=== PATIENT | male | born 1960 ===

== ENCOUNTER 2018-02-22 10:06 | Inpatient (IN) | payer MEDICARE, MEDICAID ==
[2018-02-22 10:16] VITALS: BMI 43.2
[2018-02-22] MEDS ORDERED: Albuterol-Ipratrop 3 mg / 0.5 (3 ml) UD INH STA ×2 (10:23→11:56)
[2018-02-22] MEDS ORDERED: Albuterol-Ipratrop 3 mg / 0.5 (3 ml) UD ONE ×2 (10:29→12:31)
[2018-02-22 11:16] LABS: BASO % 0.5 % (0.0-2.0); EOS % 0.3 % (0.0-4.0); HEMOGLOBIN 13.1 g/dL (12.0-18.0); MEAN CORPUSCULAR HEMOGLOBIN 30.6 pg (27.0-31.0); MEAN CORPUSCULAR HGB CONC 33.6 g/dL (33.0-37.0); MONO # 0.3 K/uL (0.0-0.8); MONO % 3.8 % (0.0-10.0); NEUT % 81.4 % (50.0-75.0); NRBC % 0.2 % (0.0-0.0); RBC 4.27 Mil/uL (4.40-5.90); RED CELL DISTRIBUTION WIDTH 15.4 % (11.5-14.5); WHITE BLOOD COUNT 7.4 K/uL (4.8-10.8)
[2018-02-22 11:33] LABS: ALB/GLOB RATIO 0.8 (1.0-2.1); ALBUMIN 4.2 g/dL (3.5-5.0); ALT/SGPT 27 U/L (21-72); AST/SGOT 62 U/L (17-59); B-TYPE NATRIURETIC PEPTIDE 159 pg/ml (0-900); BLOOD UREA NITROGEN 18 mg/dl (9-20); CALCIUM 8.8 mg/dL (8.4-10.2); GFR AFRICAN-AMERICAN > 60; GFR NON-AFRICAN AMERICAN > 60
[2018-02-22] MEDS ORDERED: Azithromycin 500 MG in Sodium Chloride 0.9% 250 ML IVPB STA (11:51)
[2018-02-22] MEDS ORDERED: Magnesium Sulfate 2 gm/50 ml 2 GM/50 ML BAG IVPB ONE (11:56)
--- NOTE | 2018-02-22 12:08 | ED PDOC ---
HPI: SOB/CHF/COPD Time Seen by Provider: 02/22/18 10:16 Chief Complaint (Nursing): Shortness Of Breath Chief Complaint (Provider): Shortness of breath History Per: Patient History/Exam Limitations: no limitations Onset/Duration Of Symptoms: Days (x3) Current Symptoms Are (Timing): Still Present Associated Symptoms: Productive Cough (clear phlegm ) Additional Complaint(s): Isac Mendez is a 57 year old male, with a past medical history of COPD and active smoker, HIV, HTN and depression, who was brought to the emergency department via EMS complaining of shortness of breath ongoing for x3 days associated with generalized weakness, cough and wheezing. Patient reports a productive cough with clear phlegm and dyspnea on exertion. Patient is currently using medications at home without relief. He denies any fever, chills , orthopnea or LOC. No further medical complaints. PMD: Dr. Dennis Past Medical History Reviewed: Historical Data, Nursing Documentation, Vital Signs Vital Signs: Last Vital Signs Temp 98.1 F 02/26/18 16:05 Pulse 91 H 02/26/18 16:05 Resp 18 02/26/18 16:05 BP 169/95 H 02/26/18 16:05 Pulse Ox 92 L 02/26/18 16:05 - Medical History PMH: Asthma, COPD, Depression, HIV, HTN - Surgical History Surgical History: Appendectomy - Family History Family History: States: Unknown Family Hx - Social History Current smoker - smoking cessation education provided: Yes (Heavy smoker >10 cigarretes daily) Alcohol: Social Drugs: Denies - Home Medications Home Medications: Ambulatory Orders Medication Instructions Recorded Budesonide/Formoterol Fumarate 2 puff IH Q12 02/22/18 [Symbicort 160-4.5 Mcg Inhaler] Dolutegravir Sodium [Tivicay] 50 mg PO HS 02/22/18 Emtricitabine/Tenofovir Diso 1 tab PO HS 02/22/18 [Truvada 200 MG-300 MG] Enalapril Maleate [Vasotec] 5 mg PO HS 02/22/18 Montelukast [Singulair] 10 mg PO HS 02/22/18 QUEtiapine [Seroquel] 100 mg PO HS 02/22/18 Sertraline [Zoloft] 100 mg PO Q12 02/22/18 Tiotropium [Spiriva] 18 mcg IH DAILY 02/22/18 clonazePAM [Klonopin] 0.5 mg PO Q12 02/22/18 Acetylcysteine 20% 2 ml INH RBID vial 02/26/18 Albuterol 0.083% [Albuterol 0.083% 2.5 mg INH RQ4 neb 02/26/18 Inhal Jennifer (2.5 mg/3 ml) UD] Enoxaparin [Lovenox] 40 mg SC DAILY syr 02/26/18 Methadone 5 mg PO DAILY tab 02/26/18 Methadone 30 mg PO DAILY tab 02/26/18 Nicotine 7 mg/24 hr [Nicoderm CQ] 1 patch TD DAILY patch 02/26/18 methylPREDNISolone [Solu-Medrol] 40 mg IVP Q8 ml 02/26/18 - Allergies Allergies/Adverse Reactions: Allergies Allergy/AdvReac Type Severity Reaction Status Date / Time No Known Allergies Allergy Verified 02/26/18 14:41 Review of Systems ROS Statement: Except As Marked, All Systems Reviewed And Found Negative Constitutional: Negative for: Fever, Chills Cardiovascular: Negative for: Chest Pain, Orthopnea Respiratory: Positive for: Cough (w/ clear phlegm), Shortness of Breath Gastrointestinal: Negative for: Vomiting, Abdominal Pain, Diarrhea Neurological: Positive for: Headache Physical Exam - Reviewed Nursing Documentation Reviewed: Yes Vital Signs Reviewed: Yes - Physical Exam Head Exam: Positive for: ATRAUMATIC, NORMAL INSPECTION, NORMOCEPHALIC Skin: Positive for: Normal Color, Warm, Dry, Rash (Scattered old appearing psoriatic rash ) Eye Exam: Positive for: Normal appearance, EOMI, PERRL ENT: Positive for: Normal ENT Inspection Neck: Positive for: Painless ROM Cardiovascular/Chest: Positive for: Regular Rate, Rhythm. Negative for: Murmur Respiratory: Positive for: Wheezing (bilateral ), Respiratory Distress ( moderate with cough and speaking partial sentences) Gastrointestinal/Abdominal: Positive for: Normal Exam (obese), Soft. Negative for: Tenderness Back: Positive for: Normal Inspection Extremity: Positive for: Normal ROM (full ROM to b/l lower extremities), Swelling (Trace edema to bilateral lower extremities with scattered ecchymosis ) Neurologic/Psych: Positive for: Alert, Oriented - Laboratory Results Result Diagrams: 02/23/18 06:15 02/23/18 06:15 - ECG O2 Sat by Pulse Oximetry: 96 (RA) Pulse Ox Interpretation: Normal Medical Decision Making Medical Decision Making: Time: 10:16 Initial Impression: COPD exacerbation r/o PNA or opportunistic infection. Initial Plan: --EKG --B-Type Natriuretic peptide --CMP --Troponin I --CBC w/ differential --Chest portable [RAD] --Duoneb 3 ml Inh --Zithromax 500 mg Sodium Chloride 0.9% 250 ml IVPB --Magnesium Sulfate 2 gm in 50 ml IVPB --SOLU-medrol 125 mg IVP --Blood culture --Reevaluation -CXR reviewed and revealed increased markings bilaterally. Read by me. -EKG: Normal sinus @ [address] changes and prolonged QTc 514. -Blood records reviewed, revealing no clinical significant abnormalities. Last CD-4 count was 563 in August. -Patient placed on Vapotherm for respiratory comfort. Given bronchodilators, he required Magnesium Sulfate and SOLU-medrol. We will initiate Azithromycin and obtain blood culture. 11:45 -Patient admitted to [facility] under PMD, Dr. Dennis. 12:30 -Discussed case with Dr. Page, [facility] resident. ----- Scribe Attestation: Documented by Bello Farmer, acting as a scribe for Candido Aleman MD. Provider Scribe Attestation: All medical record entries made by the Scribe were at my direction and personally dictated by me. I have reviewed the chart and agree that the record accurately reflects my personal performance of the history, physical exam, medical decision making, and the department course for this patient. I have also personally directed, reviewed, and agree with the discharge instructions and disposition. Disposition - Clinical Impression Clinical Impression: COPD exacerbation, HIV (human immunodeficiency virus infection), Respiratory failure - Patient ED Disposition Is Patient to be Admitted: Yes - Disposition Disposition Time: 11:45 Condition: STABLE - Pt Status Changed To: Hospital Disposition Of: Inpatient - Admit Certification Admit to Inpatient:: After my assessment, the patient will require hospitalization for at least two midnights. This is because of the severity of symptoms shown, intensity of services needed, and/or the medical risk in this patient being treated as an outpatient. - POA Present On Arrival: None
[2018-02-22] MEDS ORDERED: Azithromycin 500 MG IV IVPB ONE (12:31)
--- NOTE | 2018-02-22 12:51 | RAD ---
Date of service: 02/22/2018 HISTORY: Shortness of breath. COMPARISON: 10/12/2014. FINDINGS: LUNGS: No active pulmonary disease. PLEURA: No significant pleural effusion identified, no pneumothorax apparent. CARDIOVASCULAR: Normal. OSSEOUS STRUCTURES: No significant abnormalities. VISUALIZED UPPER ABDOMEN: Normal. OTHER FINDINGS: None. IMPRESSION: No active disease. No significant interval change compared to the prior examination(s).
--- NOTE | 2018-02-22 13:14 | CP.PCM.HP ---
History of Present Illness - History of Present Illness History of Present Illness: This is 57 y/o male with PMH of COPD, asymptomatic HIV (On ART), Hep C (treated) , substance abuse, hypertension, depression and Morbid obesity admitted to [facility] for evaluation and treatment of 3 days history of worsening dyspnea, and productive cough. As per patient, he gets SOB at rest since last 3 days, reports cough with occasional clear or white sputum (one episode of bloody sputum yesterday). Dyspnea associated with runny nose, occasional dizziness and palpitations, denies any fever, chills, recent weight changes, travel, or sick contact. Patient reports daily nonbloody/nonbilious vomiting. Patient is taking methadone and following up with Methadone clinic in [place]. PMD: Dr. Dennis PMH: COPD, asymptomatic HIV (On ART), Hep C (treated), substance abuse, hypertension and Morbid obesity PSH: Appendectomy Allg: NKDA Meds: Albuterol, Klonopin 0.5mg daily, Tivicay 50mg daily, Truvada PO daily, Enalapril 5mg daily, Advair, Montelukast 10mg, Seroquel 100mg, Zoloft 100mg daily, Spiriva, and Methadone 34mg daily (Confirmed with the clinic # [phone]) FH: Mother, decreased, hx with COPD. Father with multiple strokes, decreased SH: Patient lives with a girlfriend, Reports good family support: Brothers and sisters live in same town. Denies any recent use of alcohol or illicit drug use. smokes 2 cig/day currently ROS: As per HPI ER course: VS: Tm 99, HR 96, BP 141/93, RR 16, Spo2 92% PE: Moderate resp distress, wheezing, AAOx3 --EKG: NSR, incomplete RBBB, prolonged QT --CXR: No active disease, no significant interval change compared to the prior exam --B-Type Natriuretic peptide: 159 --CMP: wnl Na, K, cl, hco3, BUN and Cr, Significant for AST: 62, Alk phos: 134 --Troponin I: Negative x 1 --CBC w/ differential: No leukocytosis --Duoneb 3 ml Inh --Zithromax 500 mg Sodium Chloride 0.9% 250 ml IVPB --Magnesium Sulfate 2 gm in 50 ml IVPB --SOLU-medrol 125 mg IVP --Reglen 10mg IV --Blood culture Present on Admission - Present on Admission Any Indicators Present on Admission: No History of DVT/PE: No History of Uncontrolled Diabetes: No Urinary Catheter: No Decubitus Ulcer Present: No Past Patient History - Past Social History Alcohol: Social Drugs: Denies - CARDIAC Hx Hypertension: Yes - PULMONARY Hx Asthma: Yes Hx Chronic Obstructive Pulmonary Disease (COPD): Yes - ENDOCRINE/METABOLIC Hx Diabetes Mellitus Type 2: Yes (hx, not current) - HEMATOLOGICAL/ONCOLOGICAL Hx Human Immunodeficiency Virus (HIV): Yes - PSYCHIATRIC Hx Depression: Yes - SURGICAL HISTORY Hx Appendectomy: Yes - ANESTHESIA Hx Anesthesia: Yes Hx Anesthesia Reactions: No Meds Allergies/Adverse Reactions: Allergies Allergy/AdvReac Type Severity Reaction Status Date / Time No Known Allergies Allergy Verified 10/12/14 17:13 Physical Exam - Constitutional Appears: In Acute Distress, Other (Mild respiratory distress ) - Head Exam Head Exam: NORMAL INSPECTION - Eye Exam Eye Exam: EOMI, Normal appearance, PERRL. absent: Scleral icterus - ENT Exam ENT Exam: Mucous Membranes Moist Additional comments: no oral thrush - Neck Exam Neck exam: Positive for: Lymphadenopathy (anterior cervical). Negative for: Meningismus, Tenderness, Thyromegaly - Respiratory Exam Respiratory Exam: Decreased Breath Sounds, Rales, Wheezes. absent: Accessory Muscle Use Additional comments: On Oxygen NC - Cardiovascular Exam Cardiovascular Exam: REGULAR RHYTHM, +S1, +S2 - GI/Abdominal Exam GI & Abdominal Exam: Soft. absent: Rebound, Tenderness Additional comments: Abdominal obesity, Appendectomy surgical scar visible. Couldn't appreciate any organomegaly due to Obesity - Extremities Exam Extremities exam: Positive for: pedal edema (B/l), pedal pulses present. Negative for: tenderness - Back Exam Back exam: absent: CVA tenderness (L), CVA tenderness (R), muscle spasm, vertebral tenderness - Neurological Exam Neurological exam: Alert, CN II-XII Intact, Oriented x3, Reflexes Normal - Psychiatric Exam Psychiatric exam: Normal Affect - Skin Skin Exam: Dry, Intact, Normal Color, Warm Results - Vital Signs Recent Vital Signs: Last Vital Signs Temp 99 F 02/22/18 10:15 Pulse 88 02/22/18 12:43 Resp 22 08/03/18 12:43 BP 141/93 H 02/22/18 10:15 Pulse Ox 94 L 02/22/18 12:43 - Labs Result Diagrams: 02/22/18 10:49 02/22/18 10:49 Labs: Laboratory Results - last 24 hr 02/22/18 02/22/18 10:49 10:49 WBC 7.4 RBC 4.27 L Hgb 13.1 Hct 38.9 MCV 91.0 MCH 30.6 MCHC 33.6 RDW 15.4 H Plt Count 128 L D MPV 8.0 Neut % (Auto) 81.4 H Lymph % (Auto) 14.0 L [place] % (Auto) 3.8 Eos % (Auto) 0.3 Baso % (Auto) 0.5 Neut # (Auto) 6.0 Lymph # (Auto) 1.0 [place] # (Auto) 0.3 Eos # (Auto) 0.0 Baso # (Auto) 0.0 Sodium 139 Potassium 4.2 Chloride 99 Carbon Dioxide 29 Anion Gap 15 BUN 18 Creatinine 0.8 Est GFR ( Amer) > 60 Est GFR (Non-Af Amer) > 60 Random Glucose 116 H Calcium 8.8 Total Bilirubin 1.0 AST 62 H D ALT 27 Alkaline Phosphatase 134 H D Troponin I < 0.0120 NT-Pro-B Natriuret Pep 159 Total Protein 9.3 H Albumin 4.2 Globulin 5.1 H Albumin/Globulin Ratio 0.8 L Assessment & Plan - Assessment and Plan (Free Text) Assessment: A/P: 57 y/o male with PMH of COPD, asymptomatic HIV (On ART), Hep C (treated), substance abuse, hypertension, depression and Morbid obesity admitted to [facility] for evaluation and treatment of COPD exacerbation. COPD exacerbation - Acute on chronic - CXR: No active disease, no significant interval change compared to the prior exam - S/p ER: Duoneb 3 ml Inh, Zithromax 500 mg Sodium Chloride 0.9% 250 ml IVPB, Magnesium Sulfate 2 gm in 50 ml IVPB, SOLU-medrol 125 mg IVP - C/w Home meds: Albuterol HFA 2 puff Q6H PRN, Advair, Spiriva 18mcg daily, Montelukast 10mg daily - Monitor respiratory status: C/w NC as needed Human immunodeficiency virus (HIV) - Asymptomatic - Last CD4 count 563 (08/28/17) - C/w Tivicay 50mg daily, Truvada PO daily, compliant with medications ( Pharmacy was called and confirmed) - Dr. Dennis made aware of the admission History of Hepatitis C - Patient was treated in past, last treatment was 1 year ago Hypertension - Chronic, Controlled - C/w home medication: vasotec 5mg daily History of substance abuse - History of percocet and heroin abuse - C/w Methadone 34mg daily ([facility] methadone clinic was called and confirmed, # [phone]) Mood Disorders - Following up with psychiatrist at [facility] - C/w Home medications, Confirmed with pharmacy - Zoloft 100mg Q12H, Seroquel 100mg daily, klonopin 0.5mg Q12H DVT Prophylaxis - Lovenox 40mg SC Full Code Emergency Contact# [phone] (Sister, Molly Moralez)
[2018-02-22] MEDS ORDERED: Albuterol HFA 90 mcg/actuation (8 g) IH PRN (13:39)
[2018-02-22] MEDS ORDERED: Magnesium Sulfate 2 gm/50 ml 2 GM/50 ML BAG ONE (14:26)
[2018-02-22] MEDS: Tiotropium 18 mcg Cap For Inhalation IH SCH (16:38)
[2018-02-22] MEDS: Enoxaparin 40 mg Syringe SC SCH (16:41)
[2018-02-22] MEDS: Emtricitabine-Tenofovir 200 mg-300 mg Tab PO SCH (21:09)
[2018-02-22] MEDS: Fluticasone-Salmeterol 250-50mcg Diskus IH SCH (21:11)
[2018-02-23 07:18] LABS: BASO % 0.2 % (0.0-2.0); EOS % 0.5 % (0.0-4.0); HEMOGLOBIN 12.6 g/dL (12.0-18.0); LYMPH # 2.4 K/uL (1.0-4.3); MEAN CORPUSCULAR HEMOGLOBIN 30.8 pg (27.0-31.0); MEAN CORPUSCULAR HGB CONC 33.9 g/dL (33.0-37.0); MEAN PLATELET VOLUME 7.6 fl (7.2-11.7); MONO # 0.5 K/uL (0.0-0.8); MONO % 5.4 % (0.0-10.0); NEUT # 5.4 K/uL (1.8-7.0); NEUT % 64.9 % (50.0-75.0); NRBC % 0.1 % (0.0-0.0); RBC 4.09 Mil/uL (4.40-5.90); RED CELL DISTRIBUTION WIDTH 15.4 % (11.5-14.5); WHITE BLOOD COUNT 8.4 K/uL (4.8-10.8)
[2018-02-23 07:30] LABS: ALB/GLOB RATIO 0.8 (1.0-2.1); ALBUMIN 3.9 g/dL (3.5-5.0); ALT/SGPT 26 U/L (21-72); AST/SGOT 50 U/L (17-59); BLOOD UREA NITROGEN 18 mg/dl (9-20); CALCIUM 8.4 mg/dL (8.4-10.2); GFR AFRICAN-AMERICAN > 60; GFR NON-AFRICAN AMERICAN > 60
--- NOTE | 2018-02-23 07:54 | CARD ---
APPROVED REPORT Date of service: 02/22/2018 <Conclusion> Normal sinus rhythm Incomplete right bundle branch block Prolonged QT Abnormal ECG
[2018-02-23] MEDS: Fluticasone-Salmeterol 250-50mcg Diskus IH SCH ×2 (08:21→21:19)
[2018-02-23] MEDS: Tiotropium 18 mcg Cap For Inhalation IH SCH (08:22)
[2018-02-23] MEDS: Enoxaparin 40 mg Syringe SC SCH (08:23)
[2018-02-23] MEDS ORDERED: METHADONE PO SCH ×3 (09:00)
[2018-02-23] MEDS: MethylPREDNISolone 40 mg Vial IVP SCH ×2 (09:24→21:20)
--- NOTE | 2018-02-23 09:50 | CP.PCM.PN ---
Subjective - Date & Time of Evaluation Date of Evaluation: 02/23/18 Time of Evaluation: 08:00 - Subjective Subjective: Patient was seen and evaluated this morning at bedside, NAD. Patient is eating his breakfast, saturating at 96% on RA. Reports significant improved respiratory distressed compared to yesterday. Encouraged ambulation, Use NC as needed. Objective - Vital Signs/Intake and Output Vital Signs (last 24 hours): Temp Pulse Resp BP Pulse Ox 98.4 F 75 18 143/85 96 02/23/18 07:56 02/23/18 07:56 02/23/18 07:56 02/23/18 07:56 02/23/18 07:56 - Medications Medications: Current Medications Albuterol (Ventolin Hfa 90 Mcg/Actuation (8 G)) 2 puff IH Q6 PRN PRN Reason: Shortness of Breath Clonazepam (Klonopin) 0.5 mg PO Q12 [facility] Last Admin: 02/23/18 08:29 Dose: 0.5 mg Dolutegravir Sodium (Tivicay) 50 mg PO HS [facility] PRN Reason: Protocol Emtricitabine/Tenofovir (Truvada 200 Mg-300 Mg) 1 tab PO HS [facility] PRN Reason: Protocol Last Admin: 02/22/18 21:09 Dose: 1 tab Enalapril Maleate (Vasotec) 5 mg PO HS [facility] Last Admin: 02/22/18 21:11 Dose: 5 mg Enoxaparin Sodium (Lovenox) 40 mg SC DAILY [facility] PRN Reason: Protocol Last Admin: 02/23/18 08:23 Dose: 40 mg Methadone HCl (Methadone) 30 mg PO DAILY [facility] Last Admin: 02/23/18 09:28 Dose: 30 mg Methadone HCl (Methadone) 5 mg PO DAILY [facility] Last Admin: 02/23/18 09:27 Dose: 5 mg Methylprednisolone (Solu-Medrol) 40 mg IVP Q12 [facility] Last Admin: 02/23/18 09:24 Dose: 40 mg Montelukast Sodium (Singulair) 10 mg PO HS [facility] Last Admin: 02/22/18 21:09 Dose: 10 mg Nicotine (Nicoderm Cq) 1 patch TD DAILY [facility] Last Admin: 02/23/18 08:23 Dose: 1 patch Quetiapine Fumarate (Seroquel) 100 mg PO [facility] Last Admin: 02/22/18 21:10 Dose: 100 mg Fluticasone/Salmeterol (Advair Diskus 250/50) 1 puff IH Q12 [facility] Last Admin: 02/23/18 08:21 Dose: 1 puff Sertraline HCl (Zoloft) 100 mg PO Q12 [facility] Last Admin: 02/23/18 08:22 Dose: 100 mg Tiotropium [place] (Spiriva) 18 mcg IH DAILY [facility] Last Admin: 02/23/18 08:22 Dose: 18 mcg - Labs Labs: 02/23/18 06:15 02/23/18 06:15 - Constitutional Appears: No Acute Distress - Head Exam Head Exam: NORMAL INSPECTION - Eye Exam Eye Exam: EOMI, Normal appearance, PERRL Pupil Exam: NORMAL ACCOMODATION - ENT Exam ENT Exam: Mucous Membranes Moist - Neck Exam Neck Exam: Full ROM, Normal Inspection - Respiratory Exam Respiratory Exam: Decreased Breath Sounds, Prolonged Expiratory Phase, Wheezes, NORMAL BREATHING PATTERN. absent: Accessory Muscle Use, Respiratory Distress - Cardiovascular Exam Cardiovascular Exam: REGULAR RHYTHM, +S1, +S2 - GI/Abdominal Exam GI & Abdominal Exam: Soft. absent: Tenderness, Organomegaly, Pulsatile Mass, Rebound Additional comments: Abdominal obesity - Extremities Exam Extremities Exam: Full ROM, Normal Capillary Refill, Normal Inspection. absent : Pedal Edema - Back Exam Back Exam: NORMAL INSPECTION. absent: CVA tenderness (L), CVA tenderness (R) - Neurological Exam Neurological Exam: Alert, Awake, CN II-XII Intact, Normal Gait, Oriented x3 Neuro motor strength exam: Left Upper Extremity: 4, Right Upper Extremity: 4, Left Lower Extremity: 4, Right Lower Extremity: 4 - Psychiatric Exam Psychiatric exam: Normal Affect, Normal Mood - Skin Additional comments: rashes, possibly due to chronic conditions (Spider angiomas) Assessment and Plan - Assessment and Plan (Free Text) Assessment: A/P: 57 y/o male with PMH of COPD, asymptomatic HIV (On ART), Hep C (treated), substance abuse, hypertension, depression and Morbid obesity admitted to [facility] for evaluation and treatment of COPD exacerbation. COPD exacerbation - Acute on chronic - C/w Home meds: Albuterol HFA 2 puff Q6H PRN, Advair, Spiriva 18mcg daily, Montelukast 10mg daily - Monitor respiratory status: C/w NC as needed, encourage ambulation - C/w MethylPred 40mg IVP Q12H Human immunodeficiency virus (HIV) - Asymptomatic - Last CD4 count 563 (08/28/17) - C/w Tivicay 50mg daily, Truvada PO daily, compliant with medications ( Pharmacy was called and confirmed) - Dr. Dennis made aware of the admission History of Hepatitis C - Patient was treated in past, last treatment was 1 year ago Hypertension - Chronic, Controlled - C/w home medication: vasotec 5mg daily History of substance abuse - History of percocet and heroin abuse - C/w Methadone 35mg daily ([facility] methadone clinic was called and confirmed, # [phone]) Mood Disorders - Following up with psychiatrist at [facility] - C/w Home medications, Confirmed with pharmacy - Zoloft 100mg Q12H, Seroquel 100mg daily, klonopin 0.5mg Q12H DVT Prophylaxis - Lovenox 40mg SC Full Code Emergency Contact# [phone] (Sister, Molly Moralez)
[2018-02-23] MEDS ORDERED: Acetylcysteine 20% Inhal Soln (4ml) PO SCH (17:00)
[2018-02-23] MEDS ORDERED: Acetylcysteine 20% Inhal Soln (4ml) INH SCH (20:00)
[2018-02-23] MEDS: Acetylcysteine 20% Inhal Soln (4ml) INH SCH (20:11)
[2018-02-23] MEDS: Emtricitabine-Tenofovir 200 mg-300 mg Tab PO SCH (21:24)
[2018-02-24] MEDS: Acetylcysteine 20% Inhal Soln (4ml) INH SCH ×2 (08:05→19:29)
--- NOTE | 2018-02-24 08:32 | CP.PCM.PN ---
Subjective - Date & Time of Evaluation Date of Evaluation: 02/24/18 Time of Evaluation: 08:30 - Subjective Subjective: Patient seen and examined at bedside, reports SOB and wet cough continue with minimal exertion especially when walking to the bathroom. He has not been able to produce a sputum sample yet. Denies chest pain, fevers, chills or nasal congestion. Objective - Vital Signs/Intake and Output Vital Signs (last 24 hours): Temp Pulse Resp BP Pulse Ox 97.6 F 74 18 159/90 H 94 L 02/24/18 08:10 02/24/18 08:10 02/24/18 08:10 02/24/18 08:10 02/24/18 08:10 - Medications Medications: Current Medications Acetylcysteine (Acetylcysteine 20%) 2 ml INH RBID [facility] Last Admin: 02/23/18 20:11 Dose: Not Given Albuterol (Ventolin Hfa 90 Mcg/Actuation (8 G)) 2 puff IH Q6 PRN PRN Reason: Shortness of Breath Clonazepam (Klonopin) 0.5 mg PO Q12 [facility] Last Admin: 02/23/18 21:19 Dose: 0.5 mg Dolutegravir Sodium (Tivicay) 50 mg PO HS [facility] PRN Reason: Protocol Last Admin: 02/23/18 21:21 Dose: 50 mg Emtricitabine/Tenofovir (Truvada 200 Mg-300 Mg) 1 tab PO HS [facility] PRN Reason: Protocol Last Admin: 02/23/18 21:24 Dose: 1 tab Enalapril Maleate (Vasotec) 5 mg PO HS [facility] Last Admin: 02/23/18 21:22 Dose: 5 mg Enoxaparin Sodium (Lovenox) 40 mg SC DAILY [facility] PRN Reason: Protocol Last Admin: 02/23/18 08:23 Dose: 40 mg Methadone HCl (Methadone) 30 mg PO DAILY [facility] Last Admin: 02/23/18 09:28 Dose: 30 mg Methadone HCl (Methadone) 5 mg PO DAILY [facility] Last Admin: 02/23/18 09:27 Dose: 5 mg Methylprednisolone (Solu-Medrol) 40 mg IVP Q12 [facility] Last Admin: 02/23/18 21:20 Dose: 40 mg Montelukast Sodium (Singulair) 10 mg PO HS [facility] Last Admin: 02/23/18 21:20 Dose: 10 mg Nicotine (Nicoderm Cq) 1 patch TD DAILY [facility] Last Admin: 02/23/18 08:23 Dose: 1 patch Quetiapine Fumarate (Seroquel) 100 mg PO HS [facility] Last Admin: 02/23/18 21:19 Dose: 100 mg Fluticasone/Salmeterol (Advair Diskus 250/50) 1 puff IH Q12 [facility] Last Admin: 02/23/18 21:19 Dose: 1 puff Sertraline HCl (Zoloft) 100 mg PO Q12 [facility] Last Admin: 02/23/18 21:23 Dose: 100 mg Tiotropium [place] (Spiriva) 18 mcg IH DAILY [facility] Last Admin: 02/23/18 08:22 Dose: 18 mcg - Labs Labs: 02/23/18 06:15 02/23/18 06:15 - Constitutional Appears: No Acute Distress - Head Exam Head Exam: ATRAUMATIC, NORMOCEPHALIC - Eye Exam Eye Exam: EOMI - ENT Exam ENT Exam: Mucous Membranes Moist - Neck Exam Neck Exam: Full ROM - Respiratory Exam Respiratory Exam: Wheezes (significant diffuse wheezes ). absent: Accessory Muscle Use, Rales, Rhonchi Additional comments: on 2L supplemental O2 via nasal cannula - Cardiovascular Exam Cardiovascular Exam: +S1, +S2. absent: Murmur - GI/Abdominal Exam GI & Abdominal Exam: Soft (significant pannus), Normal Bowel Sounds. absent: Tenderness - Extremities Exam Extremities Exam: Full ROM - Neurological Exam Neurological Exam: Alert, Awake, CN II-XII Intact, Oriented x3 - Skin Skin Exam: Dry, Warm (spider angiomas diffuse over bilateral upper extremities, abdominal area and lower extremities) Assessment and Plan - Assessment and Plan (Free Text) Assessment: 57 yr old M admitted for COPD exacerbation with PMHx of COPD, asymptomatic HIV ( on ART), Hx Hep C (treated), substance abuse, hypertension, depression and morbid obesity. COPD exacerbation -Acute on chronic -continue albuterol 0.083% INH Q4, Methylprednisolone 40mg IVP Q8H, Mucomyst 2ml INH RBID, -continue home medications: Advair 1 puff IH Q12, Spiriva 18mcg IH daily, Montelukast 10mg PO QHS -2L supplemental O2 via nasal cannula to keep O2 sat above 92% -f/u 6min walk test -Pulmonology consult appreciated: Dr. Carey Human immunodeficiency virus (HIV) -Chronic, Asymptomatic -01/04/18: CD4 count 672, viral load < 20, -continue home medications: Tivicay 50mg daily, Truvada PO daily, compliant with medications (Pharmacy was called and confirmed) -Dr. Dennis made aware of the admission History of Hepatitis C -Patient was treated in past, last treatment was 1 year ago -no further workup required Hypertension -Chronic, uncontrolled -patient has elevated BP on occasion, will consider increasing vasotec -continue home medication: vasotec 5mg PO daily -monitor BP History of substance abuse -History of percocet and heroin abuse -continue Methadone 35mg daily ([facility] methadone clinic was called and confirmed, dose is 34mg PO QD, they approved giving 35mg as we only have doses in multiples of 5mg # [phone]) Mood Disorders -patient follows regularly with psychiatrist at [facility]mental health clinic across hospital -continue home medications (confirmed with pharmacy): Zoloft 100mg PO Q12H, Seroquel PO 100mg QD, klonopin 0.5mg PO Q12H -denies SI/HI at this time DVT Prophylaxis -Lovenox 40mg SC Full Code Emergency Contact# [phone] (Sister, Molly Moralez)
[2018-02-24] MEDS: Fluticasone-Salmeterol 250-50mcg Diskus IH SCH ×2 (08:58→21:30)
[2018-02-24] MEDS: MethylPREDNISolone 40 mg Vial IVP SCH ×2 (08:59→16:15)
[2018-02-24] MEDS: Enoxaparin 40 mg Syringe SC SCH (08:59)
[2018-02-24] MEDS: Tiotropium 18 mcg Cap For Inhalation IH SCH (09:00)
[2018-02-24] MEDS ORDERED: Albuterol-Ipratrop 3 mg / 0.5 (3 ml) UD INH PRN (09:15)
[2018-02-24] MEDS ORDERED: Albuterol 0.083% Inhal Sol (2.5 mg/3 mL) UD INH PRN (10:29)
[2018-02-24] MEDS ORDERED: Albuterol-Ipratrop 3 mg / 0.5 (3 ml) UD INH SCH (11:00)
[2018-02-24] MEDS: Albuterol 0.083% Inhal Sol (2.5 mg/3 mL) UD INH SCH ×3 (11:02→19:30)
[2018-02-24] MEDS: Emtricitabine-Tenofovir 200 mg-300 mg Tab PO SCH (21:34)
[2018-02-25] MEDS: Albuterol 0.083% Inhal Sol (2.5 mg/3 mL) UD INH SCH ×6 (00:10→19:40)
[2018-02-25] MEDS: MethylPREDNISolone 40 mg Vial IVP SCH ×3 (01:02→16:58)
[2018-02-25] MEDS: Acetylcysteine 20% Inhal Soln (4ml) INH SCH ×2 (07:48→19:40)
[2018-02-25] MEDS: Enoxaparin 40 mg Syringe SC SCH (08:25)
[2018-02-25] MEDS: Fluticasone-Salmeterol 250-50mcg Diskus IH SCH ×2 (08:26→22:00)
[2018-02-25] MEDS: Tiotropium 18 mcg Cap For Inhalation IH SCH (08:29)
--- NOTE | 2018-02-25 08:46 | CP.PCM.PN ---
Subjective - Date & Time of Evaluation Date of Evaluation: 02/25/18 Time of Evaluation: 07:45 - Subjective Subjective: Patient seen and examined this morning at bedside. NAD, patient is coughing, on 1.5 O2 NC (Used it whole night), reports SOB when he gets up to the bathroom. Patient is tolerating PO, coughing up yellow sputum, states medications helping with bringing up sputum. Denies any chest pain, fever, vomiting, diarrhea, dizziness, or weakness. will get EKG today (Previous one with QT prolongation) Objective - Vital Signs/Intake and Output Vital Signs (last 24 hours): Temp Pulse Resp BP Pulse Ox 97.8 F 67 20 148/80 95 02/25/18 05:00 02/25/18 05:00 02/25/18 05:00 02/25/18 05:00 02/25/18 05:00 - Medications Medications: Current Medications Acetylcysteine (Acetylcysteine 20%) 2 ml INH RBID [facility] Last Admin: 02/25/18 07:48 Dose: 2 ml Albuterol Sulfate (Albuterol 0.083% Inhal Jennifer (2.5 Mg/3 Ml) Ud) 2.5 mg INH RQ4 [facility] Last Admin: 02/25/18 07:48 Dose: 2.5 mg Clonazepam (Klonopin) 0.5 mg PO Q12 [facility] Last Admin: 02/25/18 08:26 Dose: 0.5 mg Dolutegravir Sodium (Tivicay) 50 mg PO HS [facility] PRN Reason: Protocol Last Admin: 02/24/18 21:33 Dose: 50 mg Emtricitabine/Tenofovir (Truvada 200 Mg-300 Mg) 1 tab PO HS [facility] PRN Reason: Protocol Last Admin: 02/24/18 21:34 Dose: 1 tab Enalapril Maleate (Vasotec) 5 mg PO HS [facility] Last Admin: 02/24/18 21:34 Dose: 5 mg Enoxaparin Sodium (Lovenox) 40 mg SC DAILY [facility] PRN Reason: Protocol Last Admin: 02/25/18 08:25 Dose: 40 mg Famotidine (Pepcid) 20 mg PO DAILY [facility] Last Admin: 02/25/18 08:27 Dose: 20 mg Methadone HCl (Methadone) 30 mg PO DAILY [facility] Last Admin: 02/25/18 08:26 Dose: 30 mg Methadone HCl (Methadone) 5 mg PO DAILY [facility] Last Admin: 02/25/18 08:29 Dose: 5 mg Methylprednisolone (Solu-Medrol) 40 mg IVP Q8 [facility] Last Admin: 02/25/18 08:25 Dose: 40 mg Montelukast Sodium (Singulair) 10 mg PO HS [facility] Last Admin: 02/24/18 21:31 Dose: 10 mg Nicotine (Nicoderm Cq) 1 patch TD DAILY [facility] Last Admin: 02/25/18 08:28 Dose: 1 patch Quetiapine Fumarate (Seroquel) 100 mg PO HS [facility] Last Admin: 02/24/18 21:31 Dose: 100 mg Fluticasone/Salmeterol (Advair Diskus 250/50) 1 puff IH Q12 [facility] Last Admin: 02/25/18 08:26 Dose: 1 puff Sertraline HCl (Zoloft) 100 mg PO Q12 [facility] Last Admin: 02/25/18 08:27 Dose: 100 mg Tiotropium [place] (Spiriva) 18 mcg IH DAILY [facility] Last Admin: 02/25/18 08:29 Dose: 18 mcg - Labs Labs: 02/23/18 06:15 02/23/18 06:15 - Constitutional Appears: No Acute Distress - Head Exam Head Exam: ATRAUMATIC, NORMAL INSPECTION, NORMOCEPHALIC - Eye Exam Eye Exam: EOMI, Normal appearance, PERRL Pupil Exam: NORMAL ACCOMODATION - ENT Exam ENT Exam: Mucous Membranes Moist - Neck Exam Neck Exam: Normal Inspection - Respiratory Exam Respiratory Exam: Decreased Breath Sounds, Wheezes (Scattered ), NORMAL BREATHING PATTERN. absent: Accessory Muscle Use - Cardiovascular Exam Cardiovascular Exam: REGULAR RHYTHM, +S1, +S2 - GI/Abdominal Exam GI & Abdominal Exam: Soft, Normal Bowel Sounds. absent: Tenderness Additional comments: Obese abdomen - Extremities Exam Extremities Exam: Normal Inspection. absent: Joint Swelling, Pedal Edema - Back Exam Back Exam: NORMAL INSPECTION. absent: CVA tenderness (L), CVA tenderness (R) - Neurological Exam Neurological Exam: Alert, Awake, CN II-XII Intact, Oriented x3 - Psychiatric Exam Psychiatric exam: Normal Affect - Skin Additional comments: Chronic rashes with spider angiomas Assessment and Plan - Assessment and Plan (Free Text) Assessment: A/P: 57 yr old M admitted for COPD exacerbation with PMHx of COPD, asymptomatic HIV ( on ART), Hx Hep C (treated), substance abuse, hypertension, depression and morbid obesity. COPD exacerbation -Acute on chronic -continue albuterol 0.083% INH Q4, Methylprednisolone 40mg IVP Q8H, Mucomyst 2ml INH RBID, -continue home medications: Advair 1 puff IH Q12, Spiriva 18mcg IH daily, Montelukast 10mg PO QHS -2L supplemental O2 via nasal cannula to keep O2 sat above 92% -f/u 6min walk test -Pulmonology consult appreciated: Dr. Carey QT prolongation and incomplete RBBB on initial EKG in ER - Follow up EKG Human immunodeficiency virus (HIV) -Chronic, Asymptomatic -01/04/18: CD4 count 672, viral load < 20, -continue home medications: Tivicay 50mg daily, Truvada PO daily, compliant with medications (Pharmacy was called and confirmed) -Dr. Dennis made aware of the admission History of Hepatitis C -Patient was treated in past, last treatment was 1 year ago -no further workup required Hypertension -Chronic, uncontrolled -patient has elevated BP on occasion, will consider increasing vasotec -continue home medication: vasotec 5mg PO daily -monitor BP History of substance abuse -History of percocet and heroin abuse -continue Methadone 35mg daily ([facility] methadone clinic was called and confirmed, dose is 34mg PO QD, they approved giving 35mg as we only have doses in multiples of 5mg # [phone]) Mood Disorders -patient follows regularly with psychiatrist at [facility]-mental health clinic across hospital -continue home medications (confirmed with pharmacy): Zoloft 100mg PO Q12H, Seroquel PO 100mg QD, klonopin 0.5mg PO Q12H -denies SI/HI at this time Preventive Care - Follow up B12, TSH and Folate - Follow up Alpha-1 antiT (Reports family hx of liver and lung conditions) DVT Prophylaxis -Lovenox 40mg SC Full Code Emergency Contact# [phone] (Sister, Molly Mroalez)
--- NOTE | 2018-02-25 13:37 | CP.PCM.CON ---
History of Present Illness - History of Present Illness History of Present Illness: Pulmonary consult called due to respiratory insufficiency, 57 y/o M, Hx of COPD/ Asthma, asymptomatic HIV on ART, Emphysema, IV drug abuse following up with Methadone clinic in [place]. Pt was brought on 02/24/18 via EMS to ER [facility] to be evaluated for gradually increased moderate to severe SOB that began 3 days [employer], associated to hacking cough with productive yellowish sputum and one episode of bloody sputum day [employer], generalized pain of moderate to severe intensity 8:10. Pt using Albuterol, Advair, Spiriva at home with no relief. Worsening symptoms: KHAN, SOB at rest, active heavy smoker, headache, morbid obesity BMI: 43.2 Aggravated factor: Movements/Exercise. Pt denied: Fever, chills, n/v/d, abdominal pain, urinary symptoms, CP, LOC, palpitations, sick contact, recent travel out of [facility]. CXR: No active disease EKG: Normal sinus rhythm. Review of Systems - Constitutional Constitutional: Headache - EENT Eyes: Other (negative) Ears: Other (negative) Nose/Mouth/Throat: Other (negative) - Cardiovascular Cardiovascular: Orthopnea - Respiratory Respiratory: Cough, Dyspnea, Dyspnea on Exertion, Wheezing - Gastrointestinal Gastrointestinal: Other (negative) - Genitourinary Genitourinary: Other (negative) - Musculoskeletal Musculoskeletal: Other (Generalized pain) - Integumentary Integumentary: Rash (chronic) - Neurological Neurological: Headaches - Psychiatric Psychiatric: Anxiety, Depression - Endocrine Endocrine: Other (morbid obesity) - Hematologic/Lymphatic Hematologic: Other (negative) Past Patient History - Past Medical History & Family History Past Medical History?: Yes Pertinent Family History: Mother COPD. Father: Multiple silva. - Past Social History Smoking Status: Light Smoker < 10 Cigarettes Daily Alcohol: None Drugs: Other (IV drug abuse) Home Situation {Lives}: Alone - CARDIAC Hx Cardiac Disorders: Yes Hx Hypertension: Yes - PULMONARY Hx Respiratory Disorders: Yes Hx Asthma: Yes Hx Chronic Obstructive Pulmonary Disease (COPD): Yes - HEENT Hx HEENT Problems: No - RENAL Hx Chronic Kidney Disease: No - ENDOCRINE/METABOLIC Hx Endocrine Disorders: Yes Hx Diabetes Mellitus Type 2: Yes (hx, not current) - HEMATOLOGICAL/ONCOLOGICAL Hx Blood Disorders: Yes Hx Human Immunodeficiency Virus (HIV): Yes - INTEGUMENTARY Hx Dermatological Problems: Yes Other/Comment: rashes - MUSCULOSKELETAL/RHEUMATOLOGICAL Hx Musculoskeletal Disorders: Yes (generalized body pain.) Hx Falls: No - GASTROINTESTINAL Hx Gastrointestinal Disorders: No - GENITOURINARY/GYNECOLOGICAL Hx Genitourinary Disorders: No - PSYCHIATRIC Hx Psychophysiologic Disorder: Yes Hx Anxiety: Yes Hx Depression: Yes Hx Substance Use: Yes - SURGICAL HISTORY Hx Surgeries: Yes Hx Appendectomy: Yes - ANESTHESIA Hx Anesthesia: Yes Hx Anesthesia Reactions: No Meds Allergies/Adverse Reactions: Allergies Allergy/AdvReac Type Severity Reaction Status Date / Time No Known Allergies Allergy Verified 10/12/14 17:13 - Medications Medications: Current Medications Acetylcysteine (Acetylcysteine 20%) 2 ml INH RBID [facility] Last Admin: 02/25/18 07:48 Dose: 2 ml Albuterol Sulfate (Albuterol 0.083% Inhal Jennifer (2.5 Mg/3 Ml) Ud) 2.5 mg INH RQ4 [facility] Last Admin: 02/25/18 11:21 Dose: 2.5 mg Clonazepam (Klonopin) 0.5 mg PO Q12 [facility] Last Admin: 02/25/18 08:26 Dose: 0.5 mg Dolutegravir Sodium (Tivicay) 50 mg PO HS [facility] PRN Reason: Protocol Last Admin: 02/24/18 21:33 Dose: 50 mg Emtricitabine/Tenofovir (Truvada 200 Mg-300 Mg) 1 tab PO HS [facility] PRN Reason: Protocol Last Admin: 02/24/18 21:34 Dose: 1 tab Enalapril Maleate (Vasotec) 5 mg PO HS [facility] Last Admin: 02/24/18 21:34 Dose: 5 mg Enoxaparin Sodium (Lovenox) 40 mg SC DAILY [facility] PRN Reason: Protocol Last Admin: 02/25/18 08:25 Dose: 40 mg Famotidine (Pepcid) 20 mg PO DAILY [facility] Last Admin: 02/25/18 08:27 Dose: 20 mg Methadone HCl (Methadone) 30 mg PO DAILY [facility] Last Admin: 02/25/18 08:26 Dose: 30 mg Methadone HCl (Methadone) 5 mg PO DAILY [facility] Last Admin: 02/25/18 08:29 Dose: 5 mg Methylprednisolone (Solu-Medrol) 40 mg IVP Q8 [facility] Last Admin: 02/25/18 08:25 Dose: 40 mg Montelukast Sodium (Singulair) 10 mg PO HS [facility] Last Admin: 02/24/18 21:31 Dose: 10 mg Nicotine (Nicoderm Cq) 1 patch TD DAILY [facility] Last Admin: 02/25/18 08:28 Dose: 1 patch Quetiapine Fumarate (Seroquel) 100 mg PO HS [facility] Last Admin: 02/24/18 21:31 Dose: 100 mg Fluticasone/Salmeterol (Advair Diskus 250/50) 1 puff IH Q12 [facility] Last Admin: 02/25/18 08:26 Dose: 1 puff Sertraline HCl (Zoloft) 100 mg PO Q12 [facility] Last Admin: 02/25/18 08:27 Dose: 100 mg Tiotropium [place] (Spiriva) 18 mcg IH DAILY [facility] Last Admin: 02/25/18 08:29 Dose: 18 mcg Physical Exam - Constitutional Appears: Chronically Ill - Head Exam Head Exam: NORMAL INSPECTION - Eye Exam Eye Exam: PERRL - ENT Exam ENT Exam: Normal Exam - Neck Exam Neck exam: Positive for: Normal Inspection - Respiratory Exam Respiratory Exam: Decreased Breath Sounds (b/l), Wheezes - Cardiovascular Exam Cardiovascular Exam: REGULAR RHYTHM - GI/Abdominal Exam GI & Abdominal Exam: Normal Bowel Sounds, Soft Additional comments: Large abdomen, obese. - Extremities Exam Extremities exam: Positive for: pedal edema (b/l), pedal pulses present - Back Exam Back exam: NORMAL INSPECTION. absent: CVA tenderness (L), CVA tenderness (R) - Neurological Exam Neurological exam: Alert, Oriented x3 Additional comments: No motor/sensory deficit. - Psychiatric Exam Psychiatric exam: Normal Mood - Skin Skin Exam: Rash, Warm Results - Vital Signs Recent Vital Signs: Last Vital Signs Temp 97.6 F 02/25/18 08:00 Pulse 69 02/25/18 08:00 Resp 20 02/25/18 08:00 BP 147/82 02/25/18 08:00 Pulse Ox 93 L 02/25/18 08:00 reviewed Enoc - Labs Result Diagrams: 02/23/18 06:15 02/23/18 06:15 Labs: reviewed J.PKalliereviewed J.PKallie - EKG Data EKG comments: reviewed LeonoraPKallie - Imaging and Cardiology Chest x-ray Status: Report reviewed by me (J.P.) Assessment & Plan (1) Acute exacerbation of COPD with asthma Status: Acute Priority: High (2) HIV (human immunodeficiency virus infection) Status: Acute Priority: High - Assessment and Plan (Free Text) Plan: Continue NC 2 L/M, Solu-Medrol, Albuterol, Advair, Spiriva and rest of Tx. - Date & Time Date: 02/25/18 Time: 11:15
[2018-02-25 14:17] LABS: ABG ALLEN TEST YES; ARTERIAL BLOOD GAS HCO3 26.5 mmol/L (21-28); ARTERIAL BLOOD GAS HEMOGLOBIN 13.6 g/dL (11.7-17.4); ARTERIAL BLOOD GAS O2 CAPACITY 18.5 mL/dL (16-24); ARTERIAL BLOOD GAS O2 CONTENT 17.7 ML/dL (15-23); ARTERIAL BLOOD GAS O2 SAT 95.8 % (95-98); ARTERIAL BLOOD GAS PCO2 43 mm/Hg (35-45); ARTERIAL BLOOD GAS PH 7.41 (7.35-7.45); ARTERIAL BLOOD GAS PO2 73 mm/Hg (80-100); ARTERIAL BLOOD GAS TCO2 28.6 mmol/L (22-28)
--- NOTE | 2018-02-25 18:20 | CARD ---
APPROVED REPORT Date of service: 02/25/2018 <Conclusion> Normal sinus rhythm Right bundle branch block Abnormal ECG
[2018-02-25] MEDS: Emtricitabine-Tenofovir 200 mg-300 mg Tab PO SCH (22:03)
[2018-02-26] MEDS: Albuterol 0.083% Inhal Sol (2.5 mg/3 mL) UD INH SCH ×6 (00:07→23:18)
[2018-02-26 00:22] VITALS: RESP 18
[2018-02-26] MEDS: MethylPREDNISolone 40 mg Vial IVP SCH ×2 (00:55→08:42)
[2018-02-26] MEDS: Acetylcysteine 20% Inhal Soln (4ml) INH SCH (08:08)
[2018-02-26] MEDS: Fluticasone-Salmeterol 250-50mcg Diskus IH SCH (08:41)
[2018-02-26] MEDS: Enoxaparin 40 mg Syringe SC SCH (08:41)
[2018-02-26] MEDS: Tiotropium 18 mcg Cap For Inhalation IH SCH (08:42)
--- NOTE | 2018-02-26 11:39 | CP.PCM.PN ---
Subjective - Date & Time of Evaluation Date of Evaluation: 02/26/18 Time of Evaluation: 07:30 - Subjective Subjective: Patient seen and examined this morning at bedside, NAD. Continues using NC overnight and coughing overnight, states SOB with exertion. 6 mins walk test was stopped yesterday due to de-saturation. Tolerating PO intake, denies any dizziness, chest pain, abdominal pain, f/c/n/v/d. Objective - Vital Signs/Intake and Output Vital Signs (last 24 hours): Temp Pulse Resp BP Pulse Ox 97.7 F 78 18 124/77 94 L 02/26/18 08:16 02/26/18 08:16 02/26/18 08:16 02/26/18 08:16 02/26/18 08:16 - Medications Medications: Current Medications Acetylcysteine (Acetylcysteine 20%) 2 ml INH RBID [facility] Last Admin: 02/26/18 08:08 Dose: 2 ml Albuterol Sulfate (Albuterol 0.083% Inhal Jennifer (2.5 Mg/3 Ml) Ud) 2.5 mg INH RQ4 [facility] Last Admin: 02/26/18 08:07 Dose: 2.5 mg Clonazepam (Klonopin) 0.5 mg PO Q12 [facility] Last Admin: 02/26/18 08:40 Dose: 0.5 mg Dolutegravir Sodium (Tivicay) 50 mg PO HS [facility] PRN Reason: Protocol Last Admin: 02/25/18 22:02 Dose: 50 mg Emtricitabine/Tenofovir (Truvada 200 Mg-300 Mg) 1 tab PO HS [facility] PRN Reason: Protocol Last Admin: 02/25/18 22:03 Dose: 1 tab Enalapril Maleate (Vasotec) 5 mg PO HS [facility] Last Admin: 02/25/18 22:12 Dose: Not Given Enoxaparin Sodium (Lovenox) 40 mg SC DAILY [facility] PRN Reason: Protocol Last Admin: 02/26/18 08:41 Dose: 40 mg Famotidine (Pepcid) 20 mg PO DAILY [facility] Last Admin: 02/26/18 08:45 Dose: 20 mg Methadone HCl (Methadone) 30 mg PO DAILY [facility] Last Admin: 02/26/18 08:39 Dose: 30 mg Methadone HCl (Methadone) 5 mg PO DAILY [facility] Last Admin: 02/26/18 08:40 Dose: 5 mg Methylprednisolone (Solu-Medrol) 40 mg IVP Q8 [facility] Last Admin: 02/26/18 08:42 Dose: 40 mg Montelukast Sodium (Singulair) 10 mg PO [facility] Last Admin: 02/25/18 22:01 Dose: 10 mg Nicotine (Nicoderm Cq) 1 patch TD DAILY [facility] Last Admin: 02/26/18 08:43 Dose: 1 patch Quetiapine Fumarate (Seroquel) 100 mg PO [facility] Last Admin: 02/25/18 22:01 Dose: 100 mg Fluticasone/Salmeterol (Advair Diskus 250/50) 1 puff IH Q12 [facility] Last Admin: 02/26/18 08:41 Dose: 1 puff Sertraline HCl (Zoloft) 100 mg PO Q12 [facility] Last Admin: 02/26/18 08:42 Dose: 100 mg Tiotropium [place] (Spiriva) 18 mcg IH DAILY [facility] Last Admin: 02/26/18 08:42 Dose: 18 mcg - Labs Labs: 02/23/18 06:15 02/23/18 06:15 - Constitutional Appears: No Acute Distress - Head Exam Head Exam: NORMAL INSPECTION - Eye Exam Eye Exam: EOMI, Normal appearance, PERRL Pupil Exam: NORMAL ACCOMODATION - ENT Exam ENT Exam: Mucous Membranes Moist - Neck Exam Neck Exam: Full ROM, Normal Inspection - Respiratory Exam Respiratory Exam: Decreased Breath Sounds, Prolonged Expiratory Phase, Rales, Wheezes (Scattered ), NORMAL BREATHING PATTERN. absent: Accessory Muscle Use, Chest Wall Tenderness, Respiratory Distress - Cardiovascular Exam Cardiovascular Exam: REGULAR RHYTHM, +S1, +S2 - GI/Abdominal Exam GI & Abdominal Exam: Soft, Normal Bowel Sounds. absent: Tenderness - Extremities Exam Extremities Exam: Normal Inspection - Back Exam Back Exam: absent: CVA tenderness (L), CVA tenderness (R) - Neurological Exam Neurological Exam: Alert, Awake, CN II-XII Intact, Oriented x3 Neuro motor strength exam: Left Upper Extremity: 4, Right Upper Extremity: 4, Left Lower Extremity: 4, Right Lower Extremity: 4 - Psychiatric Exam Psychiatric exam: Normal Affect - Skin Additional comments: Chronic skin rashes Assessment and Plan - Assessment and Plan (Free Text) Assessment: A/P: 57 yr old M admitted for COPD exacerbation with PMHx of COPD, asymptomatic HIV ( on ART), Hx Hep C (treated), substance abuse, hypertension, depression and morbid obesity. COPD exacerbation -Acute on chronic -Pulmonology consult appreciated: Dr. Carey -continue albuterol 0.083% INH Q4, Methylprednisolone 40mg IVP Q8H, Mucomyst 2ml INH RBID, -continue home medications: Advair 1 puff IH Q12, Spiriva 18mcg IH daily, Montelukast 10mg PO QHS -2L supplemental O2 via nasal cannula to keep O2 sat above 92% -Possible TCU placement Human immunodeficiency virus (HIV) -Chronic, Asymptomatic -01/04/18: CD4 count 672, viral load < 20, -continue home medications: Tivicay 50mg daily, Truvada PO daily, compliant with medications (Pharmacy was called and confirmed) -Dr. Dennis made aware of the admission History of Hepatitis C -Patient was treated in past, last treatment was 1 year ago -no further workup required Hypertension -Chronic, uncontrolled -patient has elevated BP on occasion, will consider increasing vasotec -continue home medication: vasotec 5mg PO daily -monitor BP History of substance abuse -History of percocet and heroin abuse -continue Methadone 35mg daily ([facility] methadone clinic was called and confirmed, dose is 34mg PO QD, they approved giving 35mg as we only have doses in multiples of 5mg # [phone]) Mood Disorders -patient follows regularly with psychiatrist at [facility]mental health clinic across hospital -continue home medications (confirmed with pharmacy): Zoloft 100mg PO Q12H, Seroquel PO 100mg QD, klonopin 0.5mg PO Q12H -denies SI/HI at this time Preventive Care - B12, TSH wnl, follow up Folate - Alpha-1 antiT: Negative (Reports family hx of liver and lung conditions) DVT Prophylaxis -Lovenox 40mg SC Full Code Emergency Contact# [phone] (Sister, Molly Moralez)
--- NOTE | 2018-02-26 12:37 | CP.PCM.DIS ---
Provider - Provider Date of Admission: 02/22/18 11:55 Attending physician: Elda López MD Primary care physician: PMD: Dr. Dennis Consults: Pulmonary, Dr. Carey Time Spent in preparation of Discharge (in minutes): 40 Diagnosis - Discharge Diagnosis (1) COPD exacerbation Status: Acute Comment: Consult Dr. Carey, Pulmonary (2) HIV (human immunodeficiency virus infection) Status: Chronic (3) Hypertension Status: Chronic (4) Substance abuse Status: Chronic (5) Mood disorder Status: Chronic Hospital Course - Lab Results Lab Results: Micro Results 02/22/18 11:00 Blood Blood Culture - Preliminary NO GROWTH AFTER 3 DAYS 02/22/18 10:30 Blood Blood Culture - Preliminary NO GROWTH AFTER 3 DAYS Most Recent Lab Values WBC 8.4 K/uL (4.8-10.8) 02/23/18 06:15 RBC 4.09 Mil/uL (4.40-5.90) L 02/23/18 06:15 Hgb 12.6 g/dL (12.0-18.0) 02/23/18 06:15 Hct 37.2 % (35.0-51.0) 02/23/18 06:15 MCV 91.0 fl (80.0-94.0) 02/23/18 06:15 MCH 30.8 pg (27.0-31.0) 02/23/18 06:15 MCHC 33.9 g/dL (33.0-37.0) 02/23/18 06:15 RDW 15.4 % (11.5-14.5) H 02/23/18 06:15 Plt Count 133 K/uL (130-400) 02/23/18 06:15 MPV 7.6 fl (7.2-11.7) 02/23/18 06:15 Neut % (Auto) 64.9 % (50.0-75.0) 02/23/18 06:15 Lymph % (Auto) 29.0 % (20.0-40.0) 02/23/18 06:15 [place] % (Auto) 5.4 % (0.0-10.0) 02/23/18 06:15 Eos % (Auto) 0.5 % (0.0-4.0) 02/23/18 06:15 Baso % (Auto) 0.2 % (0.0-2.0) 02/23/18 06:15 Neut # (Auto) 5.4 K/uL (1.8-7.0) 02/23/18 06:15 Lymph # (Auto) 2.4 K/uL (1.0-4.3) 02/23/18 06:15 [place] # (Auto) 0.5 K/uL (0.0-0.8) 02/23/18 06:15 Eos # (Auto) 0.0 K/uL (0.0-0.7) 02/23/18 06:15 Baso # (Auto) 0.0 K/uL (0.0-0.2) 02/23/18 06:15 pCO2 43 mm/Hg (35-45) 02/25/18 13:40 pO2 73 mm/Hg (80-100) L 02/25/18 13:40 HCO3 26.5 mmol/L (21-28) 02/25/18 13:40 ABG pH 7.41 (7.35-7.45) 02/25/18 13:40 ABG Total CO2 28.6 mmol/L (22-28) H 02/25/18 13:40 ABG O2 Saturation 95.8 % (95-98) 02/25/18 13:40 ABG O2 Content 17.7 ML/dL (15-23) 02/25/18 13:40 ABG Base Excess 2.2 mmol/L (-2.0-3.0) 02/25/18 13:40 ABG Hemoglobin 13.6 g/dL (11.7-17.4) 02/25/18 13:40 ABG Carboxyhemoglobin 2.1 % (0.5-1.5) H 02/25/18 13:40 POC ABG HHb (Measured) 4.0 % (0.0-5.0) 02/25/18 13:40 ABG Methemoglobin 1.7 % (0.0-3.0) 02/25/18 13:40 ABG O2 Capacity 18.5 mL/dL (16-24) 02/25/18 13:40 [place] Test Yes 02/25/18 13:40 A-a O2 Difference 23.0 mm/Hg 02/25/18 13:40 Hgb O2 Saturation 92.2 % (95.0-98.0) L 02/25/18 13:40 FiO2 21.0 % 02/25/18 13:40 Sodium 140 mmol/l (132-148) 02/23/18 06:15 Potassium 4.2 MMOL/L (3.6-5.0) 02/23/18 06:15 Chloride 101 mmol/L (98-107) 02/23/18 06:15 Carbon Dioxide 29 mmol/L (22-30) 02/23/18 06:15 Anion Gap 14 (10-20) 02/23/18 06:15 BUN 18 mg/dl (9-20) 02/23/18 06:15 Creatinine 0.8 mg/dl (0.8-1.5) 02/23/18 06:15 Est GFR ( Amer) > 60 02/23/18 06:15 Est GFR (Non-Af Amer) > 60 02/23/18 06:15 POC Glucose (mg/dL) 133 mg/dL (65-110) H 02/22/18 17:32 Random Glucose 71 mg/dL (75-110) L 02/23/18 06:15 Calcium 8.4 mg/dL (8.4-10.2) 02/23/18 06:15 Total Bilirubin 0.7 mg/dl (0.2-1.3) 02/23/18 06:15 AST 50 U/L (17-59) 02/23/18 06:15 ALT 26 U/L (21-72) 02/23/18 06:15 Alkaline Phosphatase 108 U/L (38-126) 02/23/18 06:15 Troponin I < 0.0120 ng/mL (0.00-0.120) 02/22/18 10:49 NT-Pro-B Natriuret Pep 159 pg/ml (0-900) 02/22/18 10:49 Total Protein 8.8 G/DL (6.3-8.2) H 02/23/18 06:15 Albumin 3.9 g/dL (3.5-5.0) 02/23/18 06:15 Globulin 4.9 gm/dL (2.2-3.9) H 02/23/18 06:15 Albumin/Globulin Ratio 0.8 (1.0-2.1) L 02/23/18 06:15 Uvvmy-2-Iujggposgng 184 mg/dL (83-199) 02/25/18 04:50 Vitamin B12 670 pg/mL (239-931) 02/26/18 04:55 TSH 3rd Generation 1.05 mIU/ML (0.46-4.68) 02/26/18 04:55 - Hospital Course Hospital Course: This is 57 y/o male with PMH of COPD, asymptomatic HIV (On ART), Hep C (treated) , substance abuse, hypertension, depression and Morbid obesity admitted to [facility] for evaluation and treatment of COPD exacerbation. CXR negative for any acute changes, EKG: NSR with RBBB. Patient was started on steroids and c/w home medications. Dr. Carey, pulmonary was consulted on the case. In hospital, patient failed 6 mins walk test off the oxygen NC and requires oxygen at rest. Patient is taking methadone and following up with Methadone clinic [place]. Patient will be discharge to TCU for further evaluation and treatment. Will consult Dr. Carey, pulmonary for TCU management. - C/w home medications: Albuterol, Klonopin 0.5mg daily, Tivicay 50mg daily, Truvada PO daily, Enalapril 5mg daily, Advair, Montelukast 10mg, Seroquel 100mg , Zoloft 100mg daily, Spiriva, and Methadone 34mg daily (Confirmed with the clinic # [phone]) - New medication: C/w MethylPred 40mg Q6H daily Discharge Exam - Head Exam Head Exam: NORMAL INSPECTION - Eye Exam Eye Exam: EOMI, Normal appearance, PERRL Pupil Exam: NORMAL ACCOMODATION - ENT Exam ENT Exam: Mucous Membranes Moist - Neck Exam Neck exam: Full Rom - Respiratory Exam Respiratory Exam: Decreased Breath Sounds, Prolonged Expiratory Phase, Rales, Wheezes, NORMAL BREATHING PATTERN. absent: Accessory Muscle Use, Chest Wall Tenderness - Cardiovascular Exam Cardiovascular Exam: REGULAR RHYTHM, +S1, +S2 - GI/Abdominal Exam GI & Abdominal Exam: Normal Bowel Sounds, Soft. absent: Tenderness Additional comments: Obese abdomen - Back Exam Back exam: absent: CVA tenderness (L), CVA tenderness (R) - Neurological Exam Neurological exam: Alert, CN II-XII Intact, Oriented x3, Reflexes Normal - Psychiatric Exam Psychiatric exam: Normal Affect - Skin Additional comments: Chronic diffuse rash with spider angiomas Discharge Plan - Follow Up Plan Condition: STABLE Disposition: REHAB FACILITY/REHAB UNIT Instructions: Quitting Smoking, Exacerbation of COPD (DC) Additional Instructions: - Transferred to TCU - C/w home medications and current management - PT/OT daily Referrals: Chad Carey MD [Staff Provider] -
--- NOTE | 2018-02-26 13:31 | CP.PCM.PN ---
Subjective - Date & Time of Evaluation Date of Evaluation: 02/26/18 Time of Evaluation: 12:20 - Subjective Subjective: F/U COPD/Asthma Ex. Pt Pt breathing well, no SOB at rest, KHAN improved with O2. Objective - Vital Signs/Intake and Output Vital Signs (last 24 hours): Temp Pulse Resp BP Pulse Ox 97.7 F 84 18 154/75 H 93 L 02/26/18 12:18 02/26/18 12:18 02/26/18 12:18 02/26/18 12:18 02/26/18 12:18 - Medications Medications: Current Medications Acetylcysteine (Acetylcysteine 20%) 2 ml INH RBID [facility] Last Admin: 02/26/18 08:08 Dose: 2 ml Albuterol Sulfate (Albuterol 0.083% Inhal Jennifer (2.5 Mg/3 Ml) Ud) 2.5 mg INH RQ4 [facility] Last Admin: 02/26/18 11:30 Dose: 2.5 mg Clonazepam (Klonopin) 0.5 mg PO Q12 [facility] Last Admin: 02/26/18 08:40 Dose: 0.5 mg Dolutegravir Sodium (Tivicay) 50 mg PO HS [facility] PRN Reason: Protocol Last Admin: 02/25/18 22:02 Dose: 50 mg Emtricitabine/Tenofovir (Truvada 200 Mg-300 Mg) 1 tab PO HS [facility] PRN Reason: Protocol Last Admin: 02/25/18 22:03 Dose: 1 tab Enalapril Maleate (Vasotec) 5 mg PO HS [facility] Last Admin: 02/25/18 22:12 Dose: Not Given Enoxaparin Sodium (Lovenox) 40 mg SC DAILY [facility] PRN Reason: Protocol Last Admin: 02/26/18 08:41 Dose: 40 mg Famotidine (Pepcid) 20 mg PO DAILY [facility] Last Admin: 02/26/18 08:45 Dose: 20 mg Methadone HCl (Methadone) 30 mg PO DAILY [facility] Last Admin: 02/26/18 08:39 Dose: 30 mg Methadone HCl (Methadone) 5 mg PO DAILY [facility] Last Admin: 02/26/18 08:40 Dose: 5 mg Methylprednisolone (Solu-Medrol) 40 mg IVP Q8 [facility] Last Admin: 02/26/18 08:42 Dose: 40 mg Montelukast Sodium (Singulair) 10 mg PO HS [facility] Last Admin: 02/25/18 22:01 Dose: 10 mg Nicotine (Nicoderm Cq) 1 patch TD DAILY [facility] Last Admin: 02/26/18 08:43 Dose: 1 patch Quetiapine Fumarate (Seroquel) 100 mg PO HS [facility] Last Admin: 02/25/18 22:01 Dose: 100 mg Fluticasone/Salmeterol (Advair Diskus 250/50) 1 puff IH Q12 [facility] Last Admin: 02/26/18 08:41 Dose: 1 puff Sertraline HCl (Zoloft) 100 mg PO Q12 [facility] Last Admin: 02/26/18 08:42 Dose: 100 mg Tiotropium [place] (Spiriva) 18 mcg IH DAILY [facility] Last Admin: 02/26/18 08:42 Dose: 18 mcg - Labs Labs: 02/23/18 06:15 02/23/18 06:15 - Constitutional Appears: No Acute Distress - Head Exam Head Exam: NORMAL INSPECTION - Eye Exam Eye Exam: PERRL - ENT Exam ENT Exam: Normal Oropharynx - Neck Exam Neck Exam: Normal Inspection - Respiratory Exam Respiratory Exam: Decreased Breath Sounds (mild b/l) - Cardiovascular Exam Cardiovascular Exam: REGULAR RHYTHM - GI/Abdominal Exam GI & Abdominal Exam: Soft, Normal Bowel Sounds Additional comments: Obese - Extremities Exam Extremities Exam: Pedal Edema (b/l) - Back Exam Back Exam: NORMAL INSPECTION - Neurological Exam Neurological Exam: Alert, Oriented x3. absent: Motor Sensory Deficit - Psychiatric Exam Psychiatric exam: Normal Mood - Skin Skin Exam: Rash, Warm Assessment and Plan (1) Acute exacerbation of COPD with asthma Status: Acute (2) HIV (human immunodeficiency virus infection) Status: Acute - Assessment and Plan (Free Text) Plan: Pt improved, Pulmonary cleared to be transferred to TCU, see MAR.
[2018-02-26 13:33] LABS: FOLATE 11.6 ng/mL
[2018-02-26 16:07] VITALS: BP 169/95; PULSE 91; TEMP 98.1
[2018-03-01 10:27] VITALS: O2SAT 96
--- NOTE | 2018-03-06 13:59 | PQF ---
PROVIDER RESPONSE TEXT: Severity of asthma undetermined. REVIEWER QUERY TEXT: Asthma Specificity and Type Asthma is documented in the Medical Record. Please specify the type and severity of asthma and indic ate if this is associated with exacerbation or status asthmaticus. Such as: -- Mild intermittent -- Mild persistent -- Moderate persistent -- Severe persistent 02/25 Pulmonary consult: Assessment :(1) Acute exacerbation of COPD with asthma Status: Acute Priority: High Plan: Continue NC 2 L/M, Solu-Medrol, Albuterol, Advair, Spiriva and rest of Tx. The patient's Clinical Indicators include: xx Query created by: Jessica Mccallum on 02/26/2018 8:00 AM Electronically signed by: Chad Carey MD 03/06/2018 1:55 PM
== END 2018-02-26 16:34 | DRG 191 ==
LOC: H.ER 10:06 → H.ERHOLD 11:55 → H.TEL 18:48
PROVIDERS: ADMIT Family Medicine; ATTEND Family Medicine
PROC: 3E0F73Z Introduction of Anti-inflammatory into Respiratory Tract, Via Natural or Artificial Opening (ICD-10-PCS; principal; 2018-02-22)
PROC: 3E0F7GC Introduction of Other Therapeutic Substance into Respiratory Tract, Via Natural or Artificial Opening (ICD-10-PCS; 2018-02-22)
DX: J44.1 Chronic obstructive pulmonary disease with (acute) exacerbation (principal); Z68.41 Body mass index [BMI] 40.0-44.9, adult; E66.01 Morbid (severe) obesity due to excess calories; F11.24 Opioid dependence with opioid-induced mood disorder; Z21 Asymptomatic human immunodeficiency virus [HIV] infection status; I10 Essential (primary) hypertension; F32.9 Major depressive disorder, single episode, unspecified; F41.9 Anxiety disorder, unspecified; F17.210 Nicotine dependence, cigarettes, uncomplicated; Z86.19 Personal history of other infectious and parasitic diseases; Z79.51 Long term (current) use of inhaled steroids

== ENCOUNTER 2018-02-26 13:48 | Inpatient (IN) | payer OTHER, MEDICAID ==
[2018-02-26] MEDS: Acetylcysteine 20% Inhal Soln (4ml) INH SCH (19:29)
[2018-02-26] MEDS: Albuterol 0.083% Inhal Sol (2.5 mg/3 mL) UD INH SCH ×2 (19:29→23:15)
[2018-02-26 19:54] VITALS: RESP 20
[2018-02-26] MEDS: MethylPREDNISolone 40 mg Vial IVP SCH (21:31)
[2018-02-26] MEDS: Emtricitabine-Tenofovir 200 mg-300 mg Tab PO SCH (21:32)
[2018-02-26] MEDS: Patient's Own Med (Budesonide/Formoterol Fumarate [Symbicort 160-4.5 Mcg Inhaler] 2 PUFF) IH SCH (22:00)
[2018-02-27] MEDS: Albuterol 0.083% Inhal Sol (2.5 mg/3 mL) UD INH SCH ×5 (05:16→19:41)
[2018-02-27 06:38] LABS: BASO % 0.2 % (0.0-2.0); HEMOGLOBIN 12.7 g/dL (12.0-18.0); LYMPH # 1.3 K/uL (1.0-4.3); LYMPH % 17.6 % (20.0-40.0); MEAN CELL VOLUME 92.9 fl (80.0-94.0); MEAN CORPUSCULAR HGB CONC 33.4 g/dL (33.0-37.0); MEAN PLATELET VOLUME 7.7 fl (7.2-11.7); MONO # 0.5 K/uL (0.0-0.8); MONO % 6.1 % (0.0-10.0); NEUT # 5.8 K/uL (1.8-7.0); NEUT % 76.1 % (50.0-75.0); NRBC % 0.1 % (0.0-0.0); RBC 4.1 Mil/uL (4.40-5.90); RED CELL DISTRIBUTION WIDTH 15.7 % (11.5-14.5); WHITE BLOOD COUNT 7.6 K/uL (4.8-10.8)
[2018-02-27 07:19] LABS: BLOOD UREA NITROGEN 26 mg/dl (9-20); CALCIUM 8.9 mg/dL (8.4-10.2); GFR AFRICAN-AMERICAN > 60; GFR NON-AFRICAN AMERICAN > 60
[2018-02-27] MEDS: Acetylcysteine 20% Inhal Soln (4ml) INH SCH ×2 (07:19→19:42)
--- NOTE | 2018-02-27 07:38 | CP.PCM.HP ---
History of Present Illness - History of Present Illness History of Present Illness: This is 57 y/o male with PMH of COPD, asymptomatic HIV (On ART), Hep C (treated) , substance abuse, hypertension, depression and Morbid obesity admitted to TCU s /p hospital discharge. Patient was treated for COPD exacerbation in the hospital , discharged to TCU for further evaluation and treatment after not doing well w/ o Oxygen on 6 mins walk test. Patient is still c/o dyspnea (w/o oxygen) and cough associated with runny nose, occasional dizziness and palpitations, denies any fever, chills, recent weight changes, travel, or sick contact. Patient reports occasional nonbloody/nonbilious vomiting. Patient is taking methadone and following up with Methadone clinic in [place]. Dr. Carey was consulted during hospital stay and will follow up in TCU. PMD: Dr. Dennis PMH: COPD, asymptomatic HIV (On ART), Hep C (treated), substance abuse, hypertension and Morbid obesity PSH: Appendectomy Allg: NKDA Meds: Albuterol, Klonopin 0.5mg daily, Tivicay 50mg daily, Truvada PO daily, Enalapril 5mg daily, Advair, Montelukast 10mg, Seroquel 100mg, Zoloft 100mg daily, Spiriva, and Methadone 34mg daily (Confirmed with the clinic # ) FH: Mother, decreased, hx with COPD. Father with multiple strokes, decreased SH: Patient lives with a girlfriend, Reports good family support: Brothers and sisters live in same town. Denies any recent use of alcohol or illicit drug use. smokes 2 cig/day currently ROS: As per HPI Present on Admission - Present on Admission Any Indicators Present on Admission: No Past Patient History - Past Medical History & Family History Past Medical History?: Yes - Past Social History Smoking Status: as per pt - CARDIAC Hx Cardiac Disorders: Yes Hx Hypertension: Yes - PULMONARY Hx Respiratory Disorders: Yes Hx Asthma: Yes Hx Chronic Obstructive Pulmonary Disease (COPD): Yes - HEENT Hx HEENT Problems: No - RENAL Hx Chronic Kidney Disease: No - ENDOCRINE/METABOLIC Hx Endocrine Disorders: Yes Hx Diabetes Mellitus Type 2: Yes (hx, not current) - HEMATOLOGICAL/ONCOLOGICAL Hx AIDS: Yes - INTEGUMENTARY Hx Dermatological Problems: Yes Other/Comment: rashes - MUSCULOSKELETAL/RHEUMATOLOGICAL Hx Musculoskeletal Disorders: Yes (generalized body pain.) Hx Falls: Yes - GASTROINTESTINAL Hx Gastrointestinal Disorders: No - GENITOURINARY/GYNECOLOGICAL Hx Genitourinary Disorders: No - PSYCHIATRIC Hx Psychophysiologic Disorder: Yes Hx Anxiety: Yes Hx Depression: Yes Hx Substance Use: Yes - SURGICAL HISTORY Hx Surgeries: Yes Hx Appendectomy: Yes - ANESTHESIA Hx Anesthesia: Yes Hx Anesthesia Reactions: No Meds Allergies/Adverse Reactions: Allergies Allergy/AdvReac Type Severity Reaction Status Date / Time No Known Allergies Allergy Verified 02/26/18 14:41 Physical Exam - Constitutional Appears: No Acute Distress - Head Exam Head Exam: NORMAL INSPECTION - Eye Exam Eye Exam: EOMI, Normal appearance, PERRL Pupil Exam: NORMAL ACCOMODATION - ENT Exam ENT Exam: Mucous Membranes Moist - Neck Exam Neck exam: Positive for: Normal Inspection - Respiratory Exam Respiratory Exam: Decreased Breath Sounds, Rhonchi. absent: Accessory Muscle Use, Chest Wall Tenderness, Wheezes - Cardiovascular Exam Cardiovascular Exam: REGULAR RHYTHM, +S1, +S2 - GI/Abdominal Exam GI & Abdominal Exam: Normal Bowel Sounds Additional comments: Obese abdomen - Extremities Exam Extremities exam: Positive for: normal capillary refill, normal inspection, pedal pulses present - Back Exam Back exam: NORMAL INSPECTION. absent: CVA tenderness (L), CVA tenderness (R) - Neurological Exam Neurological exam: Alert, CN II-XII Intact, Oriented x3 - Psychiatric Exam Psychiatric exam: Normal Affect - Skin Additional comments: Chronic diffuse body rashes, spider angiomas appreciated Results - Vital Signs Recent Vital Signs: Last Vital Signs Temp 97.5 F L 02/26/18 19:53 Pulse 90 02/26/18 19:53 Resp 20 02/26/18 19:53 BP 144/71 02/26/18 19:53 Pulse Ox 94 L 02/26/18 19:53 - Labs Result Diagrams: 02/27/18 05:45 02/27/18 05:45 Labs: Laboratory Results - last 24 hr 02/27/18 02/27/18 05:45 05:45 WBC 7.6 RBC 4.10 L Hgb 12.7 Hct 38.1 MCV 92.9 MCH 31.0 MCHC 33.4 RDW 15.7 H Plt Count 118 L MPV 7.7 Neut % (Auto) 76.1 H Lymph % (Auto) 17.6 L [place] % (Auto) 6.1 Eos % (Auto) 0.0 Baso % (Auto) 0.2 Neut # (Auto) 5.8 Lymph # (Auto) 1.3 [place] # (Auto) 0.5 Eos # (Auto) 0.0 Baso # (Auto) 0.0 Sodium 139 Potassium 4.2 Chloride 105 Carbon Dioxide 27 Anion Gap 11 BUN 26 H Creatinine 0.9 Est GFR ( Amer) > 60 Est GFR (Non-Af Amer) > 60 Random Glucose 142 H Calcium 8.9 Assessment & Plan - Assessment and Plan (Free Text) Assessment: A/P: 57 yr old M admitted to TCU fpr further evaluation and treatment after hospitalization for COPD exacerbation with PMHx of COPD, asymptomatic HIV (on ART), Hx Hep C (treated), substance abuse, hypertension, depression and morbid obesity. COPD, s/p acute exacerbation -chronic -Pulmonology consult, Dr. Carey, will follow up further recommendations -continue albuterol 0.083% INH Q4, Methylprednisolone 40mg IVP Q12H, Mucomyst 2ml INH RBID, -continue home medications: Advair 1 puff IH Q12, Spiriva 18mcg IH daily, Montelukast 10mg PO QHS -2L supplemental O2 via nasal cannula to keep O2 sat above 92% -c/w TCU management Human immunodeficiency virus (HIV) -Chronic, Asymptomatic -01/04/18: CD4 count 672, viral load < 20, -continue home medications: Tivicay 50mg daily, Truvada PO daily, compliant with medications (Pharmacy was called and confirmed) -Dr. Dennis is aware History of Hepatitis C -Patient was treated in past, last treatment was 1 year ago -no further workup required Hypertension -Chronic, uncontrolled -patient has elevated BP on occasion, will consider increasing vasotec -continue home medication: vasotec 5mg PO daily -monitor BP History of substance abuse -History of percocet and heroin abuse -continue Methadone 35mg daily ([facility] methadone clinic was called and confirmed, dose is 34mg PO QD, they approved giving 35mg as we only have doses in multiples of 5mg # [phone]) Mood Disorders -patient follows regularly with psychiatrist at [facility]-mental health clinic across hospital -continue home medications (confirmed with pharmacy): Zoloft 100mg PO Q12H, Seroquel PO 100mg QD, klonopin 0.5mg PO Q12H -denies SI/HI at this time Preventive Care - B12, TSH wnl, follow up Folate - Alpha-1 antiT: Negative (Reports family hx of liver and lung conditions) DVT Prophylaxis -Lovenox 40mg SC Full Code Emergency Contact# [phone] (Sister, Molly Moralez)
[2018-02-27] MEDS: Patient's Own Med (Budesonide/Formoterol Fumarate [Symbicort 160-4.5 Mcg Inhaler] 2 PUFF) IH SCH ×2 (08:59→21:40)
[2018-02-27] MEDS: Enoxaparin 40 mg Syringe SC SCH (09:00)
[2018-02-27] MEDS: MethylPREDNISolone 40 mg Vial IVP SCH ×2 (09:01→21:43)
[2018-02-27] MEDS: Tiotropium 18 mcg Cap For Inhalation IH SCH (09:02)
--- NOTE | 2018-02-27 12:16 | CP.PCM.CON ---
History of Present Illness - History of Present Illness History of Present Illness: Pulmonary consult in TCU for a 57 y/o M, with previous admission to Telemetry floor on 02/22/18 due to COPD Exacerbation associated to productive cough. Pt with morbid obesity BMI 43.9, unsteady gait, to continue Tx and PT. Patient continue with SOB , KHAN without O2 Hx of COPD- smoker, Morbid Obesity, asymptomatic HIV( on ART), Hep C treated, Hx of Percocet and Heroin abuse on Methadone, HTN On 02/25/18, Pt was evaluated by Physical Therapist and after 6 mins walk test , Sat drop to 88% at RA on exertion and Pt start with coughing and having weak gait. Test was not completed as per Therapist , Pt was at risk of fall and Pt was returned to bed. Worsening symptoms: Morbid obesity BMI 43.9, unsteady gait, current smoker along to others chronic medical conditions Emphysema, HIV, Drug abuse. Aggravated factor: Movements/exercise. Pt denied: Fever, chills, CP, palpitations, v/n/d, abdominal pain, urinary symptoms, sick contact, recent travel out of [facility]. Review of Systems - Constitutional Constitutional: Other (morbid obesity) - EENT Eyes: Other (negative) Ears: Other (negative) Nose/Mouth/Throat: Other (negative) - Cardiovascular Cardiovascular: Orthopnea - Respiratory Respiratory: Cough, Dyspnea, Dyspnea on Exertion - Gastrointestinal Gastrointestinal: Other (negative) - Genitourinary Genitourinary: Other (negative) - Musculoskeletal Musculoskeletal: Other (generalized pain) - Integumentary Integumentary: Rash (chronic multiples sites) - Neurological Neurological: Weakness - Psychiatric Psychiatric: Anxiety, Depression - Endocrine Endocrine: Other (morbid obesity) - Hematologic/Lymphatic Hematologic: Other (negative) Past Patient History - Past Medical History & Family History Past Medical History?: Yes Pertinent Family History: Mother: COPD Father: Multiple strokes. - Past Social History Smoking Status: Light Smoker < 10 Cigarettes Daily Drugs: Other (Hx IV drug abuse) Home Situation {Lives}: Other (girlfriend) - CARDIAC Hx Cardiac Disorders: Yes Hx Hypertension: Yes - PULMONARY Hx Respiratory Disorders: Yes Hx Asthma: Yes Hx Chronic Obstructive Pulmonary Disease (COPD): Yes - HEENT Hx HEENT Problems: No - RENAL Hx Chronic Kidney Disease: No - ENDOCRINE/METABOLIC Hx Endocrine Disorders: Yes Hx Diabetes Mellitus Type 2: Yes (hx, not current) - HEMATOLOGICAL/ONCOLOGICAL Hx AIDS: Yes - INTEGUMENTARY Hx Dermatological Problems: Yes Other/Comment: rashes - MUSCULOSKELETAL/RHEUMATOLOGICAL Hx Musculoskeletal Disorders: Yes (generalized body pain.) Hx Falls: Yes - GASTROINTESTINAL Hx Gastrointestinal Disorders: No - GENITOURINARY/GYNECOLOGICAL Hx Genitourinary Disorders: No - PSYCHIATRIC Hx Psychophysiologic Disorder: Yes Hx Anxiety: Yes Hx Depression: Yes Hx Substance Use: Yes - SURGICAL HISTORY Hx Surgeries: Yes Hx Appendectomy: Yes - ANESTHESIA Hx Anesthesia: Yes Hx Anesthesia Reactions: No Meds Allergies/Adverse Reactions: Allergies Allergy/AdvReac Type Severity Reaction Status Date / Time No Known Allergies Allergy Verified 02/26/18 14:41 - Medications Medications: Current Medications Acetylcysteine (Acetylcysteine 20%) 2 ml INH RBID [facility] Last Admin: 02/27/18 07:19 Dose: 2 ml Albuterol Sulfate (Albuterol 0.083% Inhal Jennifer (2.5 Mg/3 Ml) Ud) 2.5 mg INH RQ4 [facility] Last Admin: 02/27/18 11:48 Dose: 2.5 mg Clonazepam (Klonopin) 0.5 mg PO Q12 [facility] Last Admin: 02/27/18 09:00 Dose: 0.5 mg Dolutegravir Sodium (Tivicay) 50 mg PO HS [facility] PRN Reason: Protocol Last Admin: 02/26/18 21:31 Dose: 50 mg Emtricitabine/Tenofovir (Truvada 200 Mg-300 Mg) 1 tab PO HS [facility] PRN Reason: Protocol Last Admin: 02/26/18 21:32 Dose: 1 tab Enalapril Maleate (Vasotec) 5 mg PO HS [facility] Last Admin: 02/26/18 21:59 Dose: 5 mg Enoxaparin Sodium (Lovenox) 40 mg SC DAILY [facility] PRN Reason: Protocol Last Admin: 02/27/18 09:00 Dose: 40 mg Home Med (Budesonide/Formoterol Fumarate [Symbicort 160-4.5 Mcg Inhaler]) 2 puff IH Q12 [facility] Last Admin: 02/27/18 08:59 Dose: Not Given Methadone HCl (Methadone) 5 mg PO DAILY [facility] Last Admin: 02/27/18 09:01 Dose: 5 mg Methadone HCl (Methadone) 30 mg PO DAILY [facility] Last Admin: 02/27/18 09:05 Dose: 30 mg Methylprednisolone (Solu-Medrol) 40 mg IVP Q12 [facility] Last Admin: 02/27/18 09:01 Dose: 40 mg Montelukast Sodium (Singulair) 10 mg PO [facility] Last Admin: 02/26/18 21:32 Dose: 10 mg Nicotine (Nicoderm Cq) 1 patch TD DAILY [facility] Last Admin: 02/27/18 09:07 Dose: 1 patch Quetiapine Fumarate (Seroquel) 100 mg PO HS [facility] Last Admin: 02/26/18 21:31 Dose: 100 mg Sertraline HCl (Zoloft) 100 mg PO Q12 [facility] Last Admin: 02/27/18 09:01 Dose: 100 mg Tiotropium [place] (Spiriva) 18 mcg IH DAILY [facility] Last Admin: 02/27/18 09:02 Dose: 18 mcg Physical Exam - Constitutional Appears: Chronically Ill - Head Exam Head Exam: NORMAL INSPECTION - Eye Exam Eye Exam: PERRL - ENT Exam ENT Exam: Normal Exam - Neck Exam Neck exam: Positive for: Normal Inspection - Respiratory Exam Respiratory Exam: Decreased Breath Sounds (at bases), Rhonchi (scattered at bases) - Cardiovascular Exam Cardiovascular Exam: REGULAR RHYTHM - GI/Abdominal Exam GI & Abdominal Exam: Normal Bowel Sounds, Soft Additional comments: Obese - Extremities Exam Extremities exam: Positive for: pedal edema (b/l), pedal pulses present - Back Exam Back exam: NORMAL INSPECTION - Neurological Exam Neurological exam: Alert, Oriented x3 Additional comments: No motor/sensory deficit - Psychiatric Exam Psychiatric exam: Normal Mood - Skin Skin Exam: Rash, Warm Results - Vital Signs Recent Vital Signs: Last Vital Signs Temp 97.7 F 02/27/18 08:24 Pulse 63 02/27/18 08:24 Resp 20 02/27/18 08:24 BP 135/99 H 02/27/18 08:24 Pulse Ox 96 02/27/18 08:24 reviewed Enoc - Labs Result Diagrams: 02/27/18 05:45 02/27/18 05:45 Labs: Laboratory Results - last 24 hr 02/27/18 02/27/18 05:45 05:45 WBC 7.6 RBC 4.10 L Hgb 12.7 Hct 38.1 MCV 92.9 MCH 31.0 MCHC 33.4 RDW 15.7 H Plt Count 118 L MPV 7.7 Neut % (Auto) 76.1 H Lymph % (Auto) 17.6 L [place] % (Auto) 6.1 Eos % (Auto) 0.0 Baso % (Auto) 0.2 Neut # (Auto) 5.8 Lymph # (Auto) 1.3 [place] # (Auto) 0.5 Eos # (Auto) 0.0 Baso # (Auto) 0.0 Sodium 139 Potassium 4.2 Chloride 105 Carbon Dioxide 27 Anion Gap 11 BUN 26 H Creatinine 0.9 Est GFR ( Amer) > 60 Est GFR (Non-Af Amer) > 60 Random Glucose 142 H Calcium 8.9 reviewed J.P. Assessment & Plan (1) COPD exacerbation Status: Acute (2) HIV (human immunodeficiency virus infection) Status: Acute Priority: High - Assessment and Plan (Free Text) Assessment: Pulse ox reads 96% on O2 in AM today. Continue O2 NC 2 L/M, Solu-Medrol, Albuterol, Spiriva, Singulair, add Advair, 6 min walk test RA today, Venous Dopler L/E, CT Chest, PNG out Patient - Date & Time Date: 02/27/18 Time: 12:10
[2018-02-27] MEDS: Fluticasone-Salmeterol 500-50mcg Diskus IH SCH (21:39)
[2018-02-27] MEDS: Emtricitabine-Tenofovir 200 mg-300 mg Tab PO SCH (21:43)
[2018-02-28] MEDS: Albuterol 0.083% Inhal Sol (2.5 mg/3 mL) UD INH SCH ×7 (00:09→23:27)
[2018-02-28] MEDS: Acetylcysteine 20% Inhal Soln (4ml) INH SCH ×2 (07:16→19:24)
[2018-02-28] MEDS: Fluticasone-Salmeterol 500-50mcg Diskus IH SCH ×2 (08:55→22:24)
[2018-02-28] MEDS: Enoxaparin 40 mg Syringe SC SCH (08:57)
[2018-02-28] MEDS: Patient's Own Med (Budesonide/Formoterol Fumarate [Symbicort 160-4.5 Mcg Inhaler] 2 PUFF) IH SCH ×2 (08:57→22:28)
[2018-02-28] MEDS: Tiotropium 18 mcg Cap For Inhalation IH SCH (08:59)
[2018-02-28] MEDS: MethylPREDNISolone 40 mg Vial IVP SCH ×2 (08:59→22:25)
--- NOTE | 2018-02-28 15:46 | CP.PCM.PN ---
Subjective - Date & Time of Evaluation Date of Evaluation: 02/28/18 Time of Evaluation: 12:50 - Subjective Subjective: F/U COPD/Asthma no SOB at rest, KHAN , using O2 NC Objective - Vital Signs/Intake and Output Vital Signs (last 24 hours): Temp Pulse Resp BP Pulse Ox 97.2 F L 65 20 134/85 94 L 02/28/18 08:13 02/28/18 08:13 02/28/18 08:13 02/28/18 08:13 02/28/18 09:15 - Medications Medications: Current Medications Acetylcysteine (Acetylcysteine 20%) 2 ml INH RBID [facility] Last Admin: 02/28/18 07:16 Dose: 2 ml Albuterol Sulfate (Albuterol 0.083% Inhal Jennifer (2.5 Mg/3 Ml) Ud) 2.5 mg INH RQ4 [facility] Last Admin: 02/28/18 15:22 Dose: 2.5 mg Clonazepam (Klonopin) 0.5 mg PO Q12 [facility] Last Admin: 02/28/18 08:57 Dose: 0.5 mg Dolutegravir Sodium (Tivicay) 50 mg PO HS [facility] PRN Reason: Protocol Last Admin: 02/27/18 21:43 Dose: 50 mg Emtricitabine/Tenofovir (Truvada 200 Mg-300 Mg) 1 tab PO HS [facility] PRN Reason: Protocol Last Admin: 02/27/18 21:43 Dose: 1 tab Enalapril Maleate (Vasotec) 5 mg PO HS [facility] Last Admin: 02/28/18 00:17 Dose: 5 mg Enoxaparin Sodium (Lovenox) 40 mg SC DAILY [facility] PRN Reason: Protocol Last Admin: 02/28/18 08:57 Dose: 40 mg Home Med (Budesonide/Formoterol Fumarate [Symbicort 160-4.5 Mcg Inhaler]) 2 puff IH Q12 [facility] Last Admin: 02/28/18 08:57 Dose: Not Given Ibuprofen (Motrin Tab) 600 mg PO Q6 PRN PRN Reason: Pain, moderate (4-7) Methadone HCl (Methadone) 5 mg PO DAILY [facility] Last Admin: 02/28/18 08:58 Dose: 5 mg Methadone HCl (Methadone) 30 mg PO DAILY [facility] Last Admin: 02/28/18 08:58 Dose: 30 mg Methylprednisolone (Solu-Medrol) 40 mg IVP Q12 [facility] Last Admin: 02/28/18 08:59 Dose: 40 mg Montelukast Sodium (Singulair) 10 mg PO HS [facility] Last Admin: 02/27/18 21:49 Dose: 10 mg Nicotine (Nicoderm Cq) 1 patch TD DAILY [facility] Last Admin: 02/28/18 08:58 Dose: 1 patch Quetiapine Fumarate (Seroquel) 100 mg PO HS [facility] Last Admin: 02/27/18 21:41 Dose: 100 mg Fluticasone/Salmeterol (Advair Diskus 500/50) 1 puff IH Q12 [facility] Last Admin: 02/28/18 08:55 Dose: 1 puff Sertraline HCl (Zoloft) 100 mg PO Q12 [facility] Last Admin: 02/28/18 08:59 Dose: 100 mg Tiotropium [place] (Spiriva) 18 mcg IH DAILY [facility] Last Admin: 02/28/18 08:59 Dose: 18 mcg - Labs Labs: 02/27/18 05:45 02/27/18 05:45 - Constitutional Appears: Chronically Ill - Head Exam Head Exam: NORMAL INSPECTION - Eye Exam Eye Exam: PERRL - ENT Exam ENT Exam: Normal Exam - Neck Exam Neck Exam: Normal Inspection - Respiratory Exam Respiratory Exam: Decreased Breath Sounds (at bases), Rhonchi (scattered) - Cardiovascular Exam Cardiovascular Exam: REGULAR RHYTHM - GI/Abdominal Exam GI & Abdominal Exam: Soft, Normal Bowel Sounds Additional comments: Obese - Extremities Exam Extremities Exam: Pedal Edema (b/l) - Back Exam Back Exam: NORMAL INSPECTION - Neurological Exam Neurological Exam: Alert, Oriented x3. absent: Motor Sensory Deficit - Psychiatric Exam Psychiatric exam: Normal Mood - Skin Skin Exam: Rash, Warm Assessment and Plan (1) COPD exacerbation Status: Acute (2) HIV (human immunodeficiency virus infection) Status: Acute - Assessment and Plan (Free Text) Plan: continue O2 NC, DuoNeb, Mucomyst, SoluMedrol, Advair and rest of Tx
[2018-02-28] MEDS: Emtricitabine-Tenofovir 200 mg-300 mg Tab PO SCH (22:30)
[2018-03-01] MEDS: Albuterol 0.083% Inhal Sol (2.5 mg/3 mL) UD INH SCH ×6 (03:54→23:01)
[2018-03-01] MEDS: Acetylcysteine 20% Inhal Soln (4ml) INH SCH ×2 (07:18→19:31)
[2018-03-01] MEDS: Patient's Own Med (Budesonide/Formoterol Fumarate [Symbicort 160-4.5 Mcg Inhaler] 2 PUFF) IH SCH (09:36)
[2018-03-01] MEDS: Enoxaparin 40 mg Syringe SC SCH (09:42)
[2018-03-01] MEDS: MethylPREDNISolone 40 mg Vial IVP SCH (09:43)
[2018-03-01] MEDS: Tiotropium 18 mcg Cap For Inhalation IH SCH (09:44)
[2018-03-01] MEDS: Fluticasone-Salmeterol 500-50mcg Diskus IH SCH ×2 (09:44→22:37)
--- NOTE | 2018-03-01 13:03 | CP.PCM.PN ---
Subjective - Date & Time of Evaluation Date of Evaluation: 03/01/18 Time of Evaluation: 10:15 - Subjective Subjective: F/U COPD Exacerbation. Breathing better, occasional cough Objective - Vital Signs/Intake and Output Vital Signs (last 24 hours): Temp Pulse Resp BP Pulse Ox 97.2 F L 66 20 128/70 95 03/01/18 08:47 03/01/18 08:47 03/01/18 08:47 03/01/18 08:47 03/01/18 08:47 - Medications Medications: Current Medications Acetylcysteine (Acetylcysteine 20%) 2 ml INH RBID [facility] Last Admin: 03/01/18 07:18 Dose: Not Given Albuterol Sulfate (Albuterol 0.083% Inhal Jennifer (2.5 Mg/3 Ml) Ud) 2.5 mg INH RQ4 [facility] Last Admin: 03/01/18 11:08 Dose: Not Given Clonazepam (Klonopin) 0.5 mg PO Q12 [facility] Last Admin: 03/01/18 09:42 Dose: 0.5 mg Dolutegravir Sodium (Tivicay) 50 mg PO HS [facility] PRN Reason: Protocol Last Admin: 02/28/18 22:25 Dose: 50 mg Emtricitabine/Tenofovir (Truvada 200 Mg-300 Mg) 1 tab PO HS [facility] PRN Reason: Protocol Last Admin: 02/28/18 22:30 Dose: 1 tab Enalapril Maleate (Vasotec) 5 mg PO HS [facility] Last Admin: 02/28/18 22:25 Dose: 5 mg Enoxaparin Sodium (Lovenox) 40 mg SC DAILY [facility] PRN Reason: Protocol Last Admin: 03/01/18 09:42 Dose: 40 mg Famotidine (Pepcid) 20 mg PO DAILY [facility] Last Admin: 03/01/18 11:01 Dose: 20 mg Ibuprofen (Motrin Tab) 600 mg PO Q6 PRN PRN Reason: Pain, moderate (4-7) Methadone HCl (Methadone) 5 mg PO DAILY [facility] Last Admin: 03/01/18 09:42 Dose: 5 mg Methadone HCl (Methadone) 30 mg PO DAILY [facility] Last Admin: 03/01/18 09:42 Dose: 30 mg Methylprednisolone (Solu-Medrol) 40 mg IVP DAILY [facility] Montelukast Sodium (Singulair) 10 mg PO HS [facility] Last Admin: 02/28/18 22:30 Dose: 10 mg Nicotine (Nicoderm Cq) 1 patch TD DAILY [facility] Last Admin: 03/01/18 09:43 Dose: 1 patch Quetiapine Fumarate (Seroquel) 100 mg PO HS [facility] Last Admin: 02/28/18 22:28 Dose: 100 mg Fluticasone/Salmeterol (Advair Diskus 500/50) 1 puff IH Q12 [facility] Last Admin: 03/01/18 09:44 Dose: 1 puff Sertraline HCl (Zoloft) 100 mg PO Q12 [facility] Last Admin: 03/01/18 09:43 Dose: 100 mg Tiotropium [place] (Spiriva) 18 mcg IH DAILY [facility] Last Admin: 03/01/18 09:44 Dose: 18 mcg - Labs Labs: 02/27/18 05:45 02/27/18 05:45 - Constitutional Appears: Chronically Ill - Head Exam Head Exam: NORMAL INSPECTION - Eye Exam Eye Exam: PERRL - ENT Exam ENT Exam: Normal Exam - Neck Exam Neck Exam: Normal Inspection - Respiratory Exam Respiratory Exam: Decreased Breath Sounds (at bases), Wheezes (few scattered) - Cardiovascular Exam Cardiovascular Exam: REGULAR RHYTHM - GI/Abdominal Exam GI & Abdominal Exam: Soft, Normal Bowel Sounds Additional comments: Obese - Extremities Exam Extremities Exam: Pedal Edema (b/l) - Back Exam Back Exam: NORMAL INSPECTION - Neurological Exam Neurological Exam: Alert, Oriented x3. absent: Motor Sensory Deficit - Psychiatric Exam Psychiatric exam: Normal Mood - Skin Skin Exam: Rash, Warm Assessment and Plan (1) COPD exacerbation Status: Acute (2) HIV (human immunodeficiency virus infection) Status: Acute - Assessment and Plan (Free Text) Plan: as per PT when patient is moving slowly no SOB using O2 NC, when He try to move fast develop SOB, great difficulty with SOB to go up stairs , continue O2 NC , DuoNeb, Mucomyst , Nicoderm CQ, 6min POx walk desaturation, Patient qualifies for Home O2, and portable O2, also Patient requested a letter directed to Housing Department to move to first floor appt or a building with elevator
--- NOTE | 2018-03-01 13:52 | CP.PCM.PN ---
Subjective - Date & Time of Evaluation Date of Evaluation: 03/01/18 Time of Evaluation: 07:45 - Subjective Subjective: Patient seen and examined this morning at bedside. NAD, patient is having his breakfast, denies any SOB, chest pain, palpitations, fever, diarrhea or urinary symptoms. -Patient reports using Oxygen NC 2L on and off overnight, reports dyspnea on exertion Objective - Vital Signs/Intake and Output Vital Signs (last 24 hours): Temp Pulse Resp BP Pulse Ox 97.2 F L 66 20 128/70 95 03/01/18 08:47 03/01/18 08:47 03/01/18 08:47 03/01/18 08:47 03/01/18 08:47 - Medications Medications: Current Medications Acetylcysteine (Acetylcysteine 20%) 2 ml INH RBID [facility] Last Admin: 03/01/18 07:18 Dose: Not Given Albuterol Sulfate (Albuterol 0.083% Inhal Jennifer (2.5 Mg/3 Ml) Ud) 2.5 mg INH RQ4 [facility] Last Admin: 03/01/18 11:08 Dose: Not Given Clonazepam (Klonopin) 0.5 mg PO Q12 [facility] Last Admin: 03/01/18 09:42 Dose: 0.5 mg Dolutegravir Sodium (Tivicay) 50 mg PO HS [facility] PRN Reason: Protocol Last Admin: 02/28/18 22:25 Dose: 50 mg Emtricitabine/Tenofovir (Truvada 200 Mg-300 Mg) 1 tab PO HS [facility] PRN Reason: Protocol Last Admin: 02/28/18 22:30 Dose: 1 tab Enalapril Maleate (Vasotec) 5 mg PO HS [facility] Last Admin: 02/28/18 22:25 Dose: 5 mg Enoxaparin Sodium (Lovenox) 40 mg SC DAILY [facility] PRN Reason: Protocol Last Admin: 03/01/18 09:42 Dose: 40 mg Famotidine (Pepcid) 20 mg PO DAILY [facility] Last Admin: 03/01/18 11:01 Dose: 20 mg Ibuprofen (Motrin Tab) 600 mg PO Q6 PRN PRN Reason: Pain, moderate (4-7) Methadone HCl (Methadone) 5 mg PO DAILY [facility] Last Admin: 03/01/18 09:42 Dose: 5 mg Methadone HCl (Methadone) 30 mg PO DAILY [facility] Last Admin: 03/01/18 09:42 Dose: 30 mg Methylprednisolone (Solu-Medrol) 40 mg IVP DAILY [facility] Montelukast Sodium (Singulair) 10 mg PO HS [facility] Last Admin: 02/28/18 22:30 Dose: 10 mg Nicotine (Nicoderm Cq) 1 patch TD DAILY [facility] Last Admin: 03/01/18 09:43 Dose: 1 patch Quetiapine Fumarate (Seroquel) 100 mg PO HS [facility] Last Admin: 02/28/18 22:28 Dose: 100 mg Fluticasone/Salmeterol (Advair Diskus 500/50) 1 puff IH Q12 [facility] Last Admin: 03/01/18 09:44 Dose: 1 puff Sertraline HCl (Zoloft) 100 mg PO Q12 [facility] Last Admin: 03/01/18 09:43 Dose: 100 mg Tiotropium [place] (Spiriva) 18 mcg IH DAILY [facility] Last Admin: 03/01/18 09:44 Dose: 18 mcg - Labs Labs: 02/27/18 05:45 02/27/18 05:45 - Constitutional Appears: No Acute Distress - Head Exam Head Exam: NORMAL INSPECTION - Eye Exam Eye Exam: EOMI, Normal appearance, PERRL - ENT Exam ENT Exam: Mucous Membranes Moist - Neck Exam Neck Exam: Normal Inspection - Respiratory Exam Respiratory Exam: Decreased Breath Sounds, Rales (Scattered ), NORMAL BREATHING PATTERN - Cardiovascular Exam Cardiovascular Exam: REGULAR RHYTHM, +S1, +S2 - GI/Abdominal Exam GI & Abdominal Exam: Soft, Tenderness (mild RUQ (Chronic, referred to GI in past )), Normal Bowel Sounds - Extremities Exam Extremities Exam: Full ROM, Normal Capillary Refill, Normal Inspection. absent : Joint Swelling, Pedal Edema, Tenderness - Back Exam Back Exam: NORMAL INSPECTION. absent: CVA tenderness (L), CVA tenderness (R) - Neurological Exam Neurological Exam: Alert, Awake, CN II-XII Intact, Oriented x3 - Psychiatric Exam Psychiatric exam: Normal Affect - Skin Additional comments: Chronic skin changes with Spiderangiomas Assessment and Plan - Assessment and Plan (Free Text) Assessment: A/P: 57 yr old M admitted to TCU fpr further evaluation and treatment after hospitalization for COPD exacerbation with PMHx of COPD, asymptomatic HIV (on ART), Hx Hep C (treated), substance abuse, hypertension, depression and morbid obesity. COPD, s/p acute exacerbation -chronic -Pulmonology consult, Dr. Carey, will follow up further recommendations -continue albuterol 0.083% INH Q4, Mucomyst 2ml INH RBID, -continue home medications: Advair 1 puff IH Q12, Spiriva 18mcg IH daily, Montelukast 10mg PO QHS -2L supplemental O2 via nasal cannula to keep O2 sat above 92% -Changed Methylprednisolone 40mg IVP Q12H to Q24H -c/w TCU management Human immunodeficiency virus (HIV) -Chronic, Asymptomatic -01/04/18: CD4 count 672, viral load < 20, -continue home medications: Tivicay 50mg daily, Truvada PO daily, compliant with medications (Pharmacy was called and confirmed) History of Hepatitis C -Patient was treated in past, last treatment was 1 year ago -no further workup required Hypertension -Chronic, uncontrolled -patient has elevated BP on occasion, will consider increasing vasotec -continue home medication: vasotec 5mg PO daily -monitor BP History of substance abuse -History of percocet and heroin abuse -continue Methadone 35mg daily ([facility] methadone clinic was called and confirmed, dose is 34mg PO QD, they approved giving 35mg as we only have doses in multiples of 5mg # [phone]) Mood Disorders -patient follows regularly with psychiatrist at [facility]-mental health clinic across hospital -continue home medications (confirmed with pharmacy): Zoloft 100mg PO Q12H, Seroquel PO 100mg QD, klonopin 0.5mg PO Q12H -denies SI/HI at this time Preventive Care - B12, TSH and Folate wnl - Alpha-1 antiT: Negative (Reports family hx of liver and lung conditions) DVT Prophylaxis -Lovenox 40mg SC Full Code Emergency Contact# [phone] (Sister, Molly Moralez)
[2018-03-01] MEDS: Emtricitabine-Tenofovir 200 mg-300 mg Tab PO SCH (22:40)
[2018-03-02] MEDS: Albuterol 0.083% Inhal Sol (2.5 mg/3 mL) UD INH SCH ×5 (05:02→19:15)
[2018-03-02 07:44] LABS: BASO % 0.4 % (0.0-2.0); EOS # 0.1 K/uL (0.0-0.7); EOS % 1.4 % (0.0-4.0); HEMOGLOBIN 12.8 g/dL (12.0-18.0); LYMPH # 1.7 K/uL (1.0-4.3); LYMPH % 34.1 % (20.0-40.0); MEAN CELL VOLUME 91.7 fl (80.0-94.0); MEAN CORPUSCULAR HEMOGLOBIN 30.6 pg (27.0-31.0); MEAN CORPUSCULAR HGB CONC 33.4 g/dL (33.0-37.0); MEAN PLATELET VOLUME 7.7 fl (7.2-11.7); MONO # 0.3 K/uL (0.0-0.8); NEUT % 58.1 % (50.0-75.0); NRBC % 0.3 % (0.0-0.0); RBC 4.17 Mil/uL (4.40-5.90); RED CELL DISTRIBUTION WIDTH 16.1 % (11.5-14.5); WHITE BLOOD COUNT 5.1 K/uL (4.8-10.8)
[2018-03-02] MEDS: Acetylcysteine 20% Inhal Soln (4ml) INH SCH ×2 (07:49→19:15)
[2018-03-02 08:01] LABS: ALB/GLOB RATIO 0.9 (1.0-2.1); ALBUMIN 3.4 g/dL (3.5-5.0); ALT/SGPT 48 U/L (21-72); AST/SGOT 36 U/L (17-59); BLOOD UREA NITROGEN 19 mg/dl (9-20); CALCIUM 8.6 mg/dL (8.4-10.2); GFR AFRICAN-AMERICAN > 60; GFR NON-AFRICAN AMERICAN > 60
[2018-03-02] MEDS: Enoxaparin 40 mg Syringe SC SCH (08:18)
[2018-03-02] MEDS: MethylPREDNISolone 40 mg Vial IVP SCH (08:20)
[2018-03-02] MEDS: Fluticasone-Salmeterol 500-50mcg Diskus IH SCH ×2 (08:20→21:11)
[2018-03-02] MEDS: Tiotropium 18 mcg Cap For Inhalation IH SCH (08:20)
[2018-03-02] MEDS ORDERED: Dextrose 50% SYRINGE Inj (50 ml) IV PRN (11:57)
[2018-03-02] MEDS ORDERED: Glucagon Recombinant 1 mg Inj IM PRN (11:57)
[2018-03-02] MEDS: Insulin Regular 100 units/ml SC SCH (16:30)
--- NOTE | 2018-03-02 19:35 | CP.PCM.PN ---
Subjective - Date & Time of Evaluation Date of Evaluation: 03/02/18 Time of Evaluation: 10:20 - Subjective Subjective: F/U COPD Exacerbation. Awake, no SOB on O2 at rest, less KHAN, walking slowly, last night had an episode of paroxysmal cough that has subsided. Objective - Vital Signs/Intake and Output Vital Signs (last 24 hours): Temp Pulse Resp BP Pulse Ox 97.7 F 73 20 127/65 96 03/02/18 15:59 03/02/18 15:59 03/02/18 15:59 03/02/18 15:59 03/02/18 15:59 - Medications Medications: Current Medications Acetylcysteine (Acetylcysteine 20%) 2 ml INH RBID [facility] Last Admin: 03/02/18 19:15 Dose: Not Given Albuterol Sulfate (Albuterol 0.083% Inhal Jennifer (2.5 Mg/3 Ml) Ud) 2.5 mg INH RQ4 [facility] Last Admin: 03/02/18 19:15 Dose: 2.5 mg Clonazepam (Klonopin) 0.5 mg PO Q12 [facility] Last Admin: 03/02/18 08:17 Dose: 0.5 mg Dextrose (Dextrose 50% Inj) 0 ml IV STAT PRN; Protocol PRN Reason: Hypoglycemia Protocol Dextrose (Glutose 15) 0 gm PO ONCE PRN; Protocol PRN Reason: Hypoglycemia Protocol Dolutegravir Sodium (Tivicay) 50 mg PO HS [facility] PRN Reason: Protocol Last Admin: 03/01/18 22:39 Dose: 50 mg Emtricitabine/Tenofovir (Truvada 200 Mg-300 Mg) 1 tab PO HS [facility] PRN Reason: Protocol Last Admin: 03/01/18 22:40 Dose: 1 tab Enalapril Maleate (Vasotec) 5 mg PO HS [facility] Last Admin: 03/01/18 22:41 Dose: 5 mg Enoxaparin Sodium (Lovenox) 40 mg SC DAILY [facility] PRN Reason: Protocol Last Admin: 03/02/18 08:18 Dose: 40 mg Famotidine (Pepcid) 20 mg PO DAILY [facility] Last Admin: 03/02/18 08:19 Dose: 20 mg Glucagon (Glucagen Diagnostic Kit) 0 mg IM STAT PRN; Protocol PRN Reason: Hypoglycemia Protocol Ibuprofen (Motrin Tab) 600 mg PO Q6 PRN PRN Reason: Pain, moderate (4-7) Insulin Human Regular (Humulin R) 0 units SC ACHS [facility] PRN Reason: Protocol Last Admin: 03/02/18 16:30 Dose: 1 units Methadone HCl (Methadone) 5 mg PO DAILY [facility] Last Admin: 03/02/18 08:18 Dose: 5 mg Methadone HCl (Methadone) 30 mg PO DAILY [facility] Last Admin: 03/02/18 08:17 Dose: 30 mg Methylprednisolone (Solu-Medrol) 40 mg IVP DAILY [facility] Last Admin: 03/02/18 08:20 Dose: 40 mg Montelukast Sodium (Singulair) 10 mg PO [facility] Last Admin: 03/01/18 22:39 Dose: 10 mg Nicotine (Nicoderm Cq) 1 patch TD DAILY [facility] Last Admin: 03/02/18 09:00 Dose: 1 patch Quetiapine Fumarate (Seroquel) 100 mg PO [facility] Last Admin: 03/01/18 22:38 Dose: 100 mg Fluticasone/Salmeterol (Advair Diskus 500/50) 1 puff IH Q12 [facility] Last Admin: 03/02/18 08:20 Dose: 1 puff Sertraline HCl (Zoloft) 100 mg PO Q12 [facility] Last Admin: 03/02/18 08:19 Dose: 100 mg Tiotropium [place] (Spiriva) 18 mcg IH DAILY [facility] Last Admin: 03/02/18 08:20 Dose: 18 mcg - Labs Labs: 03/02/18 06:45 03/02/18 06:45 - Constitutional Appears: No Acute Distress - Head Exam Head Exam: NORMAL INSPECTION - Eye Exam Eye Exam: PERRL - ENT Exam ENT Exam: Normal Exam - Neck Exam Neck Exam: Normal Inspection - Respiratory Exam Respiratory Exam: Decreased Breath Sounds (at bases), Rhonchi (few scattered) - Cardiovascular Exam Cardiovascular Exam: REGULAR RHYTHM - GI/Abdominal Exam GI & Abdominal Exam: Soft, Normal Bowel Sounds Additional comments: Obese - Extremities Exam Extremities Exam: Pedal Edema (b/l) - Back Exam Back Exam: NORMAL INSPECTION - Neurological Exam Neurological Exam: Alert, Oriented x3. absent: Motor Sensory Deficit - Psychiatric Exam Psychiatric exam: Normal Mood - Skin Skin Exam: Rash, Warm Assessment and Plan (1) COPD exacerbation Status: Acute (2) HIV (human immunodeficiency virus infection) Status: Acute - Assessment and Plan (Free Text) Plan: Continue Albuterol, Singulair, Solu-Medrol, Advair, NC 2 L/m.
[2018-03-02] MEDS: Emtricitabine-Tenofovir 200 mg-300 mg Tab PO SCH (21:12)
[2018-03-03] MEDS: Albuterol 0.083% Inhal Sol (2.5 mg/3 mL) UD INH SCH ×7 (00:51→23:09)
[2018-03-03] MEDS: Acetylcysteine 20% Inhal Soln (4ml) INH SCH ×2 (07:37→19:11)
[2018-03-03] MEDS: Insulin Regular 100 units/ml SC SCH ×6 (07:43→22:00)
[2018-03-03] MEDS: Fluticasone-Salmeterol 500-50mcg Diskus IH SCH ×2 (09:40→22:54)
[2018-03-03] MEDS: Enoxaparin 40 mg Syringe SC SCH (09:42)
[2018-03-03] MEDS: MethylPREDNISolone 40 mg Vial IVP SCH (09:45)
[2018-03-03] MEDS: Tiotropium 18 mcg Cap For Inhalation IH SCH (09:46)
--- NOTE | 2018-03-03 13:26 | CP.PCM.PN ---
Subjective - Date & Time of Evaluation Date of Evaluation: 03/03/18 Time of Evaluation: 12:25 - Subjective Subjective: F/U COPD Exacerbation. cough on and off, no SOB at rest with O2 N.C, mild KHAN with O2NC Objective - Vital Signs/Intake and Output Vital Signs (last 24 hours): Temp Pulse Resp BP Pulse Ox 97.9 F 81 20 105/55 L 93 L 03/03/18 08:48 03/03/18 08:48 03/03/18 08:48 03/03/18 08:48 03/03/18 08:48 - Medications Medications: Current Medications Acetylcysteine (Acetylcysteine 20%) 2 ml INH RBID [facility] Last Admin: 03/03/18 07:37 Dose: Not Given Albuterol Sulfate (Albuterol 0.083% Inhal Jennifer (2.5 Mg/3 Ml) Ud) 2.5 mg INH RQ4 [facility] Last Admin: 03/03/18 11:02 Dose: 2.5 mg Clonazepam (Klonopin) 0.5 mg PO Q12 [facility] Last Admin: 03/03/18 09:42 Dose: 0.5 mg Dextrose (Dextrose 50% Inj) 0 ml IV STAT PRN; Protocol PRN Reason: Hypoglycemia Protocol Dextrose (Glutose 15) 0 gm PO ONCE PRN; Protocol PRN Reason: Hypoglycemia Protocol Dolutegravir Sodium (Tivicay) 50 mg PO HS [facility] PRN Reason: Protocol Last Admin: 03/02/18 21:13 Dose: 50 mg Emtricitabine/Tenofovir (Truvada 200 Mg-300 Mg) 1 tab PO HS [facility] PRN Reason: Protocol Last Admin: 03/02/18 21:12 Dose: 1 tab Enalapril Maleate (Vasotec) 5 mg PO HS [facility] Last Admin: 03/02/18 21:13 Dose: 5 mg Enoxaparin Sodium (Lovenox) 40 mg SC DAILY [facility] PRN Reason: Protocol Last Admin: 03/03/18 09:42 Dose: 40 mg Famotidine (Pepcid) 20 mg PO DAILY [facility] Last Admin: 03/03/18 09:46 Dose: 20 mg Glucagon (Glucagen Diagnostic Kit) 0 mg IM STAT PRN; Protocol PRN Reason: Hypoglycemia Protocol Ibuprofen (Motrin Tab) 600 mg PO Q6 PRN PRN Reason: Pain, moderate (4-7) Insulin Human Regular (Humulin R) 0 units SC ACHS [facility] PRN Reason: Protocol Last Admin: 03/03/18 12:02 Dose: 1 units Methadone HCl (Methadone) 5 mg PO DAILY [facility] Last Admin: 03/03/18 09:44 Dose: 5 mg Methadone HCl (Methadone) 30 mg PO DAILY [facility] Last Admin: 03/03/18 09:43 Dose: 30 mg Methylprednisolone (Solu-Medrol) 40 mg IVP DAILY [facility] Last Admin: 03/03/18 09:45 Dose: 40 mg Montelukast Sodium (Singulair) 10 mg PO [facility] Last Admin: 03/02/18 21:12 Dose: 10 mg Nicotine (Nicoderm Cq) 1 patch TD DAILY [facility] Last Admin: 03/03/18 09:44 Dose: 1 patch Quetiapine Fumarate (Seroquel) 100 mg PO [facility] Last Admin: 03/02/18 21:14 Dose: 100 mg Fluticasone/Salmeterol (Advair Diskus 500/50) 1 puff IH Q12 [facility] Last Admin: 03/03/18 09:40 Dose: 1 puff Sertraline HCl (Zoloft) 100 mg PO Q12 [facility] Last Admin: 03/03/18 09:47 Dose: 100 mg Tiotropium [place] (Spiriva) 18 mcg IH DAILY [facility] Last Admin: 03/03/18 09:46 Dose: 18 mcg - Labs Labs: 03/02/18 06:45 03/02/18 06:45 - Constitutional Appears: Chronically Ill - Head Exam Head Exam: NORMAL INSPECTION - Eye Exam Eye Exam: PERRL - ENT Exam ENT Exam: Normal Exam - Neck Exam Neck Exam: Normal Inspection - Respiratory Exam Respiratory Exam: Decreased Breath Sounds (at bases), Wheezes (scattered) - Cardiovascular Exam Cardiovascular Exam: REGULAR RHYTHM - GI/Abdominal Exam GI & Abdominal Exam: Soft, Normal Bowel Sounds Additional comments: Obese - Extremities Exam Extremities Exam: Pedal Edema - Back Exam Back Exam: NORMAL INSPECTION - Neurological Exam Neurological Exam: Alert, Oriented x3. absent: Motor Sensory Deficit - Psychiatric Exam Psychiatric exam: Normal Mood - Skin Skin Exam: Rash, Warm Assessment and Plan (1) COPD exacerbation Status: Acute (2) HIV (human immunodeficiency virus infection) Status: Acute - Assessment and Plan (Free Text) Plan: continue DuoNeb, Mucomyst, O2NC, taper steroids, and rest of treatment
[2018-03-03] MEDS ORDERED: Potassium Chloride 20 mEq 100 ML IVPB ONE (18:51)
[2018-03-03] MEDS ORDERED: Potassium Chloride 20 mEq/15 ml LIQ UD PO ONE ×2 (18:57→19:49)
[2018-03-03] MEDS: Emtricitabine-Tenofovir 200 mg-300 mg Tab PO SCH (22:57)
[2018-03-04] MEDS: Albuterol 0.083% Inhal Sol (2.5 mg/3 mL) UD INH SCH ×6 (03:11→23:16)
[2018-03-04] MEDS: Insulin Regular 100 units/ml SC SCH ×4 (06:44→21:12)
[2018-03-04] MEDS: Acetylcysteine 20% Inhal Soln (4ml) INH SCH (07:34)
[2018-03-04 07:37] LABS: BLOOD UREA NITROGEN 16 mg/dl (9-20); CALCIUM 8.4 mg/dL (8.4-10.2); GFR AFRICAN-AMERICAN > 60; GFR NON-AFRICAN AMERICAN > 60
[2018-03-04] MEDS: Enoxaparin 40 mg Syringe SC SCH (08:16)
[2018-03-04] MEDS: Tiotropium 18 mcg Cap For Inhalation IH SCH (08:17)
[2018-03-04] MEDS: Fluticasone-Salmeterol 500-50mcg Diskus IH SCH ×2 (08:18→21:11)
--- NOTE | 2018-03-04 09:26 | CP.PCM.PN ---
Subjective - Date & Time of Evaluation Date of Evaluation: 03/04/18 Time of Evaluation: 08:00 - Subjective Subjective: Patient seen and examined this morning, NAD. Patient is tolerating PO diet, ambulating, denies any chest pain, dizziness. Reports using O2 NC overnight on and off, still gets SOB with ambulation. Objective - Vital Signs/Intake and Output Vital Signs (last 24 hours): Temp Pulse Resp BP Pulse Ox 98.0 F 72 20 118/67 97 03/04/18 08:19 03/04/18 08:19 03/04/18 08:19 03/04/18 08:19 03/04/18 08:19 - Medications Medications: Current Medications Acetylcysteine (Acetylcysteine 20%) 2 ml INH RBID [facility] Last Admin: 03/04/18 07:34 Dose: Not Given Albuterol Sulfate (Albuterol 0.083% Inhal Jennifer (2.5 Mg/3 Ml) Ud) 2.5 mg INH RQ4 [facility] Last Admin: 03/04/18 07:33 Dose: 2.5 mg Clonazepam (Klonopin) 0.5 mg PO Q12 [facility] Last Admin: 03/04/18 08:24 Dose: 0.5 mg Dextrose (Dextrose 50% Inj) 0 ml IV STAT PRN; Protocol PRN Reason: Hypoglycemia Protocol Dextrose (Glutose 15) 0 gm PO ONCE PRN; Protocol PRN Reason: Hypoglycemia Protocol Dolutegravir Sodium (Tivicay) 50 mg PO HS [facility] PRN Reason: Protocol Last Admin: 03/03/18 22:57 Dose: 50 mg Emtricitabine/Tenofovir (Truvada 200 Mg-300 Mg) 1 tab PO HS [facility] PRN Reason: Protocol Last Admin: 03/03/18 22:57 Dose: 1 tab Enalapril Maleate (Vasotec) 5 mg PO HS [facility] Last Admin: 03/03/18 22:58 Dose: 5 mg Enoxaparin Sodium (Lovenox) 40 mg SC DAILY [facility] PRN Reason: Protocol Last Admin: 03/04/18 08:16 Dose: 40 mg Famotidine (Pepcid) 20 mg PO DAILY [facility] Last Admin: 03/04/18 08:16 Dose: 20 mg Glucagon (Glucagen Diagnostic Kit) 0 mg IM STAT PRN; Protocol PRN Reason: Hypoglycemia Protocol Ibuprofen (Motrin Tab) 600 mg PO Q6 PRN PRN Reason: Pain, moderate (4-7) Insulin Human Regular (Humulin R) 0 units SC ACHS [facility] PRN Reason: Protocol Last Admin: 03/04/18 06:44 Dose: 1 units Methadone HCl (Methadone) 5 mg PO DAILY [facility] Last Admin: 03/04/18 08:15 Dose: 5 mg Methadone HCl (Methadone) 30 mg PO DAILY [facility] Last Admin: 03/04/18 08:16 Dose: 30 mg Montelukast Sodium (Singulair) 10 mg PO HS [facility] Last Admin: 03/03/18 22:57 Dose: 10 mg Nicotine (Nicoderm Cq) 1 patch TD DAILY [facility] Last Admin: 03/04/18 08:15 Dose: 1 patch Prednisone (Prednisone Tab) 30 mg PO DAILY [facility] Last Admin: 03/04/18 08:14 Dose: 30 mg Quetiapine Fumarate (Seroquel) 100 mg PO [facility] Last Admin: 03/03/18 22:57 Dose: 100 mg Fluticasone/Salmeterol (Advair Diskus 500/50) 1 puff IH Q12 [facility] Last Admin: 03/04/18 08:18 Dose: 1 puff Sertraline HCl (Zoloft) 100 mg PO Q12 [facility] Last Admin: 03/04/18 08:18 Dose: 100 mg Tiotropium [place] (Spiriva) 18 mcg IH DAILY [facility] Last Admin: 03/04/18 08:17 Dose: 18 mcg - Labs Labs: 03/02/18 06:45 03/04/18 06:40 - Constitutional Appears: No Acute Distress - Head Exam Head Exam: NORMAL INSPECTION - Eye Exam Eye Exam: Normal appearance - ENT Exam ENT Exam: Mucous Membranes Moist - Neck Exam Neck Exam: Normal Inspection - Respiratory Exam Respiratory Exam: Decreased Breath Sounds, NORMAL BREATHING PATTERN. absent: Wheezes, Respiratory Distress - Cardiovascular Exam Cardiovascular Exam: REGULAR RHYTHM, +S1, +S2 - GI/Abdominal Exam GI & Abdominal Exam: Soft, Normal Bowel Sounds Additional comments: obese abdomen - Extremities Exam Extremities Exam: Full ROM, Normal Capillary Refill, Normal Inspection - Back Exam Back Exam: NORMAL INSPECTION. absent: CVA tenderness (L), CVA tenderness (R) - Neurological Exam Neurological Exam: Alert, Awake, CN II-XII Intact, Oriented x3 - Psychiatric Exam Psychiatric exam: Normal Affect - Skin Skin Exam: Dry, Intact, Normal Color, Warm Assessment and Plan - Assessment and Plan (Free Text) Assessment: A/P: 57 yr old M admitted to TCU fpr further evaluation and treatment after hospitalization for COPD exacerbation with PMHx of COPD, asymptomatic HIV (on ART), Hx Hep C (treated), substance abuse, hypertension, depression and morbid obesity. COPD, s/p acute exacerbation -chronic -Pulmonology consult, Dr. Carey, will follow up further recommendations -continue albuterol 0.083% INH Q4, Mucomyst 2ml INH RBID, -continue home medications: Advair 1 puff IH Q12, Spiriva 18mcg IH daily, Montelukast 10mg PO QHS -2L supplemental O2 via nasal cannula to keep O2 sat above 92% -Changed prednisone 30mg PO daily -c/w TCU management -Follow up 6 mins Walk Test Human immunodeficiency virus (HIV) -Chronic, Asymptomatic -01/04/18: CD4 count 672, viral load < 20, -continue home medications: Tivicay 50mg daily, Truvada PO daily, compliant with medications (Pharmacy was called and confirmed) History of Hepatitis C -Patient was treated in past, last treatment was 1 year ago -No further workup required Hypokalemia - Replete as needed Hypertension -Chronic, uncontrolled -patient has elevated BP on occasion, will consider increasing vasotec -continue home medication: vasotec 5mg PO daily -monitor BP History of substance abuse -History of percocet and heroin abuse -continue Methadone 35mg daily ([facility] methadone clinic was called and confirmed, dose is 34mg PO QD, they approved giving 35mg as we only have doses in multiples of 5mg # [phone]) Mood Disorders -patient follows regularly with psychiatrist at [facility]-mental health clinic across hospital -continue home medications (confirmed with pharmacy): Zoloft 100mg PO Q12H, Seroquel PO 100mg QD, klonopin 0.5mg PO Q12H -denies SI/HI at this time Preventive Care - B12, TSH and Folate wnl - Alpha-1 antiT: Negative (Reports family hx of liver and lung conditions) DVT Prophylaxis -Lovenox 40mg SC Full Code Emergency Contact# [phone] (Sister, Molly Moralez)
--- NOTE | 2018-03-04 15:38 | CP.PCM.PN ---
Subjective - Date & Time of Evaluation Date of Evaluation: 03/04/18 Time of Evaluation: 10:25 - Subjective Subjective: F/U COPD Exacerbation. No SOB at rest, mild KHAN with O2NC, occasional cough Objective - Vital Signs/Intake and Output Vital Signs (last 24 hours): Temp Pulse Resp BP Pulse Ox 98.0 F 72 20 118/67 97 03/04/18 08:19 03/04/18 08:19 03/04/18 08:19 03/04/18 08:19 03/04/18 08:19 - Medications Medications: Current Medications Acetylcysteine (Acetylcysteine 20%) 2 ml INH RBID [facility] Last Admin: 03/04/18 07:34 Dose: Not Given Albuterol Sulfate (Albuterol 0.083% Inhal Jennifer (2.5 Mg/3 Ml) Ud) 2.5 mg INH RQ4 [facility] Last Admin: 03/04/18 15:23 Dose: 2.5 mg Clonazepam (Klonopin) 0.5 mg PO Q12 [facility] Last Admin: 03/04/18 08:24 Dose: 0.5 mg Dextrose (Dextrose 50% Inj) 0 ml IV STAT PRN; Protocol PRN Reason: Hypoglycemia Protocol Dextrose (Glutose 15) 0 gm PO ONCE PRN; Protocol PRN Reason: Hypoglycemia Protocol Dolutegravir Sodium (Tivicay) 50 mg PO HS [facility] PRN Reason: Protocol Last Admin: 03/03/18 22:57 Dose: 50 mg Emtricitabine/Tenofovir (Truvada 200 Mg-300 Mg) 1 tab PO HS [facility] PRN Reason: Protocol Last Admin: 03/03/18 22:57 Dose: 1 tab Enalapril Maleate (Vasotec) 5 mg PO HS [facility] Last Admin: 03/03/18 22:58 Dose: 5 mg Enoxaparin Sodium (Lovenox) 40 mg SC DAILY [facility] PRN Reason: Protocol Last Admin: 03/04/18 08:16 Dose: 40 mg Famotidine (Pepcid) 20 mg PO DAILY [facility] Last Admin: 03/04/18 08:16 Dose: 20 mg Glucagon (Glucagen Diagnostic Kit) 0 mg IM STAT PRN; Protocol PRN Reason: Hypoglycemia Protocol Ibuprofen (Motrin Tab) 600 mg PO Q6 PRN PRN Reason: Pain, moderate (4-7) Insulin Human Regular (Humulin R) 0 units SC ACHS [facility] PRN Reason: Protocol Last Admin: 03/04/18 12:29 Dose: Not Given Methadone HCl (Methadone) 5 mg PO DAILY [facility] Last Admin: 03/04/18 08:15 Dose: 5 mg Methadone HCl (Methadone) 30 mg PO DAILY [facility] Last Admin: 03/04/18 08:16 Dose: 30 mg Montelukast Sodium (Singulair) 10 mg PO HS [facility] Last Admin: 03/03/18 22:57 Dose: 10 mg Nicotine (Nicoderm Cq) 1 patch TD DAILY [facility] Last Admin: 03/04/18 08:15 Dose: 1 patch Prednisone (Prednisone Tab) 30 mg PO DAILY [facility] Last Admin: 03/04/18 08:14 Dose: 30 mg Quetiapine Fumarate (Seroquel) 100 mg PO HS [facility] Last Admin: 03/03/18 22:57 Dose: 100 mg Fluticasone/Salmeterol (Advair Diskus 500/50) 1 puff IH Q12 [facility] Last Admin: 03/04/18 08:18 Dose: 1 puff Sertraline HCl (Zoloft) 100 mg PO Q12 [facility] Last Admin: 03/04/18 08:18 Dose: 100 mg Tiotropium [place] (Spiriva) 18 mcg IH DAILY [facility] Last Admin: 03/04/18 08:17 Dose: 18 mcg - Labs Labs: 03/02/18 06:45 03/04/18 06:40 - Constitutional Appears: Chronically Ill - Head Exam Head Exam: NORMAL INSPECTION - Eye Exam Eye Exam: PERRL - ENT Exam ENT Exam: Normal Exam - Neck Exam Neck Exam: Normal Inspection - Respiratory Exam Respiratory Exam: Decreased Breath Sounds (at bases), Wheezes (scattered) - Cardiovascular Exam Cardiovascular Exam: REGULAR RHYTHM - GI/Abdominal Exam GI & Abdominal Exam: Soft, Normal Bowel Sounds Additional comments: Obese - Extremities Exam Extremities Exam: Pedal Edema (b/l) Additional comments: Fungus on L great toe nail. - Back Exam Back Exam: NORMAL INSPECTION - Neurological Exam Neurological Exam: Alert, Oriented x3. absent: Motor Sensory Deficit - Psychiatric Exam Psychiatric exam: Normal Mood - Skin Skin Exam: Rash, Warm Assessment and Plan (1) COPD exacerbation Status: Acute (2) HIV (human immunodeficiency virus infection) Status: Acute - Assessment and Plan (Free Text) Plan: Continue Prednisone, Advair, Spiriva, O2NC and rest of Tx.
[2018-03-04] MEDS: Emtricitabine-Tenofovir 200 mg-300 mg Tab PO SCH (21:16)
[2018-03-05] MEDS: Albuterol 0.083% Inhal Sol (2.5 mg/3 mL) UD INH SCH ×6 (04:41→23:29)
[2018-03-05 06:51] LABS: BASO % 0.4 % (0.0-2.0); EOS # 0.1 K/uL (0.0-0.7); EOS % 2.2 % (0.0-4.0); HEMOGLOBIN 12.5 g/dL (12.0-18.0); LYMPH # 1.6 K/uL (1.0-4.3); LYMPH % 26.3 % (20.0-40.0); MEAN CELL VOLUME 91.8 fl (80.0-94.0); MEAN CORPUSCULAR HEMOGLOBIN 30.6 pg (27.0-31.0); MEAN CORPUSCULAR HGB CONC 33.3 g/dL (33.0-37.0); MEAN PLATELET VOLUME 7.7 fl (7.2-11.7); MONO # 0.5 K/uL (0.0-0.8); MONO % 8.2 % (0.0-10.0); NEUT # 3.7 K/uL (1.8-7.0); NEUT % 62.9 % (50.0-75.0); RBC 4.09 Mil/uL (4.40-5.90); RED CELL DISTRIBUTION WIDTH 15.7 % (11.5-14.5)
[2018-03-05] MEDS: Acetylcysteine 20% Inhal Soln (4ml) INH SCH ×2 (07:30→19:44)
[2018-03-05] MEDS: Insulin Regular 100 units/ml SC SCH ×4 (07:47→21:33)
[2018-03-05] MEDS: Enoxaparin 40 mg Syringe SC SCH (08:49)
[2018-03-05] MEDS: Tiotropium 18 mcg Cap For Inhalation IH SCH (08:49)
[2018-03-05] MEDS: Fluticasone-Salmeterol 500-50mcg Diskus IH SCH ×2 (08:52→21:32)
--- NOTE | 2018-03-05 16:54 | CP.PCM.PN ---
Subjective - Date & Time of Evaluation Date of Evaluation: 03/05/18 Time of Evaluation: 09:50 - Subjective Subjective: F/U COPD Exacerbation. no SOB , ambulating off O2 Objective - Vital Signs/Intake and Output Vital Signs (last 24 hours): Temp Pulse Resp BP Pulse Ox 98.2 F 95 H 20 130/87 90 L 03/05/18 16:00 03/05/18 16:00 03/05/18 16:00 03/05/18 16:00 03/05/18 16:00 - Medications Medications: Current Medications Acetylcysteine (Acetylcysteine 20%) 2 ml INH RBID [facility] Last Admin: 03/05/18 07:30 Dose: Not Given Albuterol Sulfate (Albuterol 0.083% Inhal Jennifer (2.5 Mg/3 Ml) Ud) 2.5 mg INH RQ4 [facility] Last Admin: 03/05/18 15:47 Dose: 2.5 mg Clonazepam (Klonopin) 0.5 mg PO Q12 [facility] Last Admin: 03/05/18 08:50 Dose: 0.5 mg Dextrose (Dextrose 50% Inj) 0 ml IV STAT PRN; Protocol PRN Reason: Hypoglycemia Protocol Dextrose (Glutose 15) 0 gm PO ONCE PRN; Protocol PRN Reason: Hypoglycemia Protocol Dolutegravir Sodium (Tivicay) 50 mg PO HS [facility] PRN Reason: Protocol Last Admin: 03/04/18 21:15 Dose: 50 mg Emtricitabine/Tenofovir (Truvada 200 Mg-300 Mg) 1 tab PO HS [facility] PRN Reason: Protocol Last Admin: 03/04/18 21:16 Dose: 1 tab Enalapril Maleate (Vasotec) 5 mg PO HS [facility] Last Admin: 03/04/18 21:17 Dose: 5 mg Enoxaparin Sodium (Lovenox) 40 mg SC DAILY [facility] PRN Reason: Protocol Last Admin: 03/05/18 08:49 Dose: 40 mg Famotidine (Pepcid) 20 mg PO DAILY [facility] Last Admin: 03/05/18 08:48 Dose: 20 mg Glucagon (Glucagen Diagnostic Kit) 0 mg IM STAT PRN; Protocol PRN Reason: Hypoglycemia Protocol Ibuprofen (Motrin Tab) 600 mg PO Q6 PRN PRN Reason: Pain, moderate (4-7) Insulin Human Regular (Humulin R) 0 units SC ACHS [facility] PRN Reason: Protocol Last Admin: 03/05/18 16:07 Dose: Not Given Methadone HCl (Methadone) 5 mg PO DAILY [facility] Last Admin: 03/05/18 08:52 Dose: 5 mg Methadone HCl (Methadone) 30 mg PO DAILY [facility] Last Admin: 03/05/18 08:51 Dose: 30 mg Montelukast Sodium (Singulair) 10 mg PO HS [facility] Last Admin: 03/04/18 21:15 Dose: 10 mg Nicotine (Nicoderm Cq) 1 patch TD DAILY [facility] Last Admin: 03/05/18 08:47 Dose: 1 patch Prednisone (Prednisone Tab) 30 mg PO DAILY [facility] Last Admin: 03/05/18 08:48 Dose: 30 mg Quetiapine Fumarate (Seroquel) 100 mg PO HS [facility] Last Admin: 03/04/18 21:15 Dose: 100 mg Fluticasone/Salmeterol (Advair Diskus 500/50) 1 puff IH Q12 [facility] Last Admin: 03/05/18 08:52 Dose: 1 puff Sertraline HCl (Zoloft) 100 mg PO Q12 [facility] Last Admin: 03/05/18 08:49 Dose: 100 mg Tiotropium [place] (Spiriva) 18 mcg IH DAILY [facility] Last Admin: 03/05/18 08:49 Dose: 18 mcg - Labs Labs: 03/05/18 05:40 03/04/18 06:40 - Constitutional Appears: Chronically Ill - Head Exam Head Exam: NORMAL INSPECTION - Eye Exam Eye Exam: PERRL - ENT Exam ENT Exam: Normal Exam - Neck Exam Neck Exam: Normal Inspection - Respiratory Exam Respiratory Exam: Decreased Breath Sounds (at bases) - Cardiovascular Exam Cardiovascular Exam: REGULAR RHYTHM - GI/Abdominal Exam GI & Abdominal Exam: Soft, Normal Bowel Sounds Additional comments: Obese - Extremities Exam Extremities Exam: Pedal Edema (b/l) Additional comments: Fongus on L great toe nail, bandage on place - Back Exam Back Exam: NORMAL INSPECTION - Neurological Exam Neurological Exam: Alert, Oriented x3. absent: Motor Sensory Deficit - Psychiatric Exam Psychiatric exam: Normal Mood - Skin Skin Exam: Rash (generalized skin 2nd to Hepatitis C medications, no itching.), Warm Assessment and Plan (1) COPD exacerbation Status: Acute (2) HIV (human immunodeficiency virus infection) Status: Acute - Assessment and Plan (Free Text) Plan: Patient is off O2, POx 94% RA, 6min POx walking, Patient does not meet guidelines for home O2, continue Advair, DuoNeb, Nicoderm, Prednisone tapering dosis
[2018-03-05 20:11] VITALS: PULSE 74
[2018-03-05] MEDS: Emtricitabine-Tenofovir 200 mg-300 mg Tab PO SCH (21:35)
[2018-03-06] MEDS: Albuterol 0.083% Inhal Sol (2.5 mg/3 mL) UD INH SCH ×3 (03:58→11:13)
[2018-03-06] MEDS: Insulin Regular 100 units/ml SC SCH (06:53)
[2018-03-06] MEDS: Acetylcysteine 20% Inhal Soln (4ml) INH SCH (08:13)
--- NOTE | 2018-03-06 08:22 | CP.PCM.DIS ---
Provider - Provider Date of Admission: 02/26/18 16:31 Attending physician: Elda López MD Primary care physician: Dr. Dennis Consults: Pulmonary, Dr. Hernandez Time Spent in preparation of Discharge (in minutes): 40 Diagnosis - Discharge Diagnosis (1) COPD exacerbation Status: Acute (2) HIV (human immunodeficiency virus infection) Status: Chronic (3) History of hepatitis C Status: Resolved (4) Hypertension Status: Chronic (5) History of substance abuse Status: Chronic Comment: continue Methadone Hospital Course - Lab Results Lab Results: Most Recent Lab Values WBC 6.0 K/uL (4.8-10.8) 03/05/18 05:40 RBC 4.09 Mil/uL (4.40-5.90) L 03/05/18 05:40 Hgb 12.5 g/dL (12.0-18.0) 03/05/18 05:40 Hct 37.6 % (35.0-51.0) 03/05/18 05:40 MCV 91.8 fl (80.0-94.0) 03/05/18 05:40 MCH 30.6 pg (27.0-31.0) 03/05/18 05:40 MCHC 33.3 g/dL (33.0-37.0) 03/05/18 05:40 RDW 15.7 % (11.5-14.5) H 03/05/18 05:40 Plt Count 92 K/uL (130-400) L 03/05/18 05:40 MPV 7.7 fl (7.2-11.7) 03/05/18 05:40 Neut % (Auto) 62.9 % (50.0-75.0) 03/05/18 05:40 Lymph % (Auto) 26.3 % (20.0-40.0) 03/05/18 05:40 [place] % (Auto) 8.2 % (0.0-10.0) 03/05/18 05:40 Eos % (Auto) 2.2 % (0.0-4.0) 03/05/18 05:40 Baso % (Auto) 0.4 % (0.0-2.0) 03/05/18 05:40 Neut # (Auto) 3.7 K/uL (1.8-7.0) 03/05/18 05:40 Lymph # (Auto) 1.6 K/uL (1.0-4.3) 03/05/18 05:40 [place] # (Auto) 0.5 K/uL (0.0-0.8) 03/05/18 05:40 Eos # (Auto) 0.1 K/uL (0.0-0.7) 03/05/18 05:40 Baso # (Auto) 0.0 K/uL (0.0-0.2) 03/05/18 05:40 Sodium 141 mmol/l (132-148) 03/04/18 06:40 Potassium 3.7 MMOL/L (3.6-5.0) 03/04/18 06:40 Chloride 101 mmol/L (98-107) 03/04/18 06:40 Carbon Dioxide 31 mmol/L (22-30) H 03/04/18 06:40 Anion Gap 13 (10-20) 03/04/18 06:40 BUN 16 mg/dl (9-20) 03/04/18 06:40 Creatinine 0.7 mg/dl (0.8-1.5) L 03/04/18 06:40 Est GFR ( Amer) > 60 03/04/18 06:40 Est GFR (Non-Af Amer) > 60 03/04/18 06:40 POC Glucose (mg/dL) 134 mg/dL (65-110) H 03/06/18 06:49 Random Glucose 123 mg/dL (75-110) H 03/04/18 06:40 Calcium 8.4 mg/dL (8.4-10.2) 03/04/18 06:40 Total Bilirubin 0.5 mg/dl (0.2-1.3) 03/02/18 06:45 AST 36 U/L (17-59) 03/02/18 06:45 ALT 48 U/L (21-72) 03/02/18 06:45 Alkaline Phosphatase 76 U/L (38-126) 03/02/18 06:45 Total Protein 7.2 G/DL (6.3-8.2) 03/02/18 06:45 Albumin 3.4 g/dL (3.5-5.0) L 03/02/18 06:45 Globulin 3.7 gm/dL (2.2-3.9) 03/02/18 06:45 Albumin/Globulin Ratio 0.9 (1.0-2.1) L 03/02/18 06:45 - Hospital Course Hospital Course: 57 y/o male with PMH of COPD, asymptomatic HIV (On ART), Hep C (treated), substance abuse, hypertension, depression and Morbid obesity admitted to TCU for evaluation and treatment of COPD s/p hospital discharge. Patient remained stable, continued PT, oral prednisone and home medications including methadone. Pulmonary, Dr. hernandez was consulted, Patient's respiratory status improving, evaluated with 6mins walk test. Patient doesn't qualify for home oxygen at this time. Patient was discharged home with instructions to continue his home medication, follow up with pulmonary and follow up with PMD. Home medications: Albuterol, Klonopin 0.5mg daily, Tivicay 50mg daily, Truvada PO daily, Enalapril 5mg daily, Advair, Montelukast 10mg, Seroquel 100mg, Zoloft 100mg daily, Spiriva, and Methadone 34mg daily (Confirmed with the clinic # ), ([facility] was called, patient has refills for all the medication. Patient will be following up with Psychiatrist after discharge for psych medications) New Medications: Prednisone 20mg PO daily for next 3 days Discharge Exam - Head Exam Head Exam: NORMAL INSPECTION - Eye Exam Eye Exam: Normal appearance - ENT Exam ENT Exam: Mucous Membranes Moist - Neck Exam Neck exam: Normal Inspection - Respiratory Exam Respiratory Exam: Decreased Breath Sounds, NORMAL BREATHING PATTERN. absent: Accessory Muscle Use, Chest Wall Tenderness, Rhonchi, Wheezes, Respiratory Distress - Cardiovascular Exam Cardiovascular Exam: REGULAR RHYTHM, +S1, +S2 - GI/Abdominal Exam GI & Abdominal Exam: Soft. absent: Guarding, Rebound, Rigid, Tenderness Additional comments: large abdominal pannus - Extremities Exam Extremities exam: normal capillary refill, pedal pulses present - Back Exam Back exam: absent: CVA tenderness (L), CVA tenderness (R) - Neurological Exam Neurological exam: Alert, CN II-XII Intact, Oriented x3 - Psychiatric Exam Psychiatric exam: Normal Affect - Skin Additional comments: Chronic skin changes after Hep C treatment in the past Discharge Plan - Discharge Medications Prescriptions: predniSONE [predniSONE Tab] 20 mg PO DAILY 3 Days #3 tab - Follow Up Plan Condition: GOOD Disposition: HOME/ ROUTINE Instructions: Exacerbation of COPD (DC) Additional Instructions: Follow up with PMD, on 03/13/[address] Dennis Follow up with Pulmonary, Dr. Hernandez with in a week of the discharge C/w home medications, including Methadone Referrals: Pipe Dennis MD [Family Provider] - Chad Hernandez MD [Staff Provider] -
[2018-03-06] MEDS: Tiotropium 18 mcg Cap For Inhalation IH SCH (09:09)
[2018-03-06] MEDS: Enoxaparin 40 mg Syringe SC SCH (09:12)
[2018-03-06] MEDS: Fluticasone-Salmeterol 500-50mcg Diskus IH SCH (09:19)
[2018-03-06 09:29] VITALS: BP 132/69; TEMP 97.7; O2SAT 96
== END 2018-03-06 12:54 | disposition home health service (06) | DRG 191 ==
LOC: H.TCU 16:31
PROVIDERS: ADMIT Family Medicine; ATTEND Family Medicine
PROC: F07Z9FZ Gait Training/Functional Ambulation Treatment using Assistive, Adaptive, Supportive or Protective Equipment (ICD-10-PCS; principal; 2018-02-26)
PROC: F08Z4FZ Home Management Treatment using Assistive, Adaptive, Supportive or Protective Equipment (ICD-10-PCS; 2018-02-26)
PROC: F07M6FZ Therapeutic Exercise Treatment of Musculoskeletal System - Whole Body using Assistive, Adaptive, Supportive or Protective Equipment (ICD-10-PCS; 2018-02-27)
DX: J44.1 Chronic obstructive pulmonary disease with (acute) exacerbation (principal); Z68.41 Body mass index [BMI] 40.0-44.9, adult; F11.20 Opioid dependence, uncomplicated; E66.01 Morbid (severe) obesity due to excess calories; Z21 Asymptomatic human immunodeficiency virus [HIV] infection status; E87.6 Hypokalemia; R26.81 Unsteadiness on feet; I10 Essential (primary) hypertension; F41.9 Anxiety disorder, unspecified; F32.9 Major depressive disorder, single episode, unspecified; F17.210 Nicotine dependence, cigarettes, uncomplicated; Z91.81 History of falling; Z86.19 Personal history of other infectious and parasitic diseases

== ENCOUNTER 2018-06-06 15:12 | Observation (INO) | payer MEDICARE, MEDICAID ==
[2018-06-06 15:12] VITALS: BMI 43.2
--- NOTE | 2018-06-06 15:53 | ED PDOC ---
Lower Extremity Pain/Injury Time Seen by Provider: 06/06/18 15:25 Chief Complaint (Nursing): Lower Extremity Problem/Injury Chief Complaint (Provider): Lower Extremity Problem/Injury History Per: Patient History/Exam Limitations: no limitations Onset/Duration Of Symptoms: Days (x 3) Current Symptoms Are (Timing): Still Present Additional Complaint(s): 58 year old male with a history of COPD, HTN, HIV and depression presents to the ED with progressively worsening swelling, pain and redness to bilateral lower legs. The left is worse than the right. Patient reported that he fell right after pain began because his legs started to feel weak. He complains of a subjective fever and shortness of breath which correlates with his baseline. The patient saw Dr. dAdison today who advised him to come here. He denies pain medications, trauma, phlegm, cough and chills. PMD: Dr. Addison Past Medical History Reviewed: Historical Data, Nursing Documentation, Vital Signs Vital Signs: Last Vital Signs Temp 98.7 F 06/06/18 15:21 Pulse 110 H 06/06/18 15:21 Resp 16 06/06/18 15:21 BP 99/72 L 06/06/18 15:21 Pulse Ox 96 06/06/18 15:21 - Medical History PMH: Anxiety, Asthma, COPD, Depression, HIV, HTN Denies: Chronic Kidney Disease - Surgical History Surgical History: Appendectomy Other surgeries: ganglian cystectomy - Family History Family History: States: Unknown Family Hx - Social History Current smoker - smoking cessation education provided: Yes (less than a cigarette/day ) Alcohol: None Drugs: Opiates (history of opiate abuse; now on methadone) - Home Medications Home Medications: Ambulatory Orders Medication Instructions Recorded Budesonide/Formoterol Fumarate 2 puff IH Q12 02/22/18 [Symbicort 160-4.5 Mcg Inhaler] Dolutegravir Sodium [Tivicay] 50 mg PO HS 02/22/18 Emtricitabine/Tenofovir Diso 1 tab PO HS 02/22/18 [Truvada 200 MG-300 MG] Enalapril Maleate [Vasotec] 5 mg PO DAILY 02/22/18 Montelukast [Singulair] 10 mg PO DAILY 02/22/18 QUEtiapine [Seroquel] 100 mg PO HS 02/22/18 Sertraline [Zoloft] 100 mg PO Q12 02/22/18 Tiotropium [Spiriva] 18 mcg IH DAILY 02/22/18 Albuterol Sulfate [Ventolin Hfa] 2 puff IH Q6 PRN 06/06/18 Gabapentin [Neurontin] 300 mg PO Q12 PRN 06/06/18 Naproxen [Naprosyn] 500 mg PO Q12 06/06/18 Torsemide [Demadex] 5 mg PO DAILY 06/06/18 clonazePAM [Klonopin] 0.5 mg PO Q12 06/06/18 tiZANidine [Zanaflex] 2 mg PO Q12 PRN 06/06/18 - Allergies Allergies/Adverse Reactions: Allergies Allergy/AdvReac Type Severity Reaction Status Date / Time No Known Allergies Allergy Verified 06/06/18 15:21 Review of Systems ROS Statement: Except As Marked, All Systems Reviewed And Found Negative Constitutional: Positive for: Fever. Negative for: Chills Cardiovascular: Negative for: Chest Pain Respiratory: Negative for: Cough, Sputum Musculoskeletal: Positive for: Leg Pain (worsening bilateral leg swelling, redness and pain) Physical Exam - Reviewed Nursing Documentation Reviewed: Yes Vital Signs Reviewed: Yes - Physical Exam Appears: Positive for: In Acute Distress (mild to moderate painful distress; morbidly obese) Head Exam: Positive for: ATRAUMATIC, NORMAL INSPECTION, NORMOCEPHALIC Skin: Positive for: Normal Color, Warm, Dry Eye Exam: Positive for: EOMI, Normal appearance, PERRL ENT: Positive for: Pharynx Is (clear). Negative for: Pharyngeal Erythema, Tonsillar Exudate Neck: Positive for: Normal, Painless ROM, Supple Cardiovascular/Chest: Positive for: Regular Rate, Rhythm. Negative for: Murmur Respiratory: Positive for: Decreased Breath Sounds (distant breath sounds), Rhonchi (faint ). Negative for: Accessory Muscle Use, Wheezing, Respiratory Distress Gastrointestinal/Abdominal: Positive for: Soft (and protuberant). Negative for: Tenderness Back: Positive for: Normal Inspection. Negative for: L CVA Tenderness, R CVA Tenderness Extremity: Positive for: Tenderness (exquisite tenderness to palpitations of bilateral feet), Pedal Edema (bilateral lower leg edema 2-3+ extending from feet to just below knee with warmth, induration and blanching edema;localized left lateral malleolus worse than right side), Other (healed abrasions on knees without purulent drainage ) Lymphatic: Negative for: Adenopathy Neurologic/Psych: Positive for: Alert, Oriented. Negative for: Motor/Sensory Deficits - Laboratory Results Result Diagrams: 06/06/18 16:10 06/06/18 16:10 - ECG O2 Sat by Pulse Oximetry: 96 (RA) Pulse Ox Interpretation: Normal Medical Decision Making Medical Decision Makin:35 Imp: leg swelling Differential diagnoses include but are not limited to: Cellulitis, DVT, fluid r etention and sepsis Initial Plan: --Blood type --EKG --CMP --lactic Acid --TSH --Urine dip --CBC --PTT/INR --b/l ankle x-ray --CXR --Toradol 30 mg IV --Tylenol 975 mg --blood cx --UA Labs: No clinically significant abnormalities Accession No. : [id number] Patient Name / ID : STEVE LYLES / [id number] Exam Date : 06/06/2018 16:26:00 ( Approved ) Study Comment : Sex / Age : M / 58Y Creator : Ki Bradshaw MD Dictator : Ki Bradshaw MD Respite Care Provider : Optics Test Technician : Ki Bradshaw MD Approver2 : Report Date : 06/06/2018 17:38:56 My Comment : Date of service: 06/06/2018 PROCEDURE: Bilateral lower extremity venous duplex Doppler. HISTORY: bilateral leg swelling obesity COMPARISON: None available. TECHNIQUE: Bilateral common femoral, superficial femoral, popliteal and posterior tibial veins were evaluated. Flow was assessed with color Doppler, compressibility, assessment of phasic flow and augmentation response. FINDINGS: COMMON FEMORAL VEIN: Right CFV: Unremarkable. Left CFV: Unremarkable. SUPERFICIAL FEMORAL VEIN: Right SFV: Unremarkable. Left SFV: Unremarkable. POPLITEAL VEIN: Right Popliteal: Unremarkable. Left Popliteal: Unremarkable. POSTERIOR TIBIAL VEIN: Right PTV: Unremarkable. Left PTV: Unremarkable. OTHER FINDINGS: None. IMPRESSION: No evidence of deep venous thrombosis. 58yo HIV pt with acute cellulitis, would benefit from observation with IV antiobiotics given comorbidities and risk for progressive infection. Scribe Attestation: Documented by Kirsten Mcelroy, acting as a scribe for Amy Molina MD Provider Scribe Attestation: All medical record entries made by the Scribe were at my direction and personally dictated by me. I have reviewed the chart and agree that the record accurately reflects my personal performance of the history, physical exam, medical decision making, and the department course for this patient. I have also personally directed, reviewed, and agree with the discharge instructions and disposition. Disposition - Clinical Impression Clinical Impression: Bilateral cellulitis of lower leg Discussed With DrKallie: Anoop Smith Counseled Patient/Family Regarding: Studies Performed, Diagnosis - Disposition Disposition Time: 20:30 Condition: FAIR - Pt Status Changed To: Hospital Disposition Of: Observation - POA Present On Arrival: None
[2018-06-06 16:43] LABS: BASO % 0.4 % (0.0-2.0); EOS % 0.7 % (0.0-4.0); HEMOGLOBIN 12.1 g/dL (12.0-18.0); LYMPH # 1.7 K/uL (1.0-4.3); LYMPH % 27.3 % (20.0-40.0); MEAN CELL VOLUME 91.9 fl (80.0-94.0); MEAN CORPUSCULAR HEMOGLOBIN 29.6 pg (27.0-31.0); MEAN CORPUSCULAR HGB CONC 32.2 g/dL (33.0-37.0); MEAN PLATELET VOLUME 8.7 fl (7.2-11.7); MONO # 0.6 K/uL (0.0-0.8); MONO % 9.4 % (0.0-10.0); NEUT # 3.9 K/uL (1.8-7.0); NEUT % 62.2 % (50.0-75.0); NRBC % 0.1 % (0.0-0.0); RBC 4.08 Mil/uL (4.40-5.90); RED CELL DISTRIBUTION WIDTH 15.4 % (11.5-14.5); WHITE BLOOD COUNT 6.3 K/uL (4.8-10.8)
[2018-06-06 16:48] LABS: INR 1.2; PROTHROMBIN TIME 13.2 Seconds (9.8-13.1)
[2018-06-06 16:51] LABS: PARTIAL THROMBOPLASTIN TIME 33.3 Seconds (25.6-37.1)
[2018-06-06 16:53] LABS: ALT/SGPT 42 U/L (21-72); AST/SGOT 41 U/L (17-59); BLOOD UREA NITROGEN 19 mg/dl (9-20); CALCIUM 8.9 mg/dL (8.4-10.2); GFR NON-AFRICAN AMERICAN > 60
[2018-06-06] MEDS ORDERED: Piperacillin/Tazobact 3.375 GM in Sodium Chloride 0.9% 100 ML IVPB STA (17:40)
--- NOTE | 2018-06-06 17:42 | US ---
Date of service: 06/06/2018 PROCEDURE: Bilateral lower extremity venous duplex Doppler. HISTORY: bilateral leg swelling obesity COMPARISON: None available. TECHNIQUE: Bilateral common femoral, superficial femoral, popliteal and posterior tibial veins were evaluated. Flow was assessed with color Doppler, compressibility, assessment of phasic flow and augmentation response. FINDINGS: COMMON FEMORAL VEIN: Right CFV: Unremarkable. Left CFV: Unremarkable. SUPERFICIAL FEMORAL VEIN: Right SFV: Unremarkable. Left SFV: Unremarkable. POPLITEAL VEIN: Right Popliteal: Unremarkable. Left Popliteal: Unremarkable. POSTERIOR TIBIAL VEIN: Right PTV: Unremarkable. Left PTV: Unremarkable. OTHER FINDINGS: None. IMPRESSION: No evidence of deep venous thrombosis.
--- NOTE | 2018-06-06 17:44 | RAD ---
Date of service: 06/06/2018 PROCEDURE: CHEST RADIOGRAPH, 1 VIEW HISTORY: leg edema COMPARISON: 02/22/2018. FINDINGS: LUNGS: Clear. PLEURA: No pneumothorax or pleural fluid seen. CARDIOVASCULAR: No aortic atherosclerotic calcification present. No radiographic findings to suggest acute or significant cardiovascular disease. OSSEOUS STRUCTURES: No significant abnormalities. VISUALIZED UPPER ABDOMEN: Normal. OTHER FINDINGS: None. IMPRESSION: No active disease.No significant interval change compared to the prior examination(s).
--- NOTE | 2018-06-06 17:46 | RAD ---
Date of service: 06/06/2018 PROCEDURE: Bilateral ankles HISTORY: fall edema exquisite pain COMPARISON: None TECHNIQUE: Standard protocol for this study/examination. FINDINGS: Diffuse lower extremity edema about visualize caps ankles and feet. No significant/acute osseous, articular abnormalities. IMPRESSION: Diffuse bilaterally symmetrical lower extremity swelling. No acute/significant osseous findings.
[2018-06-06] MEDS ORDERED: Sodium Chloride 0.9% 500 ML IV STA (18:02)
[2018-06-06] MEDS ORDERED: Vancomycin 1 g Inj ONE (18:42)
[2018-06-06] MEDS ORDERED: Albuterol HFA 90 mcg/actuation (8 g) IH PRN (18:44)
--- NOTE | 2018-06-06 19:13 | CP.PCM.HP ---
<Anabela Marie - Last Filed: 06/06/18 20:38> History of Present Illness - History of Present Illness History of Present Illness: This is 58 y/o male with PMH of COPD, asymptomatic HIV (On ART), Hep C (treated), substance abuse, hypertension, depression and Morbid obesity admitted to [facility] for evaluation and treatment of b/l lower extremities cellulites. Patient presented to ER c/o 3 days hx of worsening lower b/l LEs pain, swelling and erythema. Patient is constant, 10/10 with walking, no alleviating or aggravating factors, associated with subjective fever, denies any vomiting, diarrhea, chest pain. Patient has severe COPD, reporting SOB/cough which is his baseline. Seen by PMD today who recommended to come to ER. Patient is taking methadone and following up with Methadone clinic in [place]. PMD: Dr. Dennis PMH: COPD, asymptomatic HIV (On ART), Hep C (treated), substance abuse, hypertension and Morbid obesity PSH: Appendectomy Allg: NKDA Meds: Albuterol, Klonopin 0.5mg daily, Tivicay 50mg daily, Truvada PO daily, Enalapril 5mg daily, Advair, Montelukast 10mg, Seroquel 100mg, Zoloft 100mg daily, Spiriva, and Methadone 34mg daily (Confirmed with the clinic in last v isit # [phone]) FH: Mother, decreased, hx with COPD. Father with multiple strokes, decreased SH: Patient lives with a girlfriend, Reports good family support: Brothers and sisters live in same town. Denies any recent use of alcohol or illicit drug use. smokes 2 cig/day currently ROS: As per HPI ER course: Afebrile, HR 110, RR 16, 99/72, Spo2 96 CBC: no wbc, stable h/h CMP: wnl U/s b/l LEs: No DVT CXR: no active disease Ankle xray: no osseous findings, diffuse b/l swelling S/p vanco and Zosyn IVF and pain management Present on Admission - Present on Admission Any Indicators Present on Admission: No Past Patient History - Past Medical History & Family History Past Medical History?: Yes - Past Social History Alcohol: None Drugs: Opiates (history of opiate abuse; now on methadone) - CARDIAC Hx Hypertension: Yes - PULMONARY Hx Asthma: Yes Hx Chronic Obstructive Pulmonary Disease (COPD): Yes - HEENT Hx HEENT Problems: No - RENAL Hx Chronic Kidney Disease: No - ENDOCRINE/METABOLIC Hx Endocrine Disorders: Yes Hx Diabetes Mellitus Type 2: Yes (hx, not current) - HEMATOLOGICAL/ONCOLOGICAL Hx Human Immunodeficiency Virus (HIV): Yes - INTEGUMENTARY Hx Dermatological Problems: Yes Other/Comment: rashes - MUSCULOSKELETAL/RHEUMATOLOGICAL Hx Musculoskeletal Disorders: Yes (generalized body pain.) Hx Falls: Yes - GASTROINTESTINAL Hx Gastrointestinal Disorders: No - GENITOURINARY/GYNECOLOGICAL Hx Genitourinary Disorders: No - PSYCHIATRIC Hx Anxiety: Yes Hx Depression: Yes - SURGICAL HISTORY Hx Appendectomy: Yes - ANESTHESIA Hx Anesthesia: Yes Hx Anesthesia Reactions: No Meds Allergies/Adverse Reactions: Allergies Allergy/AdvReac Type Severity Reaction Status Date / Time No Known Allergies Allergy Verified 06/06/18 15:21 Physical Exam - Constitutional Appears: No Acute Distress Additional comments: Morbidly obese - Head Exam Head Exam: NORMAL INSPECTION - Eye Exam Eye Exam: EOMI, Normal appearance, PERRL Pupil Exam: NORMAL ACCOMODATION - ENT Exam ENT Exam: Mucous Membranes Moist - Neck Exam Neck exam: Positive for: Normal Inspection - Respiratory Exam Respiratory Exam: Decreased Breath Sounds, Rhonchi (b/l ), NORMAL BREATHING PATTERN. absent: Accessory Muscle Use, Chest Wall Tenderness, Respiratory Distress - Cardiovascular Exam Cardiovascular Exam: REGULAR RHYTHM, +S1, +S2 - GI/Abdominal Exam GI & Abdominal Exam: Normal Bowel Sounds, Soft. absent: Tenderness Additional comments: obese abdomen - Extremities Exam Additional comments: b/l LEs: + Tenderness, +1 edema and Erythema from feet to below knees, warmth, induration and blanching edema (L>R) healed abrasions on knees without purulent drainage - Back Exam Back exam: NORMAL INSPECTION. absent: CVA tenderness (L), CVA tenderness (R) - Neurological Exam Neurological exam: Alert, CN II-XII Intact, Oriented x3 - Psychiatric Exam Psychiatric exam: Normal Affect - Skin Skin Exam: Rash (chronic ) Additional comments: Chronic diffuse body rashes, spider angiomas appreciated Results - Vital Signs Recent Vital Signs: Last Vital Signs Temp 98.7 F 06/06/18 15:21 Pulse 110 H 06/06/18 15:21 Resp 16 06/06/18 15:21 BP 99/72 L 06/06/18 15:21 Pulse Ox 96 06/06/18 18:59 - Labs Result Diagrams: 06/06/18 16:10 06/06/18 16:10 Labs: Laboratory Results - last 24 hr 06/06/18 06/06/18 06/06/18 16:00 16:06 16:10 WBC 6.3 RBC 4.08 L Hgb 12.1 Hct 37.5 MCV 91.9 MCH 29.6 MCHC 32.2 L RDW 15.4 H Plt Count 89 L MPV 8.7 Neut % (Auto) 62.2 Lymph % (Auto) 27.3 [place] % (Auto) 9.4 Eos % (Auto) 0.7 Baso % (Auto) 0.4 Neut # (Auto) 3.9 Lymph # (Auto) 1.7 [place] # (Auto) 0.6 Eos # (Auto) 0.0 Baso # (Auto) 0.0 PT INR APTT Sodium Potassium Chloride Carbon Dioxide Anion Gap BUN Creatinine Est GFR ( Amer) Est GFR (Non-Af Amer) Random Glucose Lactic Acid 0.9 Calcium Total Bilirubin AST ALT Alkaline Phosphatase Total Protein Albumin Globulin Albumin/Globulin Ratio TSH 3rd Generation BBK History Checked No verified bt 06/06/18 06/06/18 16:10 16:10 WBC RBC Hgb Hct MCV MCH MCHC RDW Plt Count MPV Neut % (Auto) Lymph % (Auto) [place] % (Auto) Eos % (Auto) Baso % (Auto) Neut # (Auto) Lymph # (Auto) [place] # (Auto) Eos # (Auto) Baso # (Auto) PT 13.2 H INR 1.2 APTT 33.3 Sodium 137 Potassium 3.9 Chloride 103 Carbon Dioxide 25 Anion Gap 13 BUN 19 Creatinine 0.8 Est GFR ( Amer) > 60 Est GFR (Non-Af Amer) > 60 Random Glucose 104 Lactic Acid Calcium 8.9 Total Bilirubin 1.0 AST 41 ALT 42 Alkaline Phosphatase 70 Total Protein 8.0 Albumin 4.0 Globulin 4.0 H Albumin/Globulin Ratio 1.0 TSH 3rd Generation 2.13 BBK History Checked Assessment & Plan - Assessment and Plan (Free Text) Assessment: A/P: 58 y/o male with PMH of COPD, asymptomatic HIV (On ART), Hep C (treated), substance abuse, hypertension, depression and Morbid obesity admitted to [facility] for evaluation and treatment of b/l lower extremities cellulitis B/l Lower Extremities Cellulitis - Acute - Afebrile, no WBC - U/s b/l LEs: No DVT - Ankle xray: no osseous findings, diffuse b/l swelling - S/p Vanco and Zosyn in ER - C/w Vanco 1gm Q12H, Day#0 - C/w Zosyn 3.3gm Q6H, Day#0 - Consider ID consult - Follow up Cultures COPD - chronic - C/w Home meds: Albuterol HFA 2 puff Q6H PRN, Advair, Spiriva 18mcg daily, Montelukast 10mg daily - Monitor respiratory status: C/w NC as needed - 2L supplemental O2 via nasal cannula to keep O2 sat above 92% Human immunodeficiency virus (HIV) -Chronic, Asymptomatic -01/04/18: CD4 count 672, viral load < 20, -continue home medications: Tivicay 50mg daily, Truvada PO daily, compliant with medications (Pharmacy was called and confirmed) -Dr. Dennis is aware History of Hepatitis C -Patient was treated in past, last treatment was 1 year ago -no further workup required Hypertension -Chronic, uncontrolled -continue home medication: vasotec 5mg PO daily - monitor BP History of substance abuse - History of percocet and heroin abuse - continue Methadone 35mg daily ([facility] methadone clinic was called and confirmed in last visit, 4 months ago, dose is 34mg PO QD, they approved giving 35mg as we only have doses in multiples of 5mg # [phone]) Mood Disorders -patient follows regularly with psychiatrist at [facility] health clinic across hospital -continue home medications (confirmed with pharmacy): Zoloft 100mg PO Q12H, Seroquel PO 100mg QD, klonopin 0.5mg PO Q12H -denies SI/HI at this time DVT Prophylaxis -Lovenox 40mg SC Full Code Emergency Contact# [phone] (Sister, Molly Moralez) <Anoop Smith D - Last Filed: 06/07/18 10:47> Results - Vital Signs Recent Vital Signs: Last Vital Signs Temp 97.7 F 06/07/18 08:01 Pulse 69 06/07/18 08:01 Resp 18 06/07/18 08:01 BP 115/62 06/07/18 08:01 Pulse Ox 97 06/07/18 08:01 - Labs Result Diagrams: 06/07/18 05:50 06/07/18 05:50 Labs: Laboratory Results - last 24 hr 06/06/18 06/06/18 06/06/18 16:00 16:06 16:10 WBC 6.3 RBC 4.08 L Hgb 12.1 Hct 37.5 MCV 91.9 MCH 29.6 MCHC 32.2 L RDW 15.4 H Plt Count 89 L MPV 8.7 Neut % (Auto) 62.2 Lymph % (Auto) 27.3 [place] % (Auto) 9.4 Eos % (Auto) 0.7 Baso % (Auto) 0.4 Neut # (Auto) 3.9 Lymph # (Auto) 1.7 [place] # (Auto) 0.6 Eos # (Auto) 0.0 Baso # (Auto) 0.0 PT INR APTT Sodium Potassium Chloride Carbon Dioxide Anion Gap BUN Creatinine Est GFR ( Amer) Est GFR (Non-Af Amer) POC Glucose (mg/dL) Random Glucose Lactic Acid 0.9 Calcium Total Bilirubin AST ALT Alkaline Phosphatase Total Protein Albumin Globulin Albumin/Globulin Ratio TSH 3rd Generation Vancomycin Trough Blood Type A POSITIVE Blood Type Confirm Antibody Screen Negative BBK History Checked No verified bt 06/06/18 06/06/18 06/06/18 16:10 16:10 18:01 WBC RBC Hgb Hct MCV MCH MCHC RDW Plt Count MPV Neut % (Auto) Lymph % (Auto) [place] % (Auto) Eos % (Auto) Baso % (Auto) Neut # (Auto) Lymph # (Auto) [place] # (Auto) Eos # (Auto) Baso # (Auto) PT 13.2 H INR 1.2 APTT 33.3 Sodium 137 Potassium 3.9 Chloride 103 Carbon Dioxide 25 Anion Gap 13 BUN 19 Creatinine 0.8 Est GFR ( Amer) > 60 Est GFR (Non-Af Amer) > 60 POC Glucose (mg/dL) Random Glucose 104 Lactic Acid Calcium 8.9 Total Bilirubin 1.0 AST 41 ALT 42 Alkaline Phosphatase 70 Total Protein 8.0 Albumin 4.0 Globulin 4.0 H Albumin/Globulin Ratio 1.0 TSH 3rd Generation 2.13 Vancomycin Trough Blood Type Blood Type Confirm A POSITIVE Antibody Screen BBK History Checked 06/06/18 06/06/18 06/07/18 19:59 20:14 05:50 WBC 4.8 RBC 3.77 L Hgb 11.2 L Hct 34.2 L MCV 90.9 MCH 29.8 MCHC 32.8 L RDW 15.2 H Plt Count 75 L MPV 8.4 Neut % (Auto) 40.6 L Lymph % (Auto) 45.7 H [place] % (Auto) 10.1 H Eos % (Auto) 2.9 Baso % (Auto) 0.7 Neut # (Auto) 2.0 Lymph # (Auto) 2.2 [place] # (Auto) 0.5 Eos # (Auto) 0.1 Baso # (Auto) 0.0 PT INR APTT Sodium Potassium Chloride Carbon Dioxide Anion Gap BUN Creatinine Est GFR ( Amer) Est GFR (Non-Af Amer) POC Glucose (mg/dL) 76 Random Glucose Lactic Acid Calcium Total Bilirubin AST ALT Alkaline Phosphatase Total Protein Albumin Globulin Albumin/Globulin Ratio TSH 3rd Generation Vancomycin Trough < 5.0 L Blood Type Blood Type Confirm Antibody Screen BBK History Checked 06/07/18 05:50 WBC RBC Hgb Hct MCV MCH MCHC RDW Plt Count MPV Neut % (Auto) Lymph % (Auto) [place] % (Auto) Eos % (Auto) Baso % (Auto) Neut # (Auto) Lymph # (Auto) [place] # (Auto) Eos # (Auto) Baso # (Auto) PT INR APTT Sodium 139 Potassium 3.8 Chloride 105 Carbon Dioxide 28 Anion Gap 10 BUN 20 Creatinine 1.1 Est GFR ( Amer) > 60 Est GFR (Non-Af Amer) > 60 POC Glucose (mg/dL) Random Glucose 122 H Lactic Acid Calcium 8.2 L Total Bilirubin AST ALT Alkaline Phosphatase Total Protein Albumin Globulin Albumin/Globulin Ratio TSH 3rd Generation Vancomycin Trough Blood Type Blood Type Confirm Antibody Screen BBK History Checked Attending/Attestation - Attestation I have personally seen and examined this patient.: Yes I have fully participated in the care of the patient.: Yes I have reviewed all pertinent clinical information: Yes Notes (Text): 06/07/18 10:46 Patient seen and examined with resident. Case discussed and agreed with assessment and plan of management.
[2018-06-06] MEDS ORDERED: Piperacillin/Tazobact 3.375 gm Inj IVPB ONE (19:50)
[2018-06-06] MEDS ORDERED: Albuterol-Ipratrop 3 mg / 0.5 (3 ml) UD INH PRN (20:28)
[2018-06-06] MEDS ORDERED: Patient's Own Med (Budesonide/Formoterol Fumarate [Symbicort 160-4.5 Mcg Inhaler] 2 PUFF) IH SCH (21:00)
[2018-06-06] MEDS ORDERED: Benzoin Compund Tincture 30 ML TP ONE (22:22)
[2018-06-06] MEDS: Emtricitabine-Tenofovir 200 mg-300 mg Tab PO SCH (22:28)
[2018-06-06] MEDS: Piperacillin/Tazobact 3.375 GM in Sodium Chloride 0.9% 100 ML IVPB SCH (23:34)
[2018-06-07] MEDS: Piperacillin/Tazobact 3.375 GM in Sodium Chloride 0.9% 100 ML IVPB SCH ×4 (04:34→23:00)
[2018-06-07 06:05] LABS: BASO % 0.7 % (0.0-2.0); EOS # 0.1 K/uL (0.0-0.7); EOS % 2.9 % (0.0-4.0); HEMOGLOBIN 11.2 g/dL (12.0-18.0); LYMPH # 2.2 K/uL (1.0-4.3); LYMPH % 45.7 % (20.0-40.0); MEAN CELL VOLUME 90.9 fl (80.0-94.0); MEAN CORPUSCULAR HEMOGLOBIN 29.8 pg (27.0-31.0); MEAN CORPUSCULAR HGB CONC 32.8 g/dL (33.0-37.0); MEAN PLATELET VOLUME 8.4 fl (7.2-11.7); MONO # 0.5 K/uL (0.0-0.8); MONO % 10.1 % (0.0-10.0); NEUT % 40.6 % (50.0-75.0); RBC 3.77 Mil/uL (4.40-5.90); RED CELL DISTRIBUTION WIDTH 15.2 % (11.5-14.5); WHITE BLOOD COUNT 4.8 K/uL (4.8-10.8)
[2018-06-07 06:25] LABS: BLOOD UREA NITROGEN 20 mg/dl (9-20); CALCIUM 8.2 mg/dL (8.4-10.2); GFR NON-AFRICAN AMERICAN > 60
--- NOTE | 2018-06-07 08:53 | CARD ---
APPROVED REPORT Date of service: 06/06/2018 EKG Measurement Heart [id number] <Conclusion> Normal sinus rhythm Incomplete right bundle branch block Prolonged QT Abnormal ECG
[2018-06-07] MEDS ORDERED: Patient's Own Med (Torsemide [Demadex] 5 mg) PO SCH (09:00)
[2018-06-07] MEDS: Enoxaparin 40 mg Syringe SC SCH (09:56)
[2018-06-07] MEDS: Pantoprazole 40 mg EC Tab PO SCH (09:56)
[2018-06-07] MEDS: Tiotropium 18 mcg Cap For Inhalation IH SCH (09:58)
--- NOTE | 2018-06-07 11:01 | CP.PCM.PN ---
<Roxana Polo - Last Filed: 06/07/18 11:31> Subjective - Date & Time of Evaluation Date of Evaluation: 06/07/18 Time of Evaluation: 11:01 - Subjective Subjective: 58M patient seen and evaluated at bedside, resting comfortably. Afebrile, no acute events overnight. Patient reports pain to b/l lower extremities, with pain worse in the LLE. Patient admits to living with a pet cat, however cannot recall cat scratching him. Denies N/V/F/SOB/CP/Chills. Objective - Vital Signs/Intake and Output Vital Signs (last 24 hours): Temp Pulse Resp BP Pulse Ox 97.7 F 69 18 115/62 97 06/07/18 08:01 06/07/18 08:01 06/07/18 08:01 06/07/18 08:01 06/07/18 08:01 - Medications Medications: Current Medications Acetaminophen (Tylenol 325mg Tab) 650 mg PO Q6 PRN PRN Reason: Fever >100.4 F Acetaminophen (Tylenol 325mg Tab) 650 mg PO Q4 PRN PRN Reason: Pain, Mild (1-3) Albuterol (Ventolin Hfa 90 Mcg/Actuation (8 G)) 2 puff IH Q6 PRN PRN Reason: Shortness of Breath Albuterol/Ipratropium (Duoneb 3 Mg/0.5 Mg (3 Ml) Ud) 3 ml INH RQ6 PRN PRN Reason: Shortness of Breath Clonazepam (Klonopin) 0.5 mg PO Q12 [facility] Last Admin: 06/07/18 09:54 Dose: 0.5 mg Dolutegravir Sodium (Tivicay) 50 mg PO HS [facility]; Protocol Last Admin: 06/06/18 22:28 Dose: 50 mg Emtricitabine/Tenofovir (Truvada 200 Mg-300 Mg) 1 tab PO HS [facility]; Protocol Last Admin: 06/06/18 22:28 Dose: 1 tab Enalapril Maleate (Vasotec) 5 mg PO DAILY [facility] Last Admin: 06/07/18 09:58 Dose: 5 mg Enoxaparin Sodium (Lovenox) 40 mg SC DAILY [facility]; Protocol Last Admin: 06/07/18 09:56 Dose: 40 mg Gabapentin (Neurontin) 300 mg PO Q12 PRN PRN Reason: neuropathic pain Last Admin: 06/07/18 09:54 Dose: 300 mg Home Med (Budesonide/Formoterol Fumarate [Symbicort 160-4.5 Mcg Inhaler]) 2 puff IH Q12 [facility] Vancomycin HCl 1 gm/ Sodium (Chloride) 250 mls @ 166.667 mls/hr IVPB Q12 [facility]; Protocol Last Admin: 06/07/18 05:48 Dose: 166.667 mls/hr Piperacillin Sod/Tazobactam (Sod 3.375 gm/ Sodium Chloride) 100 mls @ 100 mls/hr IVPB Q6 [facility]; Protocol Last Admin: 06/07/18 10:01 Dose: 100 mls/hr Montelukast Sodium (Singulair) 10 mg PO DAILY [facility] Last Admin: 06/07/18 09:57 Dose: 10 mg Ondansetron HCl (Zofran Inj) 4 mg IVP Q6 PRN PRN Reason: Nausea/Vomiting Pantoprazole Sodium (Protonix Ec Tab) 40 mg PO DAILY [facility] Last Admin: 06/07/18 09:56 Dose: 40 mg Quetiapine Fumarate (Seroquel) 100 mg PO HS [facility] Last Admin: 06/06/18 22:28 Dose: 100 mg Sertraline HCl (Zoloft) 100 mg PO Q12 [facility] Last Admin: 06/07/18 09:54 Dose: 100 mg Tiotropium [place] (Spiriva) 18 mcg IH DAILY [facility] Last Admin: 06/07/18 09:58 Dose: 18 mcg Tizanidine HCl (Zanaflex) 2 mg PO Q12 PRN PRN Reason: Muscle spasm Last Admin: 06/07/18 01:32 Dose: 2 mg Torsemide (Demadex) 5 mg PO DAILY [facility] Last Admin: 06/07/18 09:55 Dose: 5 mg - Labs Labs: 06/07/18 05:50 06/07/18 05:50 PT 13.2 Seconds (9.8-13.1) H 06/06/18 16:10 INR 1.2 06/06/18 16:10 APTT 33.3 Seconds (25.6-37.1) 06/06/18 16:10 - Constitutional Appears: No Acute Distress - Head Exam Head Exam: ATRAUMATIC, NORMOCEPHALIC - Eye Exam Eye Exam: Normal appearance, PERRL - Respiratory Exam Respiratory Exam: NORMAL BREATHING PATTERN - Cardiovascular Exam Cardiovascular Exam: REGULAR RHYTHM - GI/Abdominal Exam GI & Abdominal Exam: Soft, Normal Bowel Sounds - Extremities Exam Extremities Exam: Normal Capillary Refill, Pedal Edema, Tenderness. absent: Calf Tenderness Additional comments: Streaking cellulitis noted to b/l lower extremities, L>R with associated warmth to erythematous areas. No purulence, no drainage, no weeping, no malodor appreciated. R lower extremity cellulitis, resolving. - Neurological Exam Neurological Exam: Alert, Awake - Psychiatric Exam Psychiatric exam: Normal Affect - Skin Skin Exam: Erythema, Warm Assessment and Plan - Assessment and Plan (Free Text) Assessment: 58M with PMH of COPD, HTN, HIV, Hep C, substance abuse, depression, and obesity, admitted for evaluation and treatment of b/l LE cellulitis, L > R. Plan: 1) B/L LE cellulitis - VSS, WBC 4.8 - U/s b/l lower extremities: No evidence of DVT - B/L Ankle xray: no osseous findings, diffuse b/l swelling - C/w Vanco 1gm Q12H, Day#1 and Zosyn 3.3gm Q6H, Day#1 - F/U blood cx - F/u urine cx 2) COPD - chronic - C/w Home meds; Albuterol HFA 2 puff Q6H PRN, Advair, Spiriva 18mcg daily, Montelukast 10mg daily - 2L supplemental O2 via nasal cannula to keep O2 sat above 92% 3) Human immunodeficiency virus (HIV) - Chronic, Asymptomatic - 01/04/18: CD4 count 672, viral load < 20, - C/w Home meds; Tivicay 50mg daily, Truvada PO daily, compliant with medications (confirmed with pharmacy) - Dr. Dennis is aware 4) Hepatitis C -Patient was treated in past, last treatment was 1 year ago -no further workup required 5) HTN -Chronic, uncontrolled -continue home medication: vasotec 5mg PO daily - monitor BP 6) Substance abuse - Hx of percocet and heroin abuse - C/w Methadone 35mg daily ([facility] methadone clinic was called and confirmed in last visit, 4 months ago, dose is 34mg PO QD, they approved giving 35mg as we only have doses in multiples of 5mg #[phone]) 7) Mood Disorders -patient follows regularly with psychiatrist at [facility]-mental health clinic across hospital -C/w Home meds; Zoloft 100mg PO Q12H, Seroquel PO 100mg QD, klonopin 0.5mg PO Q12H (confirmed with pharmacy) 8) DVT Prophylaxis -Lovenox 40mg SC 9) Full Code <Vidya Wahl - Last Filed: 06/08/18 10:05> Objective - Vital Signs/Intake and Output Vital Signs (last 24 hours): Temp Pulse Resp BP Pulse Ox 97.7 F 84 20 129/74 97 06/08/18 08:00 06/08/18 08:00 06/08/18 08:00 06/08/18 08:00 06/08/18 08:00 - Medications Medications: Current Medications Acetaminophen (Tylenol 325mg Tab) 650 mg PO Q6 PRN PRN Reason: Fever >100.4 F Acetaminophen (Tylenol 325mg Tab) 650 mg PO Q4 PRN PRN Reason: Pain, Mild (1-3) Last Admin: 06/07/18 23:38 Dose: 650 mg Albuterol (Ventolin Hfa 90 Mcg/Actuation (8 G)) 2 puff IH Q6 PRN PRN Reason: Shortness of Breath Last Admin: 06/07/18 21:43 Dose: 2 inh Albuterol/Ipratropium (Duoneb 3 Mg/0.5 Mg (3 Ml) Ud) 3 ml INH RQ6 PRN PRN Reason: Shortness of Breath Clonazepam (Klonopin) 0.5 mg PO Q12 [facility] Last Admin: 06/08/18 09:16 Dose: 0.5 mg Dolutegravir Sodium (Tivicay) 50 mg PO HS [facility]; Protocol Last Admin: 06/07/18 23:30 Dose: 50 mg Emtricitabine/Tenofovir (Truvada 200 Mg-300 Mg) 1 tab PO HS [facility]; Protocol Last Admin: 06/07/18 21:46 Dose: 1 tab Enalapril Maleate (Vasotec) 5 mg PO DAILY [facility] Last Admin: 06/08/18 09:14 Dose: 5 mg Enoxaparin Sodium (Lovenox) 40 mg SC DAILY [facility]; Protocol Last Admin: 06/08/18 09:14 Dose: 40 mg Gabapentin (Neurontin) 300 mg PO Q12 PRN PRN Reason: neuropathic pain Last Admin: 06/07/18 23:18 Dose: 300 mg Vancomycin HCl 1 gm/ Sodium (Chloride) 250 mls @ 166.667 mls/hr IVPB Q12 [facility]; Protocol Last Admin: 06/07/18 21:48 Dose: 166.667 mls/hr Piperacillin Sod/Tazobactam (Sod 3.375 gm/ Sodium Chloride) 100 mls @ 100 mls/hr IVPB Q6 [facility]; Protocol Last Admin: 06/08/18 09:12 Dose: 100 mls/hr Montelukast Sodium (Singulair) 10 mg PO DAILY [facility] Last Admin: 06/08/18 09:14 Dose: 10 mg Morphine Sulfate (Morphine) 4 mg IVP Q6 PRN PRN Reason: Pain, severe (8-10) Last Admin: 06/08/18 04:16 Dose: 4 mg Ondansetron HCl (Zofran Inj) 4 mg IVP Q6 PRN PRN Reason: Nausea/Vomiting Pantoprazole Sodium (Protonix Ec Tab) 40 mg PO DAILY [facility] Last Admin: 06/08/18 09:16 Dose: 40 mg Quetiapine Fumarate (Seroquel) 100 mg PO HS [facility] Last Admin: 06/07/18 21:45 Dose: 100 mg Fluticasone/Salmeterol (Advair Diskus 250/50) 1 puff IH Q12 [facility] Last Admin: 06/08/18 09:13 Dose: 1 puff Sertraline HCl (Zoloft) 100 mg PO Q12 [facility] Last Admin: 06/08/18 09:15 Dose: 100 mg Tiotropium [place] (Spiriva) 18 mcg IH DAILY [facility] Last Admin: 06/07/18 09:58 Dose: 18 mcg Tizanidine HCl (Zanaflex) 2 mg PO Q12 PRN PRN Reason: Muscle spasm Last Admin: 06/07/18 01:32 Dose: 2 mg Torsemide (Demadex) 5 mg PO DAILY [facility] Last Admin: 06/07/18 09:55 Dose: 5 mg - Labs Labs: 06/08/18 07:00 06/07/18 05:50 PT 13.2 Seconds (9.8-13.1) H 06/06/18 16:10 INR 1.2 06/06/18 16:10 APTT 33.3 Seconds (25.6-37.1) 06/06/18 16:10 Attending/Attestation - Attestation I have personally seen and examined this patient.: Yes I have fully participated in the care of the patient.: Yes I have reviewed all pertinent clinical information, including history, physical exam and plan: Yes Notes (Text): 06/08/18 10:04 Seen, examined, and discussed with resident. Agree with findings and plan as above.
[2018-06-07] MEDS: Morphine 4 MG/ML VIAL IVP PRN ×2 (16:06→22:07)
[2018-06-07] MEDS: Emtricitabine-Tenofovir 200 mg-300 mg Tab PO SCH (21:46)
[2018-06-07] MEDS ORDERED: TIVICAY 50 MG PO SCH (22:00)
[2018-06-07] MEDS: Fluticasone-Salmeterol 250-50mcg Diskus IH SCH (22:00)
[2018-06-07] MEDS ORDERED: Morphine 4 MG/ML VIAL ONE (22:06)
[2018-06-08 00:49] VITALS: RESP 20
[2018-06-08] MEDS: Morphine 4 MG/ML VIAL IVP PRN ×2 (04:16→10:51)
[2018-06-08 08:01] VITALS: BP 129/74; PULSE 84; TEMP 97.7; O2SAT 97
[2018-06-08 08:05] LABS: BASO % 0.9 % (0.0-2.0); EOS # 0.1 K/uL (0.0-0.7); EOS % 3.4 % (0.0-4.0); HEMOGLOBIN 11.4 g/dL (12.0-18.0); LYMPH # 1.8 K/uL (1.0-4.3); LYMPH % 46.5 % (20.0-40.0); MEAN CELL VOLUME 91.2 fl (80.0-94.0); MEAN CORPUSCULAR HEMOGLOBIN 29.7 pg (27.0-31.0); MEAN CORPUSCULAR HGB CONC 32.5 g/dL (33.0-37.0); MEAN PLATELET VOLUME 8.4 fl (7.2-11.7); MONO # 0.3 K/uL (0.0-0.8); MONO % 8.5 % (0.0-10.0); NEUT # 1.6 K/uL (1.8-7.0); NEUT % 40.7 % (50.0-75.0); RBC 3.83 Mil/uL (4.40-5.90); RED CELL DISTRIBUTION WIDTH 15.1 % (11.5-14.5); WHITE BLOOD COUNT 3.9 K/uL (4.8-10.8)
[2018-06-08] MEDS: Piperacillin/Tazobact 3.375 GM in Sodium Chloride 0.9% 100 ML IVPB SCH (09:12)
[2018-06-08] MEDS: Fluticasone-Salmeterol 250-50mcg Diskus IH SCH (09:13)
[2018-06-08] MEDS: Enoxaparin 40 mg Syringe SC SCH (09:14)
[2018-06-08] MEDS: Pantoprazole 40 mg EC Tab PO SCH (09:16)
--- NOTE | 2018-06-08 09:21 | CP.PCM.DIS ---
<Pipe Lopes - Last Filed: 06/08/18 09:13> Provider - Provider Date of Admission: 06/06/18 18:00 Attending physician: Anoop Smith MD Time Spent in preparation of Discharge (in minutes): 15 Diagnosis - Discharge Diagnosis (1) Bilateral cellulitis of lower leg Status: Acute Hospital Course - Lab Results Lab Results: Micro Results 06/06/18 17:30 Blood Blood Culture - Preliminary NO GROWTH AFTER 24 HOURS 06/06/18 17:30 Blood Blood Culture - Preliminary NO GROWTH AFTER 24 HOURS Most Recent Lab Values WBC 3.9 K/uL (4.8-10.8) L 06/08/18 07:00 RBC 3.83 Mil/uL (4.40-5.90) L 06/08/18 07:00 Hgb 11.4 g/dL (12.0-18.0) L 06/08/18 07:00 Hct 34.9 % (35.0-51.0) L 06/08/18 07:00 MCV 91.2 fl (80.0-94.0) 06/08/18 07:00 MCH 29.7 pg (27.0-31.0) 06/08/18 07:00 MCHC 32.5 g/dL (33.0-37.0) L 06/08/18 07:00 RDW 15.1 % (11.5-14.5) H 06/08/18 07:00 Plt Count 86 K/uL (130-400) L 06/08/18 07:00 MPV 8.4 fl (7.2-11.7) 06/08/18 07:00 Neut % (Auto) 40.7 % (50.0-75.0) L 06/08/18 07:00 Lymph % (Auto) 46.5 % (20.0-40.0) H 06/08/18 07:00 Rush % (Auto) 8.5 % (0.0-10.0) 06/08/18 07:00 Eos % (Auto) 3.4 % (0.0-4.0) 06/08/18 07:00 Baso % (Auto) 0.9 % (0.0-2.0) 06/08/18 07:00 Neut # (Auto) 1.6 K/uL (1.8-7.0) L 06/08/18 07:00 Lymph # (Auto) 1.8 K/uL (1.0-4.3) 06/08/18 07:00 Rush # (Auto) 0.3 K/uL (0.0-0.8) 06/08/18 07:00 Eos # (Auto) 0.1 K/uL (0.0-0.7) 06/08/18 07:00 Baso # (Auto) 0.0 K/uL (0.0-0.2) 06/08/18 07:00 PT 13.2 Seconds (9.8-13.1) H 06/06/18 16:10 INR 1.2 06/06/18 16:10 APTT 33.3 Seconds (25.6-37.1) 06/06/18 16:10 Sodium 139 mmol/l (132-148) 06/07/18 05:50 Potassium 3.8 MMOL/L (3.6-5.0) 06/07/18 05:50 Chloride 105 mmol/L (98-107) 06/07/18 05:50 Carbon Dioxide 28 mmol/L (22-30) 06/07/18 05:50 Anion Gap 10 (10-20) 06/07/18 05:50 BUN 20 mg/dl (9-20) 06/07/18 05:50 Creatinine 1.1 mg/dl (0.8-1.5) 06/07/18 05:50 Est GFR ( Amer) > 60 06/07/18 05:50 Est GFR (Non-Af Amer) > 60 06/07/18 05:50 POC Glucose (mg/dL) 102 mg/dL (65-110) 06/08/18 06:29 Random Glucose 122 mg/dL (75-110) H 06/07/18 05:50 Lactic Acid 0.9 MMOL/L (0.7-2.1) 06/06/18 16:00 Calcium 8.2 mg/dL (8.4-10.2) L 06/07/18 05:50 Total Bilirubin 1.0 mg/dl (0.2-1.3) 06/06/18 16:10 AST 41 U/L (17-59) 06/06/18 16:10 ALT 42 U/L (21-72) 06/06/18 16:10 Alkaline Phosphatase 70 U/L (38-126) 06/06/18 16:10 Total Protein 8.0 G/DL (6.3-8.2) 06/06/18 16:10 Albumin 4.0 g/dL (3.5-5.0) 06/06/18 16:10 Globulin 4.0 gm/dL (2.2-3.9) H 06/06/18 16:10 Albumin/Globulin Ratio 1.0 (1.0-2.1) 06/06/18 16:10 Procalcitonin 0.05 NG/ML (0.19-0.49) L 06/07/18 05:50 TSH 3rd Generation 2.13 mIU/ML (0.46-4.68) 06/06/18 16:10 Vancomycin Trough < 5.0 ug/mL (5.0-10.0) L 06/06/18 20:14 Blood Type A POSITIVE 06/06/18 16:06 Blood Type Confirm A POSITIVE 06/06/18 18:01 Antibody Screen Negative 06/06/18 16:06 BBK History Checked No verified bt 06/06/18 16:06 - Hospital Course Hospital Course: 58 y/o man w/ pmh of COPD, asymptomatic HIV (On ART), Hep C (treated), substance abuse, hypertension, depression and Morbid obesity admitted to [facility] for evaluation and treatment of b/l lower extremities cellulitis. U/S of bilateral LE was negative for DVT, XR of ankles negative for osseus findings however does have edema. WBC not elevated and procalcitonin 0.05. Patient seen and examined this morning, complains of pain but relieved w/ medication. Rash is improved and has regressed from demarcated lines. Patient able to ambulate. The patient has no other complaints. The patient has been seen, examined, and deemed medically fit for discharge home. Patient to be DC'ed w/ augmentin 875- 125 PO Q12h for 12 days. Patient to follow up w/ PMD in 1 week. Discharge Exam - Head Exam Head Exam: ATRAUMATIC, NORMOCEPHALIC - Eye Exam Eye Exam: Normal appearance - ENT Exam ENT Exam: Mucous Membranes Moist - Neck Exam Neck exam: Full Rom - Respiratory Exam Respiratory Exam: Clear to PA & Lateral, NORMAL BREATHING PATTERN. absent: Rales, Rhonchi, Wheezes, Respiratory Distress - Cardiovascular Exam Cardiovascular Exam: REGULAR RHYTHM - GI/Abdominal Exam GI & Abdominal Exam: Normal Bowel Sounds, Soft. absent: Tenderness - Extremities Exam Extremities exam: pedal edema Additional comments: Streaking cellulitis noted to b/l lower extremities improved with regression from demarcated lines, L>R with associated warmth to erythematous areas. No purulence, no drainage, no weeping, no malodor appreciated. R lower extremity cellulitis, resolving. - Neurological Exam Neurological exam: Alert, Oriented x3 - Psychiatric Exam Psychiatric exam: Normal Affect, Normal Mood - Skin Skin Exam: Dry, Erythema (at site of cellulitis only), Warm Discharge Plan - Discharge Medications Prescriptions: Amoxicillin/Clavulanate [Augmentin 875 MG-125 MG] 1 tab PO Q12H 12 Days #24 tab RX: Thania.stocking,Knee,Reg,Xlrg [T.e.d. Anti-Embolism Stocking] 1 each MC PRN PRN #1 each PRN Reason: Swelling - Follow Up Plan Condition: FAIR Disposition: HOME/ ROUTINE <Vidya Wahl - Last Filed: 06/08/18 09:52> Provider - Provider Date of Admission: 06/06/18 18:00 Attending physician: Anoop Smith MD Hospital Course - Lab Results Lab Results: Micro Results 06/06/18 17:30 Blood Blood Culture - Preliminary NO GROWTH AFTER 24 HOURS 06/06/18 17:30 Blood Blood Culture - Preliminary NO GROWTH AFTER 24 HOURS Most Recent Lab Values WBC 3.9 K/uL (4.8-10.8) L 06/08/18 07:00 RBC 3.83 Mil/uL (4.40-5.90) L 06/08/18 07:00 Hgb 11.4 g/dL (12.0-18.0) L 06/08/18 07:00 Hct 34.9 % (35.0-51.0) L 06/08/18 07:00 MCV 91.2 fl (80.0-94.0) 06/08/18 07:00 MCH 29.7 pg (27.0-31.0) 06/08/18 07:00 MCHC 32.5 g/dL (33.0-37.0) L 06/08/18 07:00 RDW 15.1 % (11.5-14.5) H 06/08/18 07:00 Plt Count 86 K/uL (130-400) L 06/08/18 07:00 MPV 8.4 fl (7.2-11.7) 06/08/18 07:00 Neut % (Auto) 40.7 % (50.0-75.0) L 06/08/18 07:00 Lymph % (Auto) 46.5 % (20.0-40.0) H 06/08/18 07:00 Rush % (Auto) 8.5 % (0.0-10.0) 06/08/18 07:00 Eos % (Auto) 3.4 % (0.0-4.0) 06/08/18 07:00 Baso % (Auto) 0.9 % (0.0-2.0) 06/08/18 07:00 Neut # (Auto) 1.6 K/uL (1.8-7.0) L 06/08/18 07:00 Lymph # (Auto) 1.8 K/uL (1.0-4.3) 06/08/18 07:00 Rush # (Auto) 0.3 K/uL (0.0-0.8) 06/08/18 07:00 Eos # (Auto) 0.1 K/uL (0.0-0.7) 06/08/18 07:00 Baso # (Auto) 0.0 K/uL (0.0-0.2) 06/08/18 07:00 PT 13.2 Seconds (9.8-13.1) H 06/06/18 16:10 INR 1.2 06/06/18 16:10 APTT 33.3 Seconds (25.6-37.1) 06/06/18 16:10 Sodium 139 mmol/l (132-148) 06/07/18 05:50 Potassium 3.8 MMOL/L (3.6-5.0) 06/07/18 05:50 Chloride 105 mmol/L (98-107) 06/07/18 05:50 Carbon Dioxide 28 mmol/L (22-30) 06/07/18 05:50 Anion Gap 10 (10-20) 06/07/18 05:50 BUN 20 mg/dl (9-20) 06/07/18 05:50 Creatinine 1.1 mg/dl (0.8-1.5) 06/07/18 05:50 Est GFR ( Amer) > 60 06/07/18 05:50 Est GFR (Non-Af Amer) > 60 06/07/18 05:50 POC Glucose (mg/dL) 102 mg/dL (65-110) 06/08/18 06:29 Random Glucose 122 mg/dL (75-110) H 06/07/18 05:50 Lactic Acid 0.9 MMOL/L (0.7-2.1) 06/06/18 16:00 Calcium 8.2 mg/dL (8.4-10.2) L 06/07/18 05:50 Total Bilirubin 1.0 mg/dl (0.2-1.3) 06/06/18 16:10 AST 41 U/L (17-59) 06/06/18 16:10 ALT 42 U/L (21-72) 06/06/18 16:10 Alkaline Phosphatase 70 U/L (38-126) 06/06/18 16:10 Total Protein 8.0 G/DL (6.3-8.2) 06/06/18 16:10 Albumin 4.0 g/dL (3.5-5.0) 06/06/18 16:10 Globulin 4.0 gm/dL (2.2-3.9) H 06/06/18 16:10 Albumin/Globulin Ratio 1.0 (1.0-2.1) 06/06/18 16:10 Procalcitonin 0.05 NG/ML (0.19-0.49) L 06/07/18 05:50 TSH 3rd Generation 2.13 mIU/ML (0.46-4.68) 06/06/18 16:10 Vancomycin Trough < 5.0 ug/mL (5.0-10.0) L 06/06/18 20:14 Blood Type A POSITIVE 06/06/18 16:06 Blood Type Confirm A POSITIVE 06/06/18 18:01 Antibody Screen Negative 06/06/18 16:06 BBK History Checked No verified bt 06/06/18 16:06 Attending/Attestation - Attestation I have personally seen and examined this patient.: Yes I have fully participated in the care of the patient.: Yes I have reviewed all pertinent clinical information, including history, physical exam and plan: Yes Notes (Text): 06/08/18 09:52 Seen, examined, and discussed with resident. Agree with findings and plan as above.
[2018-06-08] MEDS: Tiotropium 18 mcg Cap For Inhalation IH SCH (10:51)
[2018-06-08] MEDS ORDERED: Piperacillin/Tazobact 3.375 GM in Sodium Chloride 0.9% 100 ML IVPB SCH (14:00)
== END 2018-06-08 14:36 | disposition home or self-care (01) ==
LOC: H.ER 15:12 → H.ERHOLD 18:00 → H.MEDSURG1 06-07 22:22
DX: L03.115 Cellulitis of right lower limb (principal); L03.116 Cellulitis of left lower limb; Z79.51 Long term (current) use of inhaled steroids; Z82.5 Family history of asthma and other chronic lower respiratory diseases; Z90.49 Acquired absence of other specified parts of digestive tract; B19.20 Unspecified viral hepatitis C without hepatic coma; E66.01 Morbid (severe) obesity due to excess calories; F11.20 Opioid dependence, uncomplicated; F32.9 Major depressive disorder, single episode, unspecified; F41.9 Anxiety disorder, unspecified; Z79.899 Other long term (current) drug therapy; R21 Rash and other nonspecific skin eruption; Z21 Asymptomatic human immunodeficiency virus [HIV] infection status; F17.210 Nicotine dependence, cigarettes, uncomplicated; I10 Essential (primary) hypertension; J44.9 Chronic obstructive pulmonary disease, unspecified
CPT/HCPCS: 36415; 71045; 73610; 80048; 80053; 80202; 82948; 83605; 84145; 84443; 85025; 85610; 85730; 86850; 86900; 87040; 87086; 93005; 93970; 96365; 96372; 96374; 99285; G0378; J1650; J1885; J2270; J2543; J7030